=== PATIENT | female | born 1935 | race Caucasian/White ===

== ENCOUNTER → 2017-03-14 | Day surgery (SDC) | payer OTHER, MEDICARE ==
[2017-02-21 09:57] VITALS: Ht 158.8 cm; Wt 51.8 kg
[~2017-03-14] VITALS: Ht 158.8 cm; Wt 51.8 kg
[~2017-03-14] MED LIST: 500ML BSS 0.3ML EPI 1:1000PF IRRIG ONE; ACETAMINOPHEN 325 MG TAB PO PRN; AMVISC PLUS 0.8ML SYRINGE INT OCU ONE; ATROPINE SULFATE 0.1 MG/ML 5ML SYR IV PRN; BSS FLUSH ONE; EpHEDrine SULFATE INJ 50 MG/ML AMP IV PRN; EpINEphrine INJ 1MG/ML AMP 1 MG/ML AMP ONE; LACTATED RINGER'S 1000ML 500 ML IV SCH; LIDOCAINE 3.5% OPH GEL PER APPLICATION CHARGE ONE; LIDOCAINE HCL 1% MPF 2 ML VIAL ONE; MIDAZOLAM HCL 1 MG/ML 2ML VIAL ONE; MISCCAP80 PO; OCUCOAT 1 ML SOLN IO ONE; PHENYLEPHRINE HCL 10% OP SOLN PER DROP CHARGE OPR SCH; POVIDONE-IODINE OP SOLN 30 ML BTL ONE; PROPARACAINE 0.5% OP SOLN PER DROP CHARGE OPR SCH; TOBRAMYCIN/DEXAMETHASONE OPH OINT PER APPLN CHARGE ONE
[2017-03-14] MEDS: PHENYLEPHRINE HCL 2.5% OP SOLN PER DROP CHARGE OPR SCH ×2 (07:00→07:06)
[2017-03-14] MEDS: TROPICAMIDE 1% OP SOLN PER DROP CHARGE OPR SCH ×2 (07:01→07:06)
[2017-03-14] MEDS: CYCLOPENTOLATE HCL 1% OP SOLN PER DROP CHARGE OPR SCH ×2 (07:02→07:07)
[2017-03-14] MEDS: KETOROLAC 0.5% OP SOLN PER DROP CHARGE OPR SCH ×2 (07:03→07:08)
[2017-03-14] MEDS: GATIFLOXACIN OP SOLN PER DROP CHARGE OPR SCH ×2 (07:04→07:14)
--- NOTE | 2017-03-14 07:30 | History & Physical Bridge - SC ---
H&P Re-Evaluation Bridge Note: I have examined the patient, reviewed the History & Physical and in the interval since the performance of the History & Physical I have noted the following changes of clinical significance: Diagnosis: Right Cataract Procedure: Right Cataract Removal with Lens Implant No changes noted
--- NOTE | 2017-03-14 08:15 | Discharge Instructions-SurgCtr ---
Discharge Instructions Date of Service Mar 14, 2017. Visit Reason for Visit: Cataract Right Eye Discharge Discharge Diagnosis / Problem: cataract Discharge Goals Goal(s): Improve function Activity Recommendations Activity Limitations: per Instructions/Follow-up section Anesthesia . Post Anesthesia Instructions: If you have had General Anesthesia or IV Sedation: * Do not drive today. * Resume driving when surgeon permits. * Do not make important decisions or sign legal documents today. * Call surgeon for: 1. Temperature elevations greater than 101 degrees F. 2. Uncontrollable pain. 3. Excessive bleeding. 4. Persistent nausea and vomiting. 5. Medication intolerance (nausea, vomiting or rash). * For nausea and vomiting use only clear liquids such as: tea, soda, bouillon until nausea subsides, then gradually increase diet as tolerated. * If you have any concerns or questions, call your surgeon's office. If physician is unavailable and it is an emergency, call 911 or go to the nearest emergency room. . Diet Recommendations Home Diet: resume previous diet Procedures Procedures Performed: Right Cataract Phacoemulsification With Intraocular Lens Implant Pending Studies Studies pending at discharge: no Medical Emergencies . Who to Call and When: Medical Emergencies: If at any time you feel your situation is an emergency, please call 911 immediately. . Non-Emergent Contact Non-Emergency issues call your: [employer] . . "Provider Documentation" section prepared by Bud Wilhelm. .
--- NOTE | 2017-03-14 08:15 | [facility] Operative Report ---
Operative Report Date of Service Mar 14, 2017. Operative Report 1. PREOPERATIVE DIAGNOSIS: Cataract of the right eye. 2. POSTOPERATIVE DIAGNOSIS: Same. 3. PROCEDURE: Phacoemulsification with intraocular lens implantation of the right eye. SURGEON: Dr. Bud Wilhelm. ANESTHESIA: Topical Lidocaine gel, 1% Non- Preserved intracameral Lidocaine, and monitored intravenous sedation. INDICATIONS FOR THE PROCEDURE: The patient is a 81 - year-old female with a history of cataract of the right eye causing significant visual impairment. The details of the proposed procedure were explained to the patient who asked appropriate questions and following discussion of all risks, benefits and alternatives agreed to have the procedure done. 4. OPERATION AND FINDINGS: DESCRIPTION OF PROCEDURE: After informed consent was obtained, the patient was brought to the Operating Room at the [facility]. The patient was placed in a supine position and then the right eye was prepped and draped in the usual sterile fashion for intraocular surgery. A drop of topical Lidocaine gel was placed in the operative eye. A wire lid speculum was then placed in the fornices. A corneal paracentesis was then created temporally. The Non-Preserved Lidocaine was then instilled into the anterior chamber. The anterior chamber was then pressurized with viscoelastic. A 2.0 mm clear corneal incision was then created temporally. A cystotome was inserted into the anterior chamber and used to create a tear in the anterior lens capsule. This capsular tear was then used to create a small flap and the flap was dragged in a counterclockwise direction in order to create a continuous curvilinear capsulorrhexis. Hydrodissection was accomplished with balanced salt solution. Phacoemulsification of the lens nucleus was then performed in a standard [id number] technique. The phaco time was 38 seconds with an average power of 19 %. The remaining cortical material was removed using irrigation aspiration. The capsular bag was then filled with viscoelastic. A Bausch & Lomb MI60L +20.0 diopters lens was then loaded into the injector and injected into the capsular bag. The remaining viscoelastic was removed with the irrigation aspiration handpiece. The wound was hydrated and then checked and found to be watertight. The intraocular pressure was checked and found to be adequate. The wire lid speculum was removed and the patient's face was cleaned and dried. TobraDex ointment was placed in the inferior fornix. The patient was discharged to the Recovery Room having tolerated the procedure well. There were no complications. The patient will be seen tomorrow in the office for follow-up. I attest to the content of the Intraoperative Record and any orders documented therein. Any exceptions are noted below.
[2017-03-14 08:16] VITALS: TEMP 36.7
[2017-03-14 08:36] VITALS: BP 107/66; PULSE 69; O2SAT 98
--- NOTE | 2017-03-14 08:38 | Anesthesia Progress Nt - [facility] ---
Anesthesia Post Op Note Date & Time Mar 14, 2017 at 08:37 Vital Signs Pain Intensity: 0 Vital Signs Past 12 Hours Date Time Temp Pulse Resp B/P (MAP) Pulse Ox O2 Delivery O2 Flow Rate FiO2 03/14/17 08:16 36.7 72 16 105/65 (78) 99 Room Air 03/14/17 06:52 36.7 70 16 144/70 (94) 99 Room Air Notes Mental Status: alert / awake / arousable, participated in evaluation Pt Amnestic to Procedure: Yes Nausea / Vomiting: adequately controlled Pain: adequately controlled Airway Patency, RR, SpO2: stable & adequate BP & HR: stable & adequate Hydration State: stable & adequate Anesthetic Complications: no major complications apparent
--- NOTE | 2017-03-14 08:52 | Anesthesia Progress Nt - [facility] ---
Anesthesia Post Op Note Date & Time Mar 14, 2017 at 08:52 Vital Signs Pain Intensity: 0 Vital Signs Past 12 Hours Date Time Temp Pulse Resp B/P (MAP) Pulse Ox O2 Delivery O2 Flow Rate FiO2 03/14/17 08:36 69 16 107/66 (80) 98 Room Air 03/14/17 08:16 36.7 72 16 105/65 (78) 99 Room Air 03/14/17 06:52 36.7 70 16 144/70 (94) 99 Room Air Notes Mental Status: alert / awake / arousable, participated in evaluation Pt Amnestic to Procedure: Yes Nausea / Vomiting: adequately controlled Pain: adequately controlled Airway Patency, RR, SpO2: stable & adequate BP & HR: stable & adequate Hydration State: stable & adequate Anesthetic Complications: no major complications apparent
== END | disposition home or self-care (01) ==
LOC: X.SURG 06:39
PROVIDERS: ATTEND Ophthalmology
DX: H26.9 Unspecified cataract (principal); Z88.1 Allergy status to other antibiotic agents; Z88.2 Allergy status to sulfonamides; Z90.710 Acquired absence of both cervix and uterus; Z98.890 Other specified postprocedural states

== ENCOUNTER → 2017-04-18 | Day surgery (SDC) | payer OTHER, MEDICARE ==
[2017-03-28 10:47] VITALS: Ht 158.8 cm; Wt 51.8 kg
[~2017-04-18] VITALS: Ht 158.8 cm; Wt 51.8 kg
[~2017-04-18] MED LIST changes: -OCUCOAT 1 ML SOLN IO ONE; +PHENYLEPHRINE HCL 10% OP SOLN PER DROP CHARGE OPL SCH; -PHENYLEPHRINE HCL 10% OP SOLN PER DROP CHARGE OPR SCH; +PROPARACAINE 0.5% OP SOLN PER DROP CHARGE OPL SCH; -PROPARACAINE 0.5% OP SOLN PER DROP CHARGE OPR SCH
[2017-04-18] MEDS: PHENYLEPHRINE HCL 2.5% OP SOLN PER DROP CHARGE OPL SCH ×2 (11:06→11:13)
[2017-04-18] MEDS: TROPICAMIDE 1% OP SOLN PER DROP CHARGE OPL SCH ×2 (11:07→11:14)
[2017-04-18] MEDS: CYCLOPENTOLATE HCL 1% OP SOLN PER DROP CHARGE OPL SCH ×2 (11:08→11:15)
[2017-04-18] MEDS: KETOROLAC 0.5% OP SOLN PER DROP CHARGE OPL SCH ×2 (11:09→11:16)
[2017-04-18] MEDS: GATIFLOXACIN OP SOLN PER DROP CHARGE OPL SCH ×2 (11:10→11:20)
--- NOTE | 2017-04-18 11:33 | History & Physical Bridge - SC ---
H&P Re-Evaluation Bridge Note: I have examined the patient, reviewed the History & Physical and in the interval since the performance of the History & Physical I have noted the following changes of clinical significance: No changes noted
--- NOTE | 2017-04-18 12:18 | Discharge Instructions-SurgCtr ---
Discharge Instructions Date of Service Apr 18, 2017. Visit Reason for Visit: Cataract Left Eye Discharge Discharge Diagnosis / Problem: cataract Discharge Goals Goal(s): Improve function Activity Recommendations Activity Limitations: per Instructions/Follow-up section Anesthesia . Post Anesthesia Instructions: If you have had General Anesthesia or IV Sedation: * Do not drive today. * Resume driving when surgeon permits. * Do not make important decisions or sign legal documents today. * Call surgeon for: 1. Temperature elevations greater than 101 degrees F. 2. Uncontrollable pain. 3. Excessive bleeding. 4. Persistent nausea and vomiting. 5. Medication intolerance (nausea, vomiting or rash). * For nausea and vomiting use only clear liquids such as: tea, soda, bouillon until nausea subsides, then gradually increase diet as tolerated. * If you have any concerns or questions, call your surgeon's office. If physician is unavailable and it is an emergency, call 911 or go to the nearest emergency room. . Diet Recommendations Home Diet: resume previous diet Procedures Procedures Performed: Left Cataract Phacoemulsification With Intraocular Lens Implant Pending Studies Studies pending at discharge: no Medical Emergencies . Who to Call and When: Medical Emergencies: If at any time you feel your situation is an emergency, please call 911 immediately. . Non-Emergent Contact Non-Emergency issues call your: [employer] . . "Provider Documentation" section prepared by Bud Wilhelm. .
--- NOTE | 2017-04-18 12:19 | [facility] Operative Report ---
Operative Report Date of Service Apr 18, 2017. Operative Report 1. PREOPERATIVE DIAGNOSIS: Cataract of the left eye. 2. POSTOPERATIVE DIAGNOSIS: Same. 3. PROCEDURE: Phacoemulsification with intraocular lens implantation of the left eye. SURGEON: Dr. Bud Wilhelm. ANESTHESIA: Topical Lidocaine gel, 1% Non- Preserved intracameral Lidocaine, and monitored intravenous sedation. INDICATIONS FOR THE PROCEDURE: The patient is a 81 - year-old female with a history of cataract of the left eye causing significant visual impairment. The details of the proposed procedure were explained to the patient who asked appropriate questions and following discussion of all risks, benefits and alternatives agreed to have the procedure done. 4. OPERATION AND FINDINGS: DESCRIPTION OF PROCEDURE: After informed consent was obtained, the patient was brought to the Operating Room at the [facility]. The patient was placed in a supine position and then the left eye was prepped and draped in the usual sterile fashion for intraocular surgery. A drop of topical Lidocaine gel was placed in the operative eye. A wire lid speculum was then placed in the fornices. A corneal paracentesis was then created temporally. The Non-Preserved Lidocaine was then instilled into the anterior chamber. The anterior chamber was then pressurized with viscoelastic. A 2.0 mm clear corneal incision was then created temporally. A cystotome was inserted into the anterior chamber and used to create a tear in the anterior lens capsule. This capsular tear was then used to create a small flap and the flap was dragged in a counterclockwise direction in order to create a continuous curvilinear capsulorrhexis. Hydrodissection was accomplished with balanced salt solution. Phacoemulsification of the lens nucleus was then performed in a standard [id number] technique. The phaco time was 26 seconds with an average power of 12 %. The remaining cortical material was removed using irrigation aspiration. The capsular bag was then filled with viscoelastic. A Bausch & Lomb MI60L +20.0 diopters lens was then loaded into the injector and injected into the capsular bag. The remaining viscoelastic was removed with the irrigation aspiration handpiece. The wound was hydrated and then checked and found to be watertight. The intraocular pressure was checked and found to be adequate. The wire lid speculum was removed and the patient's face was cleaned and dried. TobraDex ointment was placed in the inferior fornix. The patient was discharged to the Recovery Room having tolerated the procedure well. There were no complications. The patient will be seen tomorrow in the office for follow-up. I attest to the content of the Intraoperative Record and any orders documented therein. Any exceptions are noted below.
--- NOTE | 2017-04-18 12:54 | Anesthesia Progress Nt - [facility] ---
Anesthesia Post Op Note Date & Time Apr 18, 2017 at 12:53 Vital Signs Pain Intensity: 0 Vital Signs Past 12 Hours Date Time Temp Pulse Resp B/P (MAP) Pulse Ox O2 Delivery O2 Flow Rate FiO2 04/18/17 12:18 36.4 69 14 102/69 (80) 95 Room Air 04/18/17 10:58 36.5 67 22 120/74 (89) 100 Room Air Notes Mental Status: alert / awake / arousable, participated in evaluation Pt Amnestic to Procedure: Yes Nausea / Vomiting: adequately controlled Pain: adequately controlled Airway Patency, RR, SpO2: stable & adequate BP & HR: stable & adequate Hydration State: stable & adequate Anesthetic Complications: no major complications apparent
[2017-04-18 13:01] VITALS: BP 110/73; PULSE 68; O2SAT 96
== END | disposition home or self-care (01) ==
LOC: X.SURG 10:35
PROVIDERS: ATTEND Ophthalmology
DX: H26.9 Unspecified cataract (principal); K21.9 Gastro-esophageal reflux disease without esophagitis; K58.9 Irritable bowel syndrome, unspecified; Z79.899 Other long term (current) drug therapy

== ENCOUNTER 2017-07-28 17:38 | Emergency (ER) | payer OTHER, MEDICARE ==
[~2017-07-28] VITALS: Ht 158.8 cm; Wt 53.3 kg
[~2017-07-28 17:38] MED LIST changes: -500ML BSS 0.3ML EPI 1:1000PF IRRIG ONE; -ACETAMINOPHEN 325 MG TAB PO PRN; -AMVISC PLUS 0.8ML SYRINGE INT OCU ONE; -ATROPINE SULFATE 0.1 MG/ML 5ML SYR IV PRN; -BSS FLUSH ONE; -EpHEDrine SULFATE INJ 50 MG/ML AMP IV PRN; -EpINEphrine INJ 1MG/ML AMP 1 MG/ML AMP ONE; -LACTATED RINGER'S 1000ML 500 ML IV SCH; -LIDOCAINE 3.5% OPH GEL PER APPLICATION CHARGE ONE; -LIDOCAINE HCL 1% MPF 2 ML VIAL ONE; -MIDAZOLAM HCL 1 MG/ML 2ML VIAL ONE; -PHENYLEPHRINE HCL 10% OP SOLN PER DROP CHARGE OPL SCH; -POVIDONE-IODINE OP SOLN 30 ML BTL ONE; -PROPARACAINE 0.5% OP SOLN PER DROP CHARGE OPL SCH; -TOBRAMYCIN/DEXAMETHASONE OPH OINT PER APPLN CHARGE ONE
[2017-07-28 17:45] VITALS: Ht 158.8 cm; Wt 53.3 kg
[2017-07-28 18:10] VITALS: O2SAT 99
[2017-07-28 18:23] LABS: BASO % 0.4 %; BASO ABS # 0.03 K/uL (0-0.2); EOS % 0.1 %; EOS ABS # 0.01 K/uL (0-0.5); HEMATOCRIT 38.3 % (37-47); HEMOGLOBIN 13.3 g/dL (12.0-16.0); IG# 0.02 K/uL (0.00-0.02); LYMPH % 24.3 %; LYMPH ABS # 1.65 K/uL (1.2-3.4); MEAN CELL VOLUME 100.8 fL (80-100); MEAN CORPUSCULAR HGB CONC 34.7 g/dl (32-36); MEAN PLATELET VOLUME 8.7 fL (7.4-10.4); MONO % 12.7 %; MONO ABS # 0.86 K/uL (0.11-0.59); NEUT % 62.2 %; NEUT ABS # 4.22 K/uL (1.4-6.5); PLATELET COUNT 239 K/uL (130-400); RED CELL DISTRIBUTION WIDTH CV 14.2 % (11.5-14.5); RED CELL DISTRIBUTION WIDTH SD 52.2 fL (36.4-46.3); WHITE BLOOD COUNT 6.79 K/uL (4.8-10.8)
[2017-07-28 18:32] LABS: PTT PATIENT 25.9 SECONDS (21.0-31.0)
[2017-07-28] MEDS ORDERED: GI COCKTAIL PO STA (18:32)
[2017-07-28] MEDS ORDERED: ACETAMINOPHEN 325 MG TAB PO STA (18:32)
[2017-07-28] MEDS ORDERED: FAMOTIDINE 20 MG TAB PO ONE (18:45)
--- NOTE | 2017-07-28 18:47 | EMERGENCY ROOM VISIT NOTE ---
History Report prepared by Laney: Bryan Sneed Under the Supervision of: Dr. Enrrique Singh M.D. First contact with patient: 18:00 Chief Complaint: CHEST PAIN Stated Complaint: CHEST PAINS Nursing Triage Summary: Patient reports intermittent chest pains two nights ago. Patient has a history of costracondritis and thought that the chest pains were related to that. Patient states "It's kind of a sharp pain maybe. On the way here, I developed a burning sensation in the left side of my chest." Patient is concerned that the pain could be digestion related. Patient reports fracturing the left upper arm in March. She has had therapy on the arm since that time and constantly has aching and tingling in the left arm. History of Present Illness The patient is an 81 year old white female with a past medical history of costochondritis who presents to the ED with a cc of constant, sharp, left-sided chest pain beginning yesterday. The patient states her pain was intermittent yesterday. She reports heat relieved her symptoms two times throughout the day. The patient notes she tried using heat a third, but it did not work, and her pain became constant. Positive recent broken humerus that she has been completing PT for. Pt started using resistant bands in her last therapy session , and she is right handed. Negative radiating pain, a history of blood clots in her legs or lungs, a history of heart or lung problems, recent travel, recent falling, worsening pain upon exertion, SOB, cough, fever, chills, taking pain medication at home, nausea, vomiting, sweating, abdominal pain, leg pain, leg swelling, recent antibiotic use, stress test and heart catheterization two years ago. Source of History: patient Onset: yesterday Position: chest (left) Quality: sharp Timing: constant Modifying Factors (Relieving): other (heat 2/3 times) Associated Symptoms: No fevers, No chills, No cough, No SOB, No nausea, No vomiting, No abdominal pain Note: Associated symptoms: starting resistance bands at PT, negative stress test and heart catheterization two years ago. Denies: radiating pain, a history of blood clots in her legs or lungs, a history of heart or lung problems, recent travel, recent falling, worsening pain upon exertion, taking pain medication at home, sweating, leg pain, leg swelling, recent antibiotic use, Review of Systems See HPI for pertinent positives and negatives. A total of ten systems were reviewed and were otherwise negative. Past Medical & Surgical Medical Problems: (1) C. difficile colitis (2) Costochondritis Family History Patient reports no known family medical history. Social History Smoking Status: Never Smoker Marital Status: Occupation Status: retired Current/Historical Medications Scheduled Probiotic Product (Probiotic), 1 CAP PO QAM Allergies Coded Allergies: Ciprofloxacin (Verified Allergy, Unknown, STOMACH PAINS, 04/26/17) Metronidazole (Verified Allergy, Unknown, STOMACH/DIGESTIVE PAIN, 04/26/17 ) NSAIDs (Verified Allergy, Unknown, STOMACH PAIN, 04/26/17) Sulfa Antibiotics (Verified Allergy, Unknown, SEVERE STOMACH PAINS, ) Physical Exam Vital Signs Date Time Temp Pulse Resp B/P (MAP) Pulse Ox O2 Delivery O2 Flow Rate FiO2 07/28/17 20:01 82 16 121/66 98 Room Air 07/28/17 19:07 90 16 136/69 98 Room Air 07/28/17 18:12 94 07/28/17 18:10 99 Room Air 07/28/17 18:00 Room Air 07/28/17 17:45 87 18 146/82 99 Room Air Physical Exam GENERAL: Awake, alert, well-appearing, NAD HENT: Normocephalic, atraumatic. EYES: Normal conjunctiva. Sclera non-icteric. NECK: Supple. No nuchal rigidity. FROM. RESPIRATORY: CTAB, no rhonchi, wheezing, crackles CARDIAC: RRR, no MRG ABDOMEN: Soft, NTND, BS+ MSK: Mild, reproducible chest wall TTP - no erythema, calor, or crepitus. no LE edema NEURO: GCS 15, CN 2-12 intact, moves all 4s on command SKIN: No rash or jaundice noted. Medical Decision & Procedures ER Provider Diagnostic Interpretation: X-ray: Per my interpretation, radiologist review. CHEST ONE VIEW PORTABLE HISTORY: 81 years-old Female CHEST PAIN acute atypical chest pain COMPARISON: None available TECHNIQUE: Portable AP view of the chest FINDINGS: Cardiomediastinal and hilar silhouettes are within normal limits. No pneumothorax, pleural effusion, focal airspace consolidation or overt pulmonary edema. The bones of the chest appear grossly intact. IMPRESSION: No acute process. The above report was generated using voice recognition software. It may contain grammatical, syntax or spelling errors. Electronically signed by: Isaac Coleman M.D. 07/28/2017 6:54 PM Dictated Date/Time: 07/28/2017 6:53 PM Laboratory Results 07/28/17 18:10 Red Blood Count 3.80, Mean Corpuscular Volume 100.8, Mean Corpuscular Hemoglobin 35.0, Mean Corpuscular Hemoglobin Concent 34.7, Mean Platelet Volume 8.7, Neutrophils (%) (Auto) 62.2, Lymphocytes (%) (Auto) 24.3, Monocytes (%) ( Auto) 12.7, Eosinophils (%) (Auto) 0.1, Basophils (%) (Auto) 0.4, Neutrophils # (Auto) 4.22, Lymphocytes # (Auto) 1.65, Monocytes # (Auto) 0.86, Eosinophils # ( Auto) 0.01, Basophils # (Auto) 0.03 07/28/17 18:10 Test 07/28/17 18:10 White Blood Count 6.79 K/uL (4.8-10.8) Red Blood Count 3.80 M/uL (4.2-5.4) Hemoglobin 13.3 g/dL (12.0-16.0) Hematocrit 38.3 % (37-47) Mean Corpuscular Volume 100.8 fL (80-100) Mean Corpuscular Hemoglobin 35.0 pg (25-34) Mean Corpuscular Hemoglobin Concent 34.7 g/dl (32-36) Platelet Count 239 K/uL (130-400) Mean Platelet Volume 8.7 fL (7.4-10.4) Neutrophils (%) (Auto) 62.2 % Lymphocytes (%) (Auto) 24.3 % Monocytes (%) (Auto) 12.7 % Eosinophils (%) (Auto) 0.1 % Basophils (%) (Auto) 0.4 % Neutrophils # (Auto) 4.22 K/uL (1.4-6.5) Lymphocytes # (Auto) 1.65 K/uL (1.2-3.4) Monocytes # (Auto) 0.86 K/uL (0.11-0.59) Eosinophils # (Auto) 0.01 K/uL (0-0.5) Basophils # (Auto) 0.03 K/uL (0-0.2) RDW Standard Deviation 52.2 fL (36.4-46.3) RDW Coefficient of Variation 14.2 % (11.5-14.5) Immature Granulocyte % (Auto) 0.3 % Immature Granulocyte # (Auto) 0.02 K/uL (0.00-0.02) Prothrombin Time 10.6 SECONDS (9.0-12.0) Prothromb Time International Ratio 1.0 (0.9-1.1) Activated Partial Thromboplast Time 25.9 SECONDS (21.0-31.0) Partial Thromboplastin Ratio 1.0 Anion Gap 9.0 mmol/L (3-11) Est Creatinine Clear Calc Drug Dose 54.1 ml/min Estimated GFR () 96.0 Estimated GFR (Non- 82.8 BUN/Creatinine Ratio 21.0 (10-20) Calcium Level 9.1 mg/dl (8.5-10.1) Magnesium Level mg/dl (1.8-2.4) Total Bilirubin 1.6 mg/dl (0.2-1) Direct Bilirubin mg/dl (0-0.2) Aspartate Amino Transf (AST/SGOT) U/L (15-37) Alanine Aminotransferase (ALT/SGPT) 28 U/L (12-78) Alkaline Phosphatase 102 U/L (45-117) Troponin I < 0.015 ng/ml (0-0.045) Pro-B-Type Natriuretic Peptide 140 pg/ml (0-1800) Total Protein 7.5 gm/dl (6.4-8.2) Albumin 3.8 gm/dl (3.4-5.0) Lipase 148 U/L (73-393) Laboratory results reviewed by me Medications Administered Medications (Trade) Dose Ordered Sig/Chacorta Route Start Time Stop Time Status Last Admin Dose Admin Acetaminophen (Tylenol Tab) 650 mg NOW STAT PO 07/28/17 18:32 07/28/17 18:33 DC 07/28/17 19:05 650 MG Famotidine (Pepcid Tab) 20 mg NOW ONCE PO 07/28/17 18:45 07/28/17 18:46 DC 07/28/17 19:04 20 MG Miscellaneous Medication (Gi Cocktail) 24 ml ONE STAT PO 07/28/17 18:32 07/28/17 18:33 DC 07/28/17 18:32 24 ML ECG Per My Interpretation Indication: chest pain Rate (beats per minute): 84 Rhythm: normal sinus Findings: no acute ischemic change, left axis deviation, no ectopy, other ( Normal intervals) ED Course 1817: The patient was evaluated in room B03B. A complete history and physical exam was performed. 1948: I reevaluated the patient. Discussed results and discharge instructions: she verbalized understanding and agreement. The patient is ready for discharge. Medical Decision The patient is an 81 year old white female with a past medical history of costochondritis who presents to the ED with a cc of constant, sharp, left-sided chest pain beginning yesterday. Differential diagnosis: Etiologies such as cardiac ischemia, aortic dissection, pulmonary embolism, pneumonia, pneumothorax, musculoskeletal, infections, pericarditis, myocarditis , esophageal rupture, gastrointestinal, as well as others were entertained. Patient was seen and evaluated the bedside. Patient complained of some left- sided chest pain. Patient states this is nonexertional and sharp. Patient denies any nausea, vomiting, or diaphoresis. Patient state is been intermittent since yesterday. Patient does have a prior history of costochondritis. Patient does have reproducible chest wall pain. Patient had a nonischemic EKG and negative troponin. Patient had no exertional symptoms here in the emergency department. Patient does have a heart score less than 4. Less likely to be ACS. Also of note the patient did have a heart catheterization 2 years prior that was normal along with a negative stress test. Patient does have a follow-up appointment on Monday. I believe this is a suitable follow-up in order to further discuss any of her chest discomfort. Wells of 0, less likely PE. Patient was told additional think she may be able to do for possible costochondritis. Patient was deemed suitable for outpatient follow-up and treatment at this time. Patient was given strict follow-up, discharge, and return precautions. All questions were answered. Patient was deemed suitable for outpatient follow-up at this time. Patient agreed with the plan of care and was safely discharged home. Medication Reconcilliation Current Medication List: was personally reviewed by me Blood Pressure Screening Patient's blood pressure: Normal blood pressure Blood pressure disposition: Did not require urgent referral Impression Primary Impression: Costochondritis Additional Impression: Chest wall pain Scribe Attestation The scribe's documentation has been prepared under my direction and personally reviewed by me in its entirety. I confirm that the note above accurately reflects all work, treatment, procedures, and medical decision making performed by me. Departure Information Dispostion Home / Self-Care Referrals Familia Yanez M.D. (PCP) Forms HOME CARE DOCUMENTATION FORM, IMPORTANT VISIT INFORMATION Patient Instructions ED Chest Pain Nahomy, Mary Jo [facility] Additional Instructions Please return to the emergency department if you have worsening or recurrent symptoms not amenable to at-home treatment. Please call for a follow-up appointment with her primary care physician. Please take your medications as prescribed. If you have other concerns and/or complaints please feel free to also call your primary care physician's office or return the ED for further evaluation, management, and treatment. You may take tylenol 1000 mg every 6 hours as needed for pain. You may try BenGay or icy hot. He may alternate moist heat and ice to the area. Take your medications as prescribed. You have been examined and treated today on an emergency basis only. This is not a substitute for, or an effort to provide, complete comprehensive medical care. It is impossible to recognize and treat all injuries or illnesses in a single emergency department visit. It is therefore important that you follow up closely with [facility], your PCP, and/or your specialist(s). Call as soon as possible for an appointment. Thank you for your time and consideration. I look forward to speaking with you again soon. Please don't hesitate to call us if you have any questions. Problem Qualifiers
[2017-07-28 18:51] LABS: ALBUMIN 3.8 gm/dl (3.4-5.0); ALT/SGPT 28 U/L (12-78); BLOOD UREA NITROGEN 14 mg/dl (7-18); CALCIUM 9.1 mg/dl (8.5-10.1); CARBON DIOXIDE 25 mmol/L (21-32); CREATININE 0.66 mg/dl (0.60-1.20); GLUCOSE 92 mg/dl (70-99); LIPASE 148 U/L (73-393); SODIUM 131 mmol/L (136-145)
[2017-07-28 18:55] LABS: ALKALINE PHOSPHATASE 102 U/L (45-117); TOTAL PROTEIN 7.5 gm/dl (6.4-8.2)
--- NOTE | 2017-07-28 18:55 | DIAGNOSTIC IMAGING REPORT ---
CHEST ONE VIEW PORTABLE HISTORY: 81 years-old Female CHEST PAIN acute atypical chest pain COMPARISON: None available TECHNIQUE: Portable AP view of the chest FINDINGS: Cardiomediastinal and hilar silhouettes are within normal limits. No pneumothorax, pleural effusion, focal airspace consolidation or overt pulmonary edema. The bones of the chest appear grossly intact. IMPRESSION: No acute process. The above report was generated using voice recognition software. It may contain grammatical, syntax or spelling errors. Electronically signed by: Isaac Coleman M.D. 07/28/2017 6:54 PM Dictated Date/Time: 07/28/2017 6:53 PM
[2017-07-28] MEDS ORDERED: ALUMINUM/MAGNESIUM SUSP 30 ML UDC ONE (19:03)
[2017-07-28] MEDS ORDERED: LIDOCAINE HCL 2% VISC SOLN 20 ML UDC ONE (19:03)
[2017-07-28 20:01] VITALS: BP 121/66; PULSE 82; O2SAT 98
== END 2017-07-28 20:05 | disposition home or self-care (01) ==
LOC: C.EDB 17:40
DX: M94.0 Chondrocostal junction syndrome [Tietze] (principal); Z88.1 Allergy status to other antibiotic agents; Z88.6 Allergy status to analgesic agent; Z88.2 Allergy status to sulfonamides

== ENCOUNTER 2018-06-17 12:33 | Inpatient (IN) ==
--- NOTE | 2018-06-17 13:11 | XRay Report ---
XR hip RT 2-3V w pelvis CLINICAL HISTORY: fall. Right hip pain. COMPARISON STUDY: None. FINDINGS: There is a mildly impacted subcapital right femoral neck fracture. No dislocation. The visu alized pelvic bones and left hip are intact. IMPRESSION: Mildly impacted subcapital right femoral neck fracture. Electronically signed by: Dilip Lebron M.D. 06/17/2018 1:10 PM
--- NOTE | 2018-06-17 13:18 | Emergency Department Note ---
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 She states she was wearing socks and vacuuming the hardwood floor when she slipped and fell onto her right hip. She notes she has pain radiation to her groin but denies any back pain, knee pain. The patient reports standing worsens her pain and she has never hurt her hip before. Home Medications Home Medications Medication Instructions Recorded Confirmed Type No Known Home Medications 06/17/18 06/17/18 History Allergies Allergy/AdvReac Type Severity Reaction Status Date / Time Cipro Allergy Unknown STOMACH Verified 04/26/17 21:15 PAINS ciprofloxacin Allergy Unknown STOMACH Verified 06/17/18 12:55 PAINS metronidazole Allergy Unknown STOMACH/DIGESTIVE Verified 06/17/18 12:55 PAIN NSAIDS (Non-Steroidal Allergy Unknown STOMACH Verified 06/17/18 12:55 Anti-Inflamma PAIN Sulfa (Sulfonamide Allergy Unknown SEVERE Verified 06/17/18 12:55 Antibiotics) STOMACH PAINS Past Med/Surg History Medical History Costochondritis (Chronic) Family History Other Family history non-contributory Social History marital status: Current Living Situation: Spouse Other Information That Helps Us Care for You: No Feels Safe at Home: Yes Safety Concerns: Feels Safe At This Time Smoking Status: Never smoker Do You Dip or Chew Tobacco: No Second Hand Exposure: No Tobacco Cessation Education Requested by Patient: No Hx Alcohol Use: No Hx Substance Use: No Beliefs That Will Affect Care: None Preferred Language: [place] Communication Ability: Effective Digital Marketing Lead Required: No Review of Systems See HPI for pertinent positives & negatives. and A total of 10 systems reviewed and were otherwise negative Physical Exam Vital Signs Vital Signs - 24 hr 06/17/18 12:25 06/17/18 13:40 06/17/18 14:48 Temperature 36.6 C Temperature Source Oral Sepsis Recent Fever Within 48 Hours No Sepsis New/Unexplained Change in Mental Status No Sepsis Action Taken by Nursing No Action Required Pulse Rate 75 Pulse Rate [Apical] 90 104 H Pulse Rhythm Regular Pulse Rhythm [Apical] Regular Regular Pulse Strength Normal Pulse Strength [Apical] Normal Normal Respiratory Rate 16 16 20 Respiratory Effort / Characteristics Non-Labored Spontaneous Non-Labored Spontaneous Non-Labored Respiratory Depth Normal Normal Normal Respiratory Pattern Regular Regular Regular Blood Pressure 125/62 Blood Pressure [Right Arm] 96/79 L 136/82 Blood Pressure Mean 83 Blood Pressure Mean [Right Arm] 84 100 Blood Pressure Position Lying Blood Pressure Position [Right Arm] Lying Sitting Pulse Oximetry 98 97 96 Oxygen Delivery Method Room Air Room Air Room Air 06/17/18 16:03 06/17/18 16:44 Temperature 36.5 C Temperature Source Oral Sepsis Recent Fever Within 48 Hours Sepsis New/Unexplained Change in Mental Status Sepsis Action Taken by Nursing Pulse Rate 92 H Pulse Rate [Apical] 93 H Pulse Rhythm Pulse Rhythm [Apical] Pulse Strength Pulse Strength [Apical] Respiratory Rate 20 17 Respiratory Effort / Characteristics Respiratory Depth Respiratory Pattern Blood Pressure Blood Pressure [Right Arm] 109/72 Blood Pressure Mean Blood Pressure Mean [Right Arm] 84 Blood Pressure Position Blood Pressure Position [Right Arm] Lying Pulse Oximetry 96 96 Oxygen Delivery Method Room Air Room Air GENERAL: Patient is awake alert in no acute distress patient is resting comfortably and showing no signs of anxiety EYES: The conjunctivae are clear. The pupils are round and reactive. EARS, NOSE, MOUTH AND THROAT: The nose is without any evidence of any deformity. Mucous membranes are moist tongue is midline NECK: The neck is nontender and supple. RESPIRATORY: Normal respiratory effort is noted there is no evidence of wheezing rhonchi or rales CARDIOVASCULAR: Regular rate and rhythm noted there no murmurs rubs or gallops normal S1 normal S2 GASTROINTESTINAL: The abdomen is soft. Bowel sounds are present in all quadrants. Abdomen is nontender BACK: No midline tenderness or or step-off noted range of motion in flexion extension as well as rotation no signs of muscle spasm noted MUSCULOSKELETAL/EXTREMITIES: There is no rotation or shortening of the right hip however there is pain with range of motion of the right hip. There is pain localized to the right groin. SKIN: There is no obvious evidence of any rash. There are no petechiae, pallor or cyanosis noted. NEUROLOGIC: Patient is awake alert and oriented x3 strength is symmetric patellar reflexes are 2+ bilaterally Course 1239: Past medical records reviewed. The patient was evaluated in room B5, and a complete history and physical examination were performed. 1430: I reviewed the patient's case with Marlene Boothe. He will evaluate the patient for further management. Consultations Consultation #1: I reviewed the patient's case with Marlene Boothe. He will evaluate the patient for further management. Time: 14:30 Administered Medications Acetaminophen (Ofirmev) 65 mls @ 200 mls/hr IV Q8H IRENE Stop: 07/17/18 15:59 Last Infusion: 06/17/18 16:00 Dose: 0 mls/hr Admin: 06/17/18 15:31 Dose: 200 mls/hr Potassium Chloride/Sodium Chloride (Normal Saline W/20 Meq Kcl) 20 meq in 1, 000 mls @ 60 mls/hr IV .[id number] IRENE Stop: 07/17/18 16:59 Last Admin: 06/17/18 18:16 Dose: 60 mls/hr Lidocaine (Lidoderm 5%) 1 patch TD QAM IRENE Stop: 07/17/18 15:29 Last Admin: 06/17/18 17:27 Dose: 1 patch Discontinued Medications Potassium Chloride (Klor-Con M10) 40 meq PO NOW STA Stop: 06/17/18 16:03 Last Admin: 06/17/18 17:29 Dose: 40 meq Medical Decision Making Differential Diagnosis Differential diagnoses include but are not limited to: fracture, dislocation, contusion, strain, ligamentous injury, tendon rupture, and septic joint. Medical Records Attestation: I reviewed the patient's medical records. Home Medications Current Medication List: was personally reviewed by me Laboratory Data Attestation: I reviewed the patient's lab results. Result diagrams: 06/17/18 13:35 06/17/18 13:35 Lab Results 06/17/18 06/17/18 06/17/18 Range/Units 13:35 13:35 13:35 WBC 11.63 H (4.8-10.8) K/uL RBC 3.65 L (4.2-5.4) M/uL Hgb 12.4 (12.0-16.0) g/dL Hct 37.3 (37-47) % MCV 102.2 H (80-100) fL MCH 34.0 (25-34) pg MCHC 33.2 (32-36) g/dL RDW Std Deviation 53.2 H (36.4-46.3) fL RDW Coeff of Alicia 14.3 (11.5-14.5) % Plt Count 214 (130-400) K/uL MPV 9.4 (7.4-10.4) fL Immature Gran % (Auto) 0.3 % Neut % (Auto) 83.0 % Lymph % (Auto) 7.1 % [place] % (Auto) 9.4 % Eos % (Auto) 0.0 % Baso % (Auto) 0.2 % Immature Gran # (Auto) 0.04 H (0.00-0.02) K/uL Neut # (Auto) 9.66 H (1.4-6.5) K/uL Lymph # (Auto) 0.82 L (1.2-3.4) K/uL [place] # (Auto) 1.09 H (0.11-0.59) K/uL Eos # (Auto) 0.00 (0-0.5) K/uL Baso # (Auto) 0.02 (0-0.2) K/uL PT 10.9 (9.0-12.0) Seconds INR 1.1 (0.9-1.1) APTT 25.9 (21.0-31.0) Seconds PTT Ratio 1.0 Sodium 135 L (136-145) mmol/L Potassium 3.4 L (3.5-5.1) mmol/L Chloride 100 (98-107) mmol/L Carbon Dioxide 27 (21-32) mmol/L Anion Gap 8.0 (3-11) BUN 16 (7-18) mg/dl Creatinine 0.63 (0.6-1.2) mg/dl Est Cr Clr Drug Dosing 54.5 ml/min Est GFR ( Amer) 96.8 Est GFR (Non-Af Amer) 83.5 BUN/Creatinine Ratio 25.8 H (10-20) Glucose 103 H (70-99) mg/dl Calcium 8.7 (8.5-10.1) mg/dl Magnesium 1.7 L (1.8-2.4) mg/dl Total Bilirubin 1.2 H (0.2-1) mg/dl Direct Bilirubin 0.2 (0-0.2) mg/dl AST 20 (15-37) U/L ALT 26 (12-78) U/L Alkaline Phosphatase 92 (45-117) U/L Troponin I < 0.015 (0-0.045) ng/ml Total Protein 7.1 (6.4-8.2) gm/dl Albumin 3.7 (3.4-5.0) gm/dl Blood Type Antibody Screen 06/17/18 Range/Units 13:50 WBC (4.8-10.8) K/uL RBC (4.2-5.4) M/uL Hgb (12.0-16.0) g/dL Hct (37-47) % MCV (80-100) fL MCH (25-34) pg MCHC (32-36) g/dL RDW Std Deviation (36.4-46.3) fL RDW Coeff of Alicia (11.5-14.5) % Plt Count (130-400) K/uL MPV (7.4-10.4) fL Immature Gran % (Auto) % Neut % (Auto) % Lymph % (Auto) % [place] % (Auto) % Eos % (Auto) % Baso % (Auto) % Immature Gran # (Auto) (0.00-0.02) K/uL Neut # (Auto) (1.4-6.5) K/uL Lymph # (Auto) (1.2-3.4) K/uL [place] # (Auto) (0.11-0.59) K/uL Eos # (Auto) (0-0.5) K/uL Baso # (Auto) (0-0.2) K/uL PT (9.0-12.0) Seconds INR (0.9-1.1) APTT (21.0-31.0) Seconds PTT Ratio Sodium (136-145) mmol/L Potassium (3.5-5.1) mmol/L Chloride (98-107) mmol/L Carbon Dioxide (21-32) mmol/L Anion Gap (3-11) BUN (7-18) mg/dl Creatinine (0.6-1.2) mg/dl Est Cr Clr Drug Dosing ml/min Est GFR ( Amer) Est GFR (Non-Af Amer) BUN/Creatinine Ratio (10-20) Glucose (70-99) mg/dl Calcium (8.5-10.1) mg/dl Magnesium (1.8-2.4) mg/dl Total Bilirubin (0.2-1) mg/dl Direct Bilirubin (0-0.2) mg/dl AST (15-37) U/L ALT (12-78) U/L Alkaline Phosphatase (45-117) U/L Troponin I (0-0.045) ng/ml Total Protein (6.4-8.2) gm/dl Albumin (3.4-5.0) gm/dl Blood Type A Negative Antibody Screen NEGATIVE Imaging Data Radiologist's Impression: Radiology results as stated below per my review and the radiologist's interpretation: XR hip RT 2-3V w pelvis CLINICAL HISTORY: fall. Right hip pain. COMPARISON STUDY: None. FINDINGS: There is a mildly impacted subcapital right femoral neck fracture. No dislocation. The visualized pelvic bones and left hip are intact. IMPRESSION: Mildly impacted subcapital right femoral neck fracture. Electronically signed by: Dilip Lebron M.D. 06/17/2018 1:10 PM XR chest 1V portable HISTORY: Right hip fracture. Preop. fall COMPARISON: Chest 07/28/2017. FINDINGS: The lungs are clear. Cardiac silhouette is normal in size. No pleural effusions. No pneumothorax. IMPRESSION: No acute process. Electronically signed by: Dilip Lebron M.D. 06/17/2018 1:46 PM ECG Data Attestation: I personally reviewed and interpreted this ECG as follows: Indication: other (hip pain) Rate (beats per minute): 93 Findings: + other (no acute ST segments) and + PVC Comparison ECG Date: from (07/28/17) Change: no significant change Blood Pressure Blood Pressure Findings: Normal blood pressure Blood Pressure Disposition: did not require urgent referral MDM Narrative The patient is an 82-year-old female who presented to the emergency department for an evaluation of right hip pain. The patient had a fall from a standing position on hardwood. She had pain with range of motion of her right hip but no significant shortening. X-rays did reveal a subcapital right hip fracture. I discussed the patient's laboratory and radiographic studies with her. I also discussed her case with the on-call [facility] hospitalist group as well as the on-call orthopedic physician for the patient's preferred group. They have agreed to evaluate the patient in the emergency department for further management and possible surgical management as well as disposition. Impression & Plan Hip fracture Discharge Plan Visit Data *Final* Discharge Date/Time: 06/17/18 16:03 Chief Complaint: Hip Pain Stated Complaint: fall, right hip pain ED Provider: Lenin Mai Discharge Problem: Hip fracture Patient Disposition: Admitted As Inpatient Discharge Instructions Interventions: ED Discharge Assessment Last Done: 06/17/18 16:03 The scribe's documentation has been prepared under my direction and personally reviewed by me in its entirety. I confirm that the note above accurately reflects all work, treatment, procedures, and medical decision making performed by me.
--- NOTE | 2018-06-17 13:48 | XRay Report ---
XR chest 1V portable HISTORY: Right hip fracture. Preop. fall COMPARISON: Chest 07/28/2017. FINDINGS: The lungs are clear. Cardiac silhouette is normal in size. No pleural effusions. No pneumot horax. IMPRESSION: No acute process. Electronically signed by: Dilip Lebron M.D. 06/17/2018 1:46 PM
[2018-06-17 13:53] LABS: Basophils # (auto) 0.02 K/uL (0-0.2); Basophils % (auto) 0.2 %; Hematocrit (blood only) 37.3 % (37-47); Hemoglobin 12.4 g/dL (12.0-16.0); Immature Granulocytes # (auto) 0.04 K/uL (0.00-0.02); Immature Granulocytes % (auto) 0.3 %; Lymphocytes # (auto) 0.82 K/uL (1.2-3.4); Lymphocytes % (auto) 7.1 %; Mean Corpuscular Hgb Conc 33.2 g/dL (32-36); Mean Corpuscular Volume 102.2 fL (80-100); Mean Platelet Volume 9.4 fL (7.4-10.4); Monocytes # (auto) 1.09 K/uL (0.11-0.59); Monocytes % (auto) 9.4 %; Neutrophils # (auto) 9.66 K/uL (1.4-6.5); Platelet Count 214 K/uL (130-400); RDW Coefficient of Variation 14.3 % (11.5-14.5); RDW Standard Deviation 53.2 fL (36.4-46.3); Red Blood Count 3.65 M/uL (4.2-5.4); White Blood Count 11.63 K/uL (4.8-10.8)
[2018-06-17 14:01] LABS: INR 1.1 (0.9-1.1); Partial Thromboplastin Time 25.9 Seconds (21.0-31.0); Prothrombin Time 10.9 Seconds (9.0-12.0)
[2018-06-17 14:13] LABS: Alanine Aminotransferase 26 U/L (12-78); Albumin Level 3.7 gm/dl (3.4-5.0); Aspartate Aminotransferase 20 U/L (15-37); BUN Creatinine Ratio 25.8 (10-20); Bilirubin Direct 0.2 mg/dl (0-0.2); Blood Urea Nitrogen 16 mg/dl (7-18); Calcium 8.7 mg/dl (8.5-10.1); Carbon Dioxide 27 mmol/L (21-32); Chloride 100 mmol/L (98-107); Creatinine Clr Calc Pharmacy 54.5 ml/min; Est GFR (African American) 96.8; Est GFR (Non-African American) 83.5; Glucose 103 mg/dl (70-99); Potassium 3.4 mmol/L (3.5-5.1); Sodium 135 mmol/L (136-145)
[2018-06-17 14:18] LABS: Alkaline Phosphatase 92 U/L (45-117); Bilirubin,Total 1.2 mg/dl (0.2-1); Total Protein 7.1 gm/dl (6.4-8.2); Troponin I < 0.015 ng/ml (0-0.045)
[2018-06-17] MEDS: ACETAMINOPHEN 65 ML IV SCH (15:31)
[2018-06-17 15:41] LABS: Magnesium 1.7 mg/dl (1.8-2.4)
[2018-06-17] MEDS ORDERED: POTASSIUM CHLORIDE 10 MEQ TABCR PO STA (16:02)
--- NOTE | 2018-06-17 16:05 | Consultation Report ---
DATE OF ADMISSION: 06/17/2018 CHIEF COMPLAINT: Right groin pain. HISTORY OF PRESENT ILLNESS: Patient is an 82-year-old remarkably healthy female who is independent ambulator, who was vacuuming underneath her couch earlier today. She then kind of transitioned to the hardwood floor and sustained a fall on her right buttock area, acute onset of pain and groin pain. They called 911 and was brought to Emergency Room. There are no other injuries. She had no preexisting hip or groin pain. She is very active and healthy. PAST MEDICAL HISTORY: Noncontributory. PAST SURGICAL HISTORY: Previous surgeries include 1. Hysterectomy. 2. Hernia repair x2. ALLERGIES: 1. CIPRO. 2. FLAGYL. 3. SULFA. 4. NSAIDs WHICH CAUSED GI UPSET. MEDICATIONS: None. SOCIAL HISTORY: This is an 82-year-old female. She has 2 daughters who are physicians. She does not smoke. FAMILY HISTORY: Noncontributory. REVIEW OF SYSTEMS: Negative for diabetes, neurologic problem, vascular problem, bleeding disorders. No chest pain, no shortness of breath. No head injury, no loss of consciousness, no neck pain. She does have a history of GI upset with NSAIDS. PHYSICAL EXAMINATION: GENERAL: Examination reveals a pleasant, elderly, thin female. She is lying in bed and looks comfortable. VITAL SIGNS: Temperature is 36.6. Stable. MUSCULOSKELETAL: A general musculoskeletal exam reveals full and painless range of motion of her cervical, thoracic, lumbar spine as well as both shoulders, both elbows, both hands, and the left lower extremity. Examination of the right lower extremity reveals some tenderness over her buttock and lateral hip area. Her skin is intact. Her leg lengths are equal. There is no visible deformity. She does have some pain with hip motion, but she can actually lift her leg off the bed with some assistance with her arm. She has no knee effusion. She is neurologically intact. IMAGING: X-ray of the right hip revealed valgus impacted femoral neck fracture, notes she has an underlying hip arthritis. LABORATORY DATA: White blood cell count is 11.63, hemoglobin 12.4, hematocrit 37.3. Electrolytes are stable. Potassium is slightly low at 3.4. ASSESSMENT: An 82-year-old quite healthy female with a right valgus impacted femoral neck fracture, status post a fall. No preexisting hip problems. PLAN: We talked about treatment options. Certainly the best treatment for this patient is a cannulated screw fixation. She is going to be admitted to the medicine service, and they are about to see her. She last ate at about 10:30 or 11:00, so we plan on doing this tomorrow. We will keep her n.p.o. after midnight. Will plan on cannulated screw fixation of her right femoral neck fracture. The risks and benefits of this procedure were explained to the patient and family including but not limited to DVT, PE, , infection, neurological injury, vascular injury, bleeding problem, pain, limited range of motion, stiffness, failure to relieve her symptoms, nonunion, malunion, avascular necrosis, need for further surgery in the future. Patient understands and desires to proceed. Informed consent is obtained. Will begin DVT prophylaxis including TEDs and SCDs. Will likely use aspirin postoperatively. Will hold on any preoperative anticoagulation as we are going to do this tomorrow.
[2018-06-17] MEDS ORDERED: ONDANSETRON INJ 2 MG/ML 2 ML VIAL IV PRN (16:41)
[2018-06-17] MEDS: LIDOCAINE 5% 1 PATCH TD SCH (17:27)
[2018-06-17] MEDS: NSS + 20MEQ KCL 20 MEQ/1,000 ML BAG IV SCH (18:16)
--- NOTE | 2018-06-17 18:56 | History & Physical Report ---
Date of Service June 17, 2018 Assessment & Plan (1) Hip fracture: Right Hip xray: IMPRESSION: Mildly impacted subcapital right femoral neck fracture. Discussed with Dr. Bradford Plan for screw fixation of the fracture tomorrow Patient has no known medical comorbidities, very good functional status No medical contraindication to proceed with surgery Patient is low to moderate risk for cardiopulmonary complications perioperatively in light of advanced age Hip fracture order set completed N.p.o. post midnight IV fluids ordered Discussed with patient and also patient's daughter over the phone, Dr. Teddy Escalante Plan of care with discussed in detail They are agreeable and comfortable with the plan of care (2) Hypokalemia: Replace with p.o. potassium (3) Hypomagnesemia: Replace with IV magnesium (4) DVT prophylaxis: SCDs for now Lovenox post surgery (5) Discharge planning issues: Anticipate discharge to rehab once cleared by Luke O post surgery History of Present Illness Primary Care Provider: 82-year-old female with no known past medical history presents with fall and subsequent right hip pain Patient was vacuuming the floor this afternoon morning, turned and accidentally slipped and her right side. She denies hitting her head any other part of her body in the foot. After that patient severe pain of the right hip, prompting consult to the ER. Patient was found to have a right femoral neck fracture. Hospitalist consulted for admission On exam patient seen resting in bed, but no distress, reports 8 out of 10 pain on her right hip. Denies any other pain reported. Denies chest pain, shortness of breath, palpitations, dizziness. She takes no medications. Able to climb up 13 steps multiple times a day with no unusual shortness of breath, chest pain or dizziness. She is a very active 82-year-old female. Allergies Allergy/AdvReac Type Severity Reaction Status Date / Time Cipro Allergy Unknown STOMACH Verified 04/26/17 21:15 PAINS ciprofloxacin Allergy Unknown STOMACH Verified 06/17/18 12:55 PAINS metronidazole Allergy Unknown STOMACH/DIGESTIVE Verified 06/17/18 12:55 PAIN NSAIDS (Non-Steroidal Allergy Unknown STOMACH Verified 06/17/18 12:55 Anti-Inflamma PAIN Sulfa (Sulfonamide Allergy Unknown SEVERE Verified 06/17/18 12:55 Antibiotics) STOMACH PAINS Home Medications Home Medications Medication Instructions Recorded Confirmed Type No Known Home Medications 06/17/18 06/17/18 History Past Med/Surg History Medical History Costochondritis (Chronic) Family History Other Family history non-contributory Social History marital status: Current Living Situation: Spouse Other Information That Helps Us Care for You: No Feels Safe at Home: Yes Safety Concerns: Feels Safe At This Time Smoking Status: Never smoker Do You Dip or Chew Tobacco: No Second Hand Exposure: No Tobacco Cessation Education Requested by Patient: No Hx Alcohol Use: No Hx Substance Use: No Beliefs That Will Affect Care: None Preferred Language: [place] Communication Ability: Effective Crime Data Specialist Required: No Review of Systems Laboratory Results - last 24 hr 06/17/18 06/17/18 06/17/18 13:35 13:35 13:35 WBC 11.63 H RBC 3.65 L Hgb 12.4 Hct 37.3 MCV 102.2 H MCH 34.0 MCHC 33.2 RDW Std Deviation 53.2 H RDW Coeff of Alicia 14.3 Plt Count 214 MPV 9.4 Immature Gran % (Auto) 0.3 Neut % (Auto) 83.0 Lymph % (Auto) 7.1 [place] % (Auto) 9.4 Eos % (Auto) 0.0 Baso % (Auto) 0.2 Immature Gran # (Auto) 0.04 H Neut # (Auto) 9.66 H Lymph # (Auto) 0.82 L [place] # (Auto) 1.09 H Eos # (Auto) 0.00 Baso # (Auto) 0.02 PT 10.9 INR 1.1 APTT 25.9 PTT Ratio 1.0 Sodium 135 L Potassium 3.4 L Chloride 100 Carbon Dioxide 27 Anion Gap 8.0 BUN 16 Creatinine 0.63 Est Cr Clr Drug Dosing 54.5 Est GFR ( Amer) 96.8 Est GFR (Non-Af Amer) 83.5 BUN/Creatinine Ratio 25.8 H Glucose 103 H Calcium 8.7 Magnesium 1.7 L Total Bilirubin 1.2 H Direct Bilirubin 0.2 AST 20 ALT 26 Alkaline Phosphatase 92 Troponin I < 0.015 Total Protein 7.1 Albumin 3.7 Blood Type Antibody Screen 06/17/18 13:50 WBC RBC Hgb Hct MCV MCH MCHC RDW Std Deviation RDW Coeff of Alicia Plt Count MPV Immature Gran % (Auto) Neut % (Auto) Lymph % (Auto) [place] % (Auto) Eos % (Auto) Baso % (Auto) Immature Gran # (Auto) Neut # (Auto) Lymph # (Auto) [place] # (Auto) Eos # (Auto) Baso # (Auto) PT INR APTT PTT Ratio Sodium Potassium Chloride Carbon Dioxide Anion Gap BUN Creatinine Est Cr Clr Drug Dosing Est GFR ( Amer) Est GFR (Non-Af Amer) BUN/Creatinine Ratio Glucose Calcium Magnesium Total Bilirubin Direct Bilirubin AST ALT Alkaline Phosphatase Troponin I Total Protein Albumin Blood Type A Negative Antibody Screen NEGATIVE Constitutional- no fever; no weight loss Eyes- no acute visual changes ENT- no sinus drainage; no pharyngitis Pulmonary- no cough, no wheezing, no shortness of breath Cardiac- no chest pain, no palpitations, no orthopnea, no dependent edema GI- no nausea, no vomiting, no diarrhea, no melena, no hematochezia - no dysuria, no hematuria Musculoskeletal- (+) as noted above Derm- no rashes, no new skin lesions, no changing skin lesions Hematologic- no unusual bruising, no unusual bleeding Lymphatics- no adenopathy Endocrine- no polyuria or polydipsia; no heat or cold intolerance Neuro- no headaches, no focal neurologic symptoms Psych- no anxiety, no depression Physical Exam 2 Vital Signs (Past 24 Hours): Last Vital Signs Temp 36.5 C 06/17/18 16:44 Pulse 93 H 06/17/18 16:44 Resp 17 06/17/18 16:44 BP 109/72 06/17/18 16:44 Pulse Ox 96 06/17/18 16:44 Physical Exam: General- oriented x 3, not in distress, speaks in sentences with no effort or accessory muscle use Head- atraumatic Eyes- PERRL, EOMI, anicteric ENT- oropharynx clear Neck- supple, no JVD, no adenopathy, no thyromegaly; carotids +2/2, no bruits appreciated Lungs- clear to auscultation bilaterally, no rales/wheezes Heart- normal rate, regular rhythm; no murmur, no gallop, no rub appreciated Abdomen- normal bowel sounds, nondistended, soft, nontender, no masses or hepatosplenomegaly Extremities- no hematoma/erythema/edema on the right leg, mild tenderness to palpitation of the lateral aspect of the left upper leg no pretibial edema, no calf tenderness; peripheral pulses intact Neuro- alert, oriented x 3; CN 2-12 grossly intact; motor 5/5 bilaterally; sensation 100% on all extremities; no other gross focal neurologic deficits Skin- warm & dry Results & Data Laboratory Results Laboratory Results - last 24 hr 06/17/18 06/17/18 06/17/18 13:35 13:35 13:35 WBC 11.63 H RBC 3.65 L Hgb 12.4 Hct 37.3 MCV 102.2 H MCH 34.0 MCHC 33.2 RDW Std Deviation 53.2 H RDW Coeff of Alicia 14.3 Plt Count 214 MPV 9.4 Immature Gran % (Auto) 0.3 Neut % (Auto) 83.0 Lymph % (Auto) 7.1 [place] % (Auto) 9.4 Eos % (Auto) 0.0 Baso % (Auto) 0.2 Immature Gran # (Auto) 0.04 H Neut # (Auto) 9.66 H Lymph # (Auto) 0.82 L [place] # (Auto) 1.09 H Eos # (Auto) 0.00 Baso # (Auto) 0.02 PT 10.9 INR 1.1 APTT 25.9 PTT Ratio 1.0 Sodium 135 L Potassium 3.4 L Chloride 100 Carbon Dioxide 27 Anion Gap 8.0 BUN 16 Creatinine 0.63 Est Cr Clr Drug Dosing 54.5 Est GFR ( Amer) 96.8 Est GFR (Non-Af Amer) 83.5 BUN/Creatinine Ratio 25.8 H Glucose 103 H Calcium 8.7 Magnesium 1.7 L Total Bilirubin 1.2 H Direct Bilirubin 0.2 AST 20 ALT 26 Alkaline Phosphatase 92 Troponin I < 0.015 Total Protein 7.1 Albumin 3.7 Blood Type Antibody Screen 06/17/18 13:50 WBC RBC Hgb Hct MCV MCH MCHC RDW Std Deviation RDW Coeff of Alicia Plt Count MPV Immature Gran % (Auto) Neut % (Auto) Lymph % (Auto) [place] % (Auto) Eos % (Auto) Baso % (Auto) Immature Gran # (Auto) Neut # (Auto) Lymph # (Auto) [place] # (Auto) Eos # (Auto) Baso # (Auto) PT INR APTT PTT Ratio Sodium Potassium Chloride Carbon Dioxide Anion Gap BUN Creatinine Est Cr Clr Drug Dosing Est GFR ( Amer) Est GFR (Non-Af Amer) BUN/Creatinine Ratio Glucose Calcium Magnesium Total Bilirubin Direct Bilirubin AST ALT Alkaline Phosphatase Troponin I Total Protein Albumin Blood Type A Negative Antibody Screen NEGATIVE Diagnostic Findings xrays noted and reviewed Code Status & VTE Plan Code Status Full Code _ (1) Hip fracture Encounter type: initial encounter Fracture healing: Fracture type: closed Laterality: right Open fracture type: Qualified Code(s): S72.001A - Fracture of unspecified part of neck of right femur, initial encounter for closed fracture
[2018-06-17] MEDS ORDERED: BISACODYL 10 MG SUPP PR PRN (19:00)
[2018-06-17] MEDS ORDERED: SOD PHOSPHATE/SOD BIPHOSPHATE ENEMA 132 ML BTL PR PRN (19:00)
[2018-06-17] MEDS ORDERED: NALOXONE HCL 0.4 MG/1 ML VIAL/CARP IV PRN (19:00)
[2018-06-17] MEDS ORDERED: MAGNESIUM HYDROXIDE SUSP 30 ML UDC PO PRN (19:00)
[2018-06-17 19:42] LABS: Appearance Urine Clear (Clear); Bacteria Urine Automated Negative (Negative); Bilirubin Urine Negative (Negative); Color Urine Yellow; Glucose Urine UA Negative (Negative); Ketones Urine 2+ (Negative); Leukocyte Esterase Urine Negative (Negative); Nitrite Urine Negative (Negative); Protein Urine Negative (Negative); Specific Gravity Urine 1.015 (1.000-1.030); Urobilinogen Urine Negative (Negative)
--- NOTE | 2018-06-17 19:54 | Anesthesiology Consultation ---
Date of Service June 17, 2018 Assessment & Plan (1) Encounter for pre-operative examination: Chart Review Chart Review: Acceptable Risk for Surgery and Patient NOT seen in Pre Admission Testing Consults Requested none medicine team stated no contraindication for surgery. History Height/Weight Height: 5 ft 2 in Weight: 53.7 kg Allergies Allergy/AdvReac Type Severity Reaction Status Date / Time Cipro Allergy Unknown STOMACH Verified 04/26/17 21:15 PAINS ciprofloxacin Allergy Unknown STOMACH Verified 06/17/18 12:55 PAINS metronidazole Allergy Unknown STOMACH/DIGESTIVE Verified 06/17/18 12:55 PAIN NSAIDS (Non-Steroidal Allergy Unknown STOMACH Verified 06/17/18 12:55 Anti-Inflamma PAIN Sulfa (Sulfonamide Allergy Unknown SEVERE Verified 06/17/18 12:55 Antibiotics) STOMACH PAINS Medications Home Medications Medication Instructions Recorded Confirmed Last Taken No Known Home Medications 06/17/18 06/17/18 Unknown Active Medications Generic Name Dose Route Start Last Admin Trade Name Freq PRN Reason Stop Dose Admin Acetaminophen 65 mls @ 200 mls/hr 06/17/18 16:00 06/17/18 16:00 Ofirmev IV 07/17/18 15:59 Infused Q8H IRENE Infusion Potassium Chloride/Sodium Chloride 20 meq in 1,000 mls @ 60 mls/hr 06/17/18 17 :00 06/17/18 18:16 Normal Saline W/20 Meq Kcl IV 07/17/18 16:59 60 mls/hr .[id number] IRENE Administration Lidocaine 1 patch 06/17/18 15:30 06/17/18 17:27 Lidoderm 5% TD 07/17/18 15:29 1 patch QAM IRENE Administration Past Medical History Medical History Costochondritis (Chronic) potassium and magnesium being replaced Past Family History Family History Other Family history non-contributory Past Surgical History Surgical History H/O hernia repair History of hysterectomy Social History Smoking Status: Never smoker Do You Dip or Chew Tobacco: No Hx Alcohol Use: No Hx Substance Use: No Exercise / Class Metabolic Activity II 4-5 Yardwork/Stairs/Walk up hill Physical Exam Vital Signs Last Vital Signs Temp 36.5 C 06/17/18 16:44 Pulse 93 H 06/17/18 16:44 Resp 17 06/17/18 16:44 BP 109/72 06/17/18 16:44 Pulse Ox 96 06/17/18 16:44 Testing Electrocardiogram Date: 06/17/18 Findings: + NSR @ (93) pvc Chest X-Ray Date: 06/17/18 Findings: + NAD Laboratory Results 06/17/18 13:35 06/17/18 13:35 Blood Type A Negative 06/17/18 13:50 Antibody Screen NEGATIVE 06/17/18 13:50 PT 10.9 Seconds (9.0-12.0) 06/17/18 13:35 INR 1.1 (0.9-1.1) 06/17/18 13:35 APTT 25.9 Seconds (21.0-31.0) 06/17/18 13:35 Urine Color Yellow 06/17/18 11:20 Urine Appearance Clear (Clear) 06/17/18 11:20 Urine pH 8.0 (4.5-7.5) H 06/17/18 11:20 Ur Specific Melbeta 1.015 (1.000-1.030) 06/17/18 11:20 Urine Protein Negative (Negative) 06/17/18 11:20 Urine Glucose (UA) Negative (Negative) 06/17/18 11:20 Urine Ketones 2+ (Negative) H 06/17/18 11:20 Urine Nitrite Negative (Negative) 06/17/18 11:20 Ur Leukocyte Esterase Negative (Negative) 06/17/18 11:20 Urine WBC (Auto) 1-5 /hpf (0-5) 06/17/18 11:20 Urine RBC (Auto) 5-10 /hpf (0-4) H 06/17/18 11:20 U Hyaline Cast (Auto) 1-5 /lpf (0-5) 06/17/18 11:20 U Epithel Cells (Auto) 10-20 /lpf (0-5) H 06/17/18 11:20 Urine Bacteria (Auto) Negative (Negative) 06/17/18 11:20
[2018-06-17] MEDS ORDERED: ACETAMINOPHEN 325 MG TAB PO PRN (20:29)
[2018-06-17] MEDS ORDERED: MAGNESIUM SULFATE / D5W 1 GM/100 ML BAG IV ONE (21:00)
[2018-06-17] MEDS: MoRPHine SULFATE 4 MG/ML 1 ML CARP\\VIAL IV PRN (21:54)
[2018-06-18] MEDS: ACETAMINOPHEN 65 ML IV SCH ×3 (00:29→17:31)
[2018-06-18] MEDS: MoRPHine SULFATE 4 MG/ML 1 ML CARP\\VIAL IV PRN ×3 (03:43→22:04)
[2018-06-18] MEDS ORDERED: BUPIVACAINE 0.5 % 5 MG/1 ML PF 10ML VIAL ONE (06:35)
[2018-06-18 06:54] LABS: BUN Creatinine Ratio 19.3 (10-20); Calcium 8.1 mg/dl (8.5-10.1); Creatinine Clr Calc Pharmacy 63.5 ml/min; Est GFR (African American) 101.9; Est GFR (Non-African American) 87.9
--- NOTE | 2018-06-18 08:59 | Progress Note ---
DATE: 06/18/2018 SUBJECTIVE: An 82-year-old female admitted yesterday afternoon with a valgus impacted femoral neck fracture. No new complaints today. Hip is a bit more sore. No chest pain or shortness of breath. Not feeling dizzy or lightheaded. OBJECTIVE: VITAL SIGNS: Temperature 36.7. Vital signs stable. GENERAL: Reveals a pleasant elderly female. She is lying in bed, looks pretty comfortable. EXTREMITIES: Examination of the right hip and leg reveals no significant deformity. She has pain with any type of motion. Cannot do a straight leg raise anymore. She is neurologically intact. ASSESSMENT: An 82-year-old healthy female with a valgus impacted femoral neck fracture. PLAN: We will plan on taking her to the Operating Room this afternoon for cannulated screw fixation. We will continue DVT prophylaxis including TEDs and SCDs. DISPOSITION: Will be pending her recovery in rehab.
[2018-06-18] MEDS: LIDOCAINE 5% 1 PATCH TD SCH (09:03)
[2018-06-18] MEDS: NSS + 20MEQ KCL 20 MEQ/1,000 ML BAG IV SCH ×2 (09:16→11:20)
[2018-06-18] MEDS ORDERED: fentaNYL citrate 100 MCG/2 ML VIAL ONE (10:34)
[2018-06-18] MEDS ORDERED: BUPIVACAINE/EPINEPHRINE 0.5% MPF 1:200,000 30 ML VIAL ONE (10:58)
--- NOTE | 2018-06-18 11:36 | Hospitalist Progress Note ---
Date of Service June 18, 2018 Assessment & Plan (1) Hip fracture: Right Hip xray: IMPRESSION: Mildly impacted subcapital right femoral neck fracture. Discussed with Dr. Bradford Plan for screw fixation of the fracture today Patient has no known medical comorbidities, very good functional status No medical contraindication to proceed with surgery Patient is low to moderate risk for cardiopulmonary complications perioperatively in light of advanced age Hip fracture order set completed IV fluids ordered Ofirmev q8h Morphine 2mg q3h (2) Hypokalemia: Replaced resolved (3) Hypomagnesemia: Replace with IV magnesium resolved (4) DVT prophylaxis: SCDs for now Lovenox post surgery (5) Discharge planning issues: Anticipate discharge to rehab once cleared by Orth O post surgery Subjective ff up for right hip fracture seen resting in bed, patient's visiting comfortable, not in distress states she feels fine overall hip pain well controlled denies dyspnea, chest pain, palpitations no other symptoms Physical Exam 2 Vital Signs (Past 24 Hours): Last Vital Signs Temp 36.7 C 06/18/18 07:08 Pulse 77 06/18/18 07:08 Resp 18 06/18/18 07:08 BP 115/58 L 06/18/18 07:08 Pulse Ox 97 06/18/18 07:08 Physical Exam: General- oriented x 3, not in distress, speaks in sentences with no effort or accessory muscle use Eyes- anicteric Neck- no JVD Lungs- clear breath sounds bilaterally Heart- normal rate, regular rhythm; no murmurs Abdomen- normal bowel sounds, nondistended, soft, nontender Extremities- no pretibial edema, no calf tenderness Neuro- alert, oriented x 3; no gross focal neurologic deficits Skin- warm & dry Results & Data Laboratory Results Laboratory Results - last 24 hr 06/18/18 06/18/18 05:31 05:31 Sodium 132 L Potassium 4.0 D Chloride 101 Carbon Dioxide 25 Anion Gap 6.0 BUN 10 D Creatinine 0.54 L Est Cr Clr Drug Dosing 63.5 Est GFR ( Amer) 101.9 Est GFR (Non-Af Amer) 87.9 BUN/Creatinine Ratio 19.3 Glucose 85 Calcium 8.1 L Magnesium 2.2 _ (1) Hip fracture Encounter type: initial encounter Fracture healing: Fracture type: closed Laterality: right Open fracture type: Qualified Code(s): S72.001A - Fracture of unspecified part of neck of right femur, initial encounter for closed fracture
[2018-06-18] MEDS ORDERED: ePHEDrine sulfate 50 MG/ML AMP IV PRN (13:10)
[2018-06-18] MEDS ORDERED: ATROPINE SULFATE 0.1 MG/ML 10ML SYR IV PRN (13:10)
[2018-06-18] MEDS ORDERED: ONDANSETRON INJ 2 MG/ML 2 ML VIAL IV PRN (13:10)
[2018-06-18] MEDS ORDERED: fentaNYL citrate 100 MCG/2 ML VIAL IV PRN (13:10)
[2018-06-18] MEDS ORDERED: HYDROmorphone INJ 1 MG/ML SYRINGE IV PRN (13:10)
--- NOTE | 2018-06-18 13:24 | History & Physical Bridge Note ---
Date of Service June 18, 2018 History & Physical Bridge Note I have examined the patient, reviewed the History & Physical and in the interval since the performance of the History & Physical I have noted the following changes of clinical significance: no changes noted
[2018-06-18] MEDS ORDERED: PHENYLEPHRINE 100MCG/ML 5ML SYR ONE (14:10)
[2018-06-18] MEDS ORDERED: PROPOFOL IV EMULSION 10 MG/ML 20 ML VIAL IV ONE ×2 (14:10→14:22)
[2018-06-18] MEDS ORDERED: CEFAZOLIN 250 MG/ML 1 GM VIAL ONE (14:10)
[2018-06-18] MEDS ORDERED: ONDANSETRON INJ 2 MG/ML 2 ML VIAL ONE (14:10)
[2018-06-18] MEDS ORDERED: LIDOCAINE HCL 2% 2 ML VIAL/AMP(20MG/ML) INFIL ONE (14:10)
[2018-06-18] MEDS ORDERED: CEFAZOLIN 1000MG 1,000 MG/7.5 ML SYR IV SCH (14:18)
--- NOTE | 2018-06-18 14:43 | Post Operative Brief Note ---
Immediate Post Op Note v1 Date of Surgery June 18, 2018 Pre & Post Diagnosis Operation Date: 06/18/18 07:50 Pre-Op Diagnosis: RIGHT HIP FRACTURE Post-Op Diagnosis: RIGHT HIP FRACTURE Procedure Operation Date: 06/18/18 07:50 Actual Procedures p Right Hip Cannulated Screws(Right) - Dany Bradford MD Surgeon Dany Bradford MD Sourcing Internship None Estimated Blood Loss 30 Findings Consistent with Post-Op Diagnosis Fluids 1000 cc Anesthesia Type Spinal MAC Complications none Disposition Accompanied Patient To Recovery: Yes
--- NOTE | 2018-06-18 14:44 | Fluoroscopy Report ---
FL hip RT 2-3V CLINICAL HISTORY: CANNULATED SCREWS-R HIP COMPARISON STUDY: Right hip and pelvis radiograph June 17, 2018. FLUOROSCOPY TIME: 63 seconds. FLUOROSCOPIC IMAGES: 2 FINDINGS: These images demonstrate placement of 3 cannulated screws which fixate the subcapital right femoral neck fracture. Alignment appears anatomic. Hardware is intact. There are no unexpected radio paque foreign bodies. IMPRESSION: Expected findings following internal fixation of the right femoral neck fracture. Electronically signed by: Regis Brush M.D. 06/18/2018 2:43 PM
--- NOTE | 2018-06-18 15:12 | Anesthesiology Progress Note ---
Date of Service June 18, 2018 Anesthesia Post Procedure Vital Signs Vital Signs: Temp Pulse Pulse Pulse Resp BP BP 06/18/18 15:05 86 13 115/60 06/18/18 14:55 96 H 19 114/58 L 06/18/18 14:45 36.3 C L 97 H 18 101/69 06/18/18 11:55 36.8 C 90 18 117/77 06/18/18 07:08 36.7 C 77 18 115/58 L 06/18/18 00:15 06/17/18 23:06 37 C 84 18 146/84 H 06/17/18 16:44 36.5 C 93 H 17 109/72 06/17/18 16:03 92 H 20 Pulse Ox Pulse Ox 06/18/18 15:05 99 06/18/18 14:55 98 06/18/18 14:45 100 06/18/18 11:55 99 06/18/18 07:08 97 06/18/18 00:15 93 06/17/18 23:06 93 06/17/18 16:44 96 06/17/18 16:03 96 Pain Intensity Right Hip: Pain Intensity: 0 Notes Mental Status: alert / awake / arousable and participated in evaluation Nausea / Vomiting: adequately controlled Pain: adequately controlled Airway Patency, RR, SpO2: stable & adequate BP & HR: stable & adequate Hydration State: stable & adequate Neuraxial Anesthesia: was administered and sensory block is resolving Anesthetic Complications: no major complications apparent and Pt Satisfied with anesthetic care
[2018-06-18] MEDS ORDERED: ALUMINUM/MAGNESIUM SUSP 30 ML UDC PO PRN (15:49)
[2018-06-18] MEDS ORDERED: BISACODYL 10 MG SUPP PR PRN (15:49)
[2018-06-18] MEDS ORDERED: METOCLOPRAMIDE HCL INJ 5 MG/ML 2 ML VIAL IV PRN (15:49)
[2018-06-18] MEDS ORDERED: NALOXONE HCL 0.4 MG/1 ML VIAL/CARP IV PRN (15:49)
[2018-06-18] MEDS ORDERED: MAGNESIUM HYDROXIDE SUSP 30 ML UDC PO PRN (15:49)
[2018-06-18] MEDS ORDERED: TRAMADOL HCL 50 MG TABLET PO PRN (15:49)
[2018-06-18] MEDS: D5NSS + 20MEQ KCL 20 MEQ/1,000 ML BAG IV SCH (16:43)
[2018-06-18] MEDS: ONDANSETRON INJ 2 MG/ML 2 ML VIAL IV PRN (16:45)
[2018-06-18] MEDS: SODIUM CHLORIDE 0.9% 1000ML 1,000 ML IV SCH (16:47)
[2018-06-18] MEDS: KETOROLAC TROMETHAMINE 15 MG/ML VIAL IV SCH (19:02)
--- NOTE | 2018-06-18 19:37 | Operative Report ---
DATE OF OPERATION: 06/18/2018 SURGEON: Dany Bradford MD IRONWORKER MACHINE OPERATOR: None. PREOPERATIVE DIAGNOSIS: Right valgus impacted femoral neck fracture. POSTOPERATIVE DIAGNOSIS: Right valgus impacted femoral neck fracture. PROCEDURE PERFORMED: Cannulated screw fixation of a valgus impacted femoral neck fracture. COMPLICATIONS: None. ESTIMATED BLOOD LOSS: 30 mL. FLUID REPLACEMENT: 1000 mL crystalloid fluid replacement. ANESTHESIA: Spinal. DRAINS: None. SPECIMENS: None. OPERATIVE INDICATIONS: Patient is an 82-year-old very active female who sustained a fall yesterday. She was vacuuming under her couch and then transitioned to a hardwood floor, slipped and fell. She had acute onset of pain. She was brought to the Emergency Room where x-rays showed valgus impacted femoral neck fracture. Patient was admitted by the medicine service, medically optimized, and indicated for surgical fixation. OPERATIVE IMPLANTS: Consisted of 6.5 partially threaded long threaded cannulated screws x3, 1 of 90 mm length, 2 of 80 mm length, and 1 with a washer. These were [employer]ynthe[employer] cannulated stainless steel screws. OPERATIVE PROCEDURE: Patient was taken to the operating room, identified and placed on the operative room table in supine position. All contact areas were appropriately padded. IV antibiotics provided by anesthesia team. A spinal anesthetic was implemented. Patient was then transferred to the fracture table. The right leg was placed in boot traction, and the left leg was placed in a well leg lobato. I applied some longitudinal traction to the right leg and internally rotated the foot so that kneecap pointed to the ceiling. X-ray was brought in. The fracture was anatomically reduced with some slight impaction. The right hip and leg were then prepped and draped in the usual sterile fashion. A direct lateral approach to the proximal femur was then performed through a longitudinal incision of about 4-5 cm in length. Sharp dissection was carried down through the subcutaneous tissues down to the level of the IT band. The IT band was incised longitudinally. The vastus lateralis was elevated anteriorly, and an incision was made in the vastus lateralis. The lateral femur was exposed. A guidewire was placed in the inferior aspect of the femoral neck and then the mid aspect of the femoral neck on the AP plane. Once this position was verified, I placed 2 additional wires, 1 posterior and superior, 1 anterior and superior. The position of these wires was verified. Once this was complete, I placed a single long threaded cannulated screw over the inferior guidewire. I placed a partially threaded cannulated screw with a washer over the posterior superior guidewire and a single cannulated screw over the anterior superior guidewire. I tightened these down. There was excellent fixation. The screws were just a little short, but I felt 5 mm long would put them in jeopardy of the articular surface. We elected to accept the screw lengths. Some final pictures were obtained. I irrigated the wound extensively. I injected locally with 30 mL of 0.5% Marcaine with epinephrine. The IT band was then closed with #1 Vicryl suture in running fashion. The subcutaneous tissue was then closed with 2 layers, the deep layer with #1 Vicryl suture, and subcutaneous tissues with 2-0 Dexon suture in a buried interrupted fashion. Skin was then closed with skin pj. Leg was then cleaned and dried and a sterile dressing of Xeroform, 4x4s, sterile ABD pad, and foam tape was applied. The patient was then transferred to the recovery room in stable condition. The patient tolerated the procedure well with no complication. All needle and sponge counts were correct at the end of the operation. I attest to the content of the Intraoperative Record and any orders documented therein. Any exceptions are noted below. LUIZ
[2018-06-18] MEDS: SENNA 8.6 MG TAB PO SCH (20:13)
[2018-06-18] MEDS: DOCUSATE SODIUM 100 MG CAP PO SCH (20:13)
[2018-06-18] MEDS: ASPIRIN 81 MG ECTAB PO SCH (20:14)
[2018-06-18] MEDS: CEFAZOLIN 1000MG 1,000 MG/7.5 ML SYR IV SCH (22:05)
[2018-06-19] MEDS: ACETAMINOPHEN 65 ML IV SCH ×3 (00:05→16:47)
[2018-06-19] MEDS: KETOROLAC TROMETHAMINE 15 MG/ML VIAL IV SCH ×4 (00:06→17:57)
[2018-06-19] MEDS: SODIUM CHLORIDE 0.9% 1000ML 1,000 ML IV SCH (05:47)
[2018-06-19] MEDS: CEFAZOLIN 1000MG 1,000 MG/7.5 ML SYR IV SCH (05:49)
[2018-06-19 07:17] LABS: Basophils # (auto) 0.03 K/uL (0-0.2); Basophils % (auto) 0.4 %; Eosinophils # (auto) 0.12 K/uL (0-0.5); Eosinophils % (auto) 1.6 %; Hematocrit (blood only) 34.1 % (37-47); Hemoglobin 11.6 g/dL (12.0-16.0); Immature Granulocytes # (auto) 0.01 K/uL (0.00-0.02); Immature Granulocytes % (auto) 0.1 %; Lymphocytes # (auto) 0.93 K/uL (1.2-3.4); Lymphocytes % (auto) 12.1 %; Mean Corpuscular Volume 102.4 fL (80-100); Mean Platelet Volume 9.2 fL (7.4-10.4); Monocytes # (auto) 1.22 K/uL (0.11-0.59); Monocytes % (auto) 15.9 %; Neutrophils # (auto) 5.36 K/uL (1.4-6.5); Neutrophils % (auto) 69.9 %; Platelet Count 171 K/uL (130-400); RDW Coefficient of Variation 14.3 % (11.5-14.5); RDW Standard Deviation 53.4 fL (36.4-46.3); Red Blood Count 3.33 M/uL (4.2-5.4); White Blood Count 7.67 K/uL (4.8-10.8)
[2018-06-19 07:55] LABS: BUN Creatinine Ratio 12.7 (10-20); Calcium 8.2 mg/dl (8.5-10.1); Creatinine Clr Calc Pharmacy 48.3 ml/min; Est GFR (African American) 91.9; Est GFR (Non-African American) 79.3; Potassium 3.9 mmol/L (3.5-5.1)
--- NOTE | 2018-06-19 08:18 | Anesthesiology Progress Note ---
Date of Service June 19, 2018 Anesthesia Post Procedure Vital Signs Vital Signs: Temp Pulse Pulse Pulse Resp BP BP 06/19/18 07:25 36.6 C 80 14 111/68 06/19/18 06:47 06/19/18 03:16 36.7 C 87 16 113/68 06/18/18 23:30 06/18/18 22:58 36.3 C L 88 16 126/68 06/18/18 18:49 36.6 C 80 18 105/60 06/18/18 17:48 37.5 C 90 18 121/70 06/18/18 16:41 36.4 C L 83 20 100/63 06/18/18 16:15 89 20 123/54 L 06/18/18 15:45 36.4 C L 18 117/72 06/18/18 15:35 87 14 120/55 L 06/18/18 15:25 91 H 12 123/52 L 06/18/18 15:15 36.3 C L 97 H 15 122/64 06/18/18 15:05 86 13 115/60 06/18/18 14:55 96 H 19 114/58 L 06/18/18 14:45 36.3 C L 97 H 18 101/69 06/18/18 11:55 36.8 C 90 18 117/77 Pulse Ox Pulse Ox 06/19/18 07:25 96 06/19/18 06:47 95 06/19/18 03:16 95 06/18/18 23:30 93 06/18/18 22:58 93 06/18/18 18:49 94 06/18/18 17:48 96 06/18/18 16:41 98 06/18/18 16:15 96 06/18/18 15:45 97 06/18/18 15:35 99 06/18/18 15:25 99 06/18/18 15:15 99 06/18/18 15:05 99 06/18/18 14:55 98 06/18/18 14:45 100 06/18/18 11:55 99 Pain Intensity Right Hip: Pain Intensity: 2 Notes Mental Status: alert / awake / arousable and participated in evaluation Patient Amnestic to Procedure: Yes Nausea / Vomiting: adequately controlled Pain: adequately controlled Airway Patency, RR, SpO2: stable & adequate BP & HR: stable & adequate Hydration State: stable & adequate Neuraxial Anesthesia: was administered and sensory block resolved Anesthetic Complications: no major complications apparent
[2018-06-19] MEDS: D5NSS + 20MEQ KCL 20 MEQ/1,000 ML BAG IV SCH (08:19)
[2018-06-19] MEDS: MULTIVITAMIN TAB PO SCH (08:29)
[2018-06-19] MEDS: ASPIRIN 81 MG ECTAB PO SCH ×2 (08:30→21:31)
[2018-06-19] MEDS: DOCUSATE SODIUM 100 MG CAP PO SCH ×2 (08:30→21:30)
[2018-06-19] MEDS: LIDOCAINE 5% 1 PATCH TD SCH (08:33)
--- NOTE | 2018-06-19 13:45 | Progress Note ---
DATE: 06/19/2018 SUBJECTIVE: An 82-year-old white female postop day 1 from cannulated screw fixation of valgus impacted femoral neck fracture. She is doing quite well. She got up and walked some. She has been partial weightbearing. No chest pain or shortness of breath. Not feeling dizzy or lightheaded. Pain is controlled. OBJECTIVE: VITAL SIGNS: Temperature 36.6. Vital signs stable. GENERAL: Physical examination reveals a healthy, pleasant middle-aged female. She is sitting up at her bedside chair, eating lunch. EXTREMITIES: Examination of the right hip reveals the dressing to be clean, dry and intact. Thigh is soft and supple. Leg lengths were equal. Minimal pain with hip motion. She is neurologically intact. LABORATORY DATA: Hemoglobin 11.6. Hematocrit 34.1. Electrolytes are stable. ASSESSMENT: An 82-year-old white female postop day 1 from a cannulated screw fixation of valgus impacted femoral neck fracture. She is doing well. Her pain is controlled. She is neurologically intact. PLAN: 1. DVT prophylaxis including thigh-high TEDs, SCDs, and we would recommend 81 mg aspirin twice a day. 2. PT/OT. She can be 50%/partial weightbear on the right leg for the next 6 weeks. 3. Medical management as per the medicine service. 4. Disposition: She is hoping to go to rehab. She is orthopedically stable and acceptable to go any time medically stable. I need to see her back 2 weeks from her surgery date. Any orthopedic questions can be directed to me at [phone]. Once again, she is 50%/partial weightbearing in the right leg for 6 weeks.
--- NOTE | 2018-06-19 14:21 | Hospitalist Progress Note ---
Date of Service June 19, 2018 Assessment & Plan (1) Hip fracture: Right Hip xray: IMPRESSION: Mildly impacted subcapital right femoral neck fracture. Discussed with Dr. Bradford Plan for screw fixation of the fracture today Patient has no known medical comorbidities, very good functional status No medical contraindication to proceed with surgery Patient is low to moderate risk for cardiopulmonary complications perioperatively in light of advanced age Hip fracture order set completed IV fluids ordered Ofirmev q8h Morphine 2mg q3h (2) Hypokalemia: Replaced resolved (3) Hypomagnesemia: Replace with IV magnesium resolved (4) DVT prophylaxis: SCDs for now Lovenox post surgery (5) Discharge planning issues: Anticipate discharge to rehab once cleared by Orth O post surgery Subjective ff up for right hip fracture seen resting in bed, patient's visiting comfortable, not in distress states she feels fine overall hip pain well controlled denies dyspnea, chest pain, palpitations no other symptoms Physical Exam 2 Vital Signs (Past 24 Hours): Last Vital Signs Temp 36.6 C 06/19/18 11:11 Pulse 87 06/19/18 11:11 Resp 15 06/19/18 11:11 BP 106/54 L 06/19/18 11:11 Pulse Ox 95 06/19/18 11:11 _ (1) Hip fracture Encounter type: initial encounter Fracture healing: Fracture type: closed Laterality: right Open fracture type: Qualified Code(s): S72.001A - Fracture of unspecified part of neck of right femur, initial encounter for closed fracture
[2018-06-19] MEDS: SENNA 8.6 MG TAB PO SCH (21:31)
[2018-06-20] MEDS: KETOROLAC TROMETHAMINE 15 MG/ML VIAL IV SCH ×3 (00:01→12:03)
[2018-06-20] MEDS: ONDANSETRON INJ 2 MG/ML 2 ML VIAL IV PRN (00:01)
[2018-06-20] MEDS: ACETAMINOPHEN 65 ML IV SCH ×2 (00:07→07:58)
[2018-06-20 07:56] LABS: BUN Creatinine Ratio 20.4 (10-20); Calcium 8.3 mg/dl (8.5-10.1); Creatinine Clr Calc Pharmacy 64.7 ml/min; Est GFR (African American) 102.5; Est GFR (Non-African American) 88.4; Potassium 3.6 mmol/L (3.5-5.1)
[2018-06-20] MEDS: ASPIRIN 81 MG ECTAB PO SCH (07:58)
[2018-06-20] MEDS: DOCUSATE SODIUM 100 MG CAP PO SCH (07:58)
[2018-06-20] MEDS: LIDOCAINE 5% 1 PATCH TD SCH (07:59)
[2018-06-20] MEDS: MULTIVITAMIN TAB PO SCH (07:59)
--- NOTE | 2018-06-20 13:49 | Hospitalist Progress Note ---
Date of Service June 20, 2018 Assessment & Plan (1) Hip fracture: 82-year-old white female postop day from cannulated screw fixation of valgus impacted femoral neck fracture, with initial fracture caused by fall 06/17/18 Right Hip xray: IMPRESSION: Mildly impacted subcapital right femoral neck fracture. PREOPERATIVE DIAGNOSIS: Right valgus impacted femoral neck fracture. DATE OF OPERATION: 06/18/2018 SURGEON: Dany Bradford MD PROCEDURE PERFORMED: Cannulated screw fixation of a valgus impacted femoral neck fracture. DVT prophylaxis as outpatient is 81 mg aspirin twice a day. Patient will be discharged with acceptance to [facility] to continue physical therapy to continue PT/OT. She can be 50%/partial weightbear on the right leg for the next 6 weeks. Patient instructed to follow with orthopedic clinic of Dr. Dany Bradford 2 weeks from the 06/18/18 surgery. Any orthopedic questions can be directed to Dr. Dany Bradford at [phone]. Patient also should follow up with her primary care doctor in 1 to 2 weeks Patient will be discharged with prescriptions for pain control medications of acetaminophen and tramadol. Patient also to be discharge with bowel regimen medications of sennakot and docusate to prevent constipation. Patient should take aspirin 81 mg twice a day to prevent blood clots (2) Hypokalemia: resolved (3) Hypomagnesemia: resolved (4) DVT prophylaxis: DVT prophylaxis as outpatient is 81 mg aspirin twice a day. (5) Discharge planning issues: Patient will be discharged with acceptance to [facility] to continue physical therapy to continue PT/OT. She can be 50%/partial weightbear on the right leg for the next 6 weeks. Discharge Diagnosis Closed right hip fracture requiring operative repair, hypokalemia (resolved), hypomagnesemia (resolved) Subjective sitting up in chair comfortable, not in distress states she feels fine overall hip pain well controlled denies dyspnea, chest pain, palpitations reports constipation no other symptoms Physical Exam 2 Vital Signs (Past 24 Hours): Last Vital Signs Temp 36.6 C 06/20/18 12:23 Pulse 89 06/20/18 12:23 Resp 16 06/20/18 12:23 BP 112/66 06/20/18 12:23 Pulse Ox 96 06/20/18 12:23 Constitutional: WD/WN, vitals as above Eyes: PERRL, conjunctivae normal, anicteric sclerae ENMT: external ear and nose normal, oropharynx normal Neck: trachea midline, no thyromegaly Respiratory: normal respiratory effort, lungs clear to auscultation Cardiovascular: RRR, no murmur, no edema Chest (Breasts): normal inspection/palpation of breasts Gastrointestinal (Abdomen): normal bowel sounds, soft, nontender, no hepatosplenomegaly Musculoskeletal: Head/Neck/Chest: normocephalic and head atraumatic Hip: + hip abnormal to inpsection (dressing over right hip) Neurologic: PERRL, EOMI, accommodation nl, no face palsy, no dysarthria CN' s II-XI intact bilaterally Psychiatric: A+Ox3, euthymic affect _ (1) Hip fracture Encounter type: initial encounter Fracture healing: Fracture type: closed Laterality: right Open fracture type: Qualified Code(s): S72.001A - Fracture of unspecified part of neck of right femur, initial encounter for closed fracture
--- NOTE | 2018-06-20 14:16 | Discharge Summary ---
Date of Service June 20, 2018 Admission HPI Per Admitting Provider Primary Care Provider: 82-year-old female with no known past medical history presents with fall and subsequent right hip pain Patient was vacuuming the floor this afternoon morning, turned and accidentally slipped and her right side. She denies hitting her head any other part of her body in the foot. After that patient severe pain of the right hip, prompting consult to the ER. Patient was found to have a right femoral neck fracture. Hospitalist consulted for admission On exam patient seen resting in bed, but no distress, reports 8 out of 10 pain on her right hip. Denies any other pain reported. Denies chest pain, shortness of breath, palpitations, dizziness. She takes no medications. Able to climb up 13 steps multiple times a day with no unusual shortness of breath, chest pain or dizziness. She is a very active 82-year-old female. Admission Exam Per Admitting Provider General- oriented x 3, not in distress, speaks in sentences with no effort or accessory muscle use Head- atraumatic Eyes- PERRL, EOMI, anicteric ENT- oropharynx clear Neck- supple, no JVD, no adenopathy, no thyromegaly; carotids +2/2, no bruits appreciated Lungs- clear to auscultation bilaterally, no rales/wheezes Heart- normal rate, regular rhythm; no murmur, no gallop, no rub appreciated Abdomen- normal bowel sounds, nondistended, soft, nontender, no masses or hepatosplenomegaly Extremities- no hematoma/erythema/edema on the right leg, mild tenderness to palpitation of the lateral aspect of the left upper leg no pretibial edema, no calf tenderness; peripheral pulses intact Neuro- alert, oriented x 3; CN 2-12 grossly intact; motor 5/5 bilaterally; sensation 100% on all extremities; no other gross focal neurologic deficits Skin- warm & dry Principal Diagnosis Closed right hip fracture requiring operative repair, hypokalemia (resolved), hypomagnesemia (resolved) Discharge Exam Constitutional WD/WN, vitals as above Eyes PERRL, conjunctivae normal, anicteric sclerae ENMT external ear and nose normal, oropharynx normal Neck trachea midline, no thyromegaly Respiratory normal respiratory effort, lungs clear to auscultation Cardiovascular RRR, no murmur, no edema Chest (Breasts) normal inspection/palpation of breasts Gastrointestinal (Abdomen) normal bowel sounds, soft, nontender, no hepatosplenomegaly Musculoskeletal Head/Neck/Chest: normocephalic and head atraumatic Hip: + hip abnormal to inpsection (dressing over right hip) Neurologic PERRL, EOMI, accommodation nl, no face palsy, no dysarthria CN's II-XI intact bilaterally Psychiatric A+Ox3, euthymic affect Discharge Data Allergies Allergy/AdvReac Type Severity Reaction Status Date / Time Cipro Allergy Unknown STOMACH Verified 04/26/17 21:15 PAINS ciprofloxacin AdvReac Unknown STOMACH Verified 06/18/18 13:24 PAINS metronidazole AdvReac Unknown STOMACH/DIGESTIVE Verified 06/18/18 13:24 PAIN NSAIDS (Non-Steroidal AdvReac Unknown STOMACH Verified 06/18/18 13:24 Anti-Inflamma PAIN Sulfa (Sulfonamide AdvReac Unknown SEVERE Verified 06/18/18 13:24 Antibiotics) STOMACH PAINS Consultations 06/17/18 13:08 Consult Case Management - Discharge Planning Routine 06/17/18 13:31 ED Decision to Admit Stat 06/17/18 15:08 Consult Orthopedic Surgery Stat 06/17/18 16:41 Consult Case Management - Discharge Planning Routine 06/17/18 19:01 Consult Anesthesiology Routine Consult Case Management - Discharge Planning Routine 06/19/18 08:00 Consult Case Management - Discharge Planning Routine Procedures Performed Operation Date: 06/18/18 07:50 Actual Procedures p Right Hip Cannulated Screws(Right) - Dany Bradford MD Ordered Studies 06/18/18 07:00 FL fluoroscopy <1hr Routine FL hip RT 2-3V Routine Hospital Course (1) Hip fracture: 82-year-old white female postop day from cannulated screw fixation of valgus impacted femoral neck fracture, with initial fracture caused by fall 06/17/18 Right Hip xray: IMPRESSION: Mildly impacted subcapital right femoral neck fracture. PREOPERATIVE DIAGNOSIS: Right valgus impacted femoral neck fracture. DATE OF OPERATION: 06/18/2018 SURGEON: Dany Bradford MD PROCEDURE PERFORMED: Cannulated screw fixation of a valgus impacted femoral neck fracture. DVT prophylaxis as outpatient is 81 mg aspirin twice a day. Patient will be discharged with acceptance to [facility] to continue physical therapy to continue PT/OT. She can be 50%/partial weightbear on the right leg for the next 6 weeks. Patient instructed to follow with orthopedic clinic of Dr. Dany Bradford 2 weeks from the 06/18/18 surgery. Any orthopedic questions can be directed to Dr. Dany Bradford at [phone]. Patient also should follow up with her primary care doctor in 1 to 2 weeks Patient will be discharged with prescriptions for pain control medications of acetaminophen and tramadol. Patient also to be discharge with bowel regimen medications of sennakot and docusate to prevent constipation. Patient should take aspirin 81 mg twice a day to prevent blood clots (2) Hypokalemia: resolved (3) Hypomagnesemia: resolved (4) DVT prophylaxis: DVT prophylaxis as outpatient is 81 mg aspirin twice a day. (5) Discharge planning issues: Patient will be discharged with acceptance to [facility] to continue physical therapy to continue PT/OT. She can be 50%/partial weightbear on the right leg for the next 6 weeks. Discharge Diagnosis Closed right hip fracture requiring operative repair, hypokalemia (resolved), hypomagnesemia (resolved) Total Time Total Time Spent Total Time Spent (In Minutes): 40 minutes Total Time Includes: Examination of the Patient, Discharge Planning and Medication Reconciliation Discharge Plan Discharge Items Patient Disposition: Transfer Inpatient Rehab Fac Reason For Visit: RIGHT HIP FRACTURE Discharge Diagnosis: Closed right hip fracture requiring operative repair, hypokalemia (resolved), hypomagnesemia (resolved) Condition: Good Discharge Goals: Improve function Activity: Per 'Additional Instructions' section Activity Comment: Partial weight-bearing on right leg for 6 weeks Weightbearing: Right partial Weightbearing Comment: Partial Weightbearing on right leg for 6 weeks Non-emergency contact: Primary Care Provider and Surgeon Call non-emergency contact if: you have any medication questions Follow-up/Referrals: Dany Bradford MD [Surgeon] - (Need follow-up appointment 2 weeks from surgery.) Addtl Provider Instructions: Patient will be discharged with acceptance to [facility] to continue physical therapy to continue PT/OT. She can be 50%/partial weightbear on the right leg for the next 6 weeks. Patient instructed to follow with orthopedic clinic of Dr. Dany Bradford 2 weeks from the 06/18/18 surgery. Any orthopedic questions can be directed to Dr. Dany Bradford at [phone]. Patient also should follow up with her primary care doctor in 1 to 2 weeks Patient will be discharged with prescriptions for pain control medications of acetaminophen and tramadol. Patient also to be discharge with bowel regimen medications of sennakot and docusate to prevent constipation. Patient should take aspirin 81 mg twice a day to prevent blood clots Prescriptions: New sennosides [Senokot] 8.6 mg Tablet 17.2 mg PO HS 30 Days Qty: 60 RF: 0 acetaminophen [Mapap (acetaminophen)] 325 mg Tablet 325 mg PO Q6H PRN (Reason: Pain) 5 Days Qty: 30 RF: 0 aspirin [Ecotrin Low Strength] 81 mg Tablet,Delayed Release (Dr/Ec) 81 mg PO BID 30 Days Qty: 60 RF: 0 tramadol 50 mg Tablet 50 mg PO Q4H PRN (Reason: Pain, Severe) 4 Days Qty: 24 RF: 0 docusate sodium 100 mg Capsule 100 mg PO BID 30 Days Qty: 60 RF: 0 Continue No Known Home Medications RF: 0 Stand-Alone Forms: [facility] Discharge Orders: Discharge Order (Routine); Ordered 06/20/18 Ordered By: Antonio Nash Skilled Items Patient informed of condition?: Yes DNR: No Discharge Level of Care: Acute rehab Communicable Disease: No Discharge Prognosis: Stable Admission Data Admit Date/Time: 06/17/18 15:08 Attending Provider: Antonio Nash Admit Provider: Kareem Esquivel Primary Care Provider: Familia Paris Other Providers: Kareem Esquivel ; Dany Bradford ; Nikos Biswas Service: Medical Other Interventions: Discharge Summary Assessment (RN) Last Done: 06/20/18 12:23 Pending Studies at Discharge: No
--- NOTE | 2018-06-20 14:20 | Progress Note ---
DATE: 06/20/2018 SUBJECTIVE: An 82-year-old white female postop day 2 from cannulated screw fixation of valgus impacted femoral neck fracture. She is doing pretty well. Quite a bit of pain last night, but much better this morning. The pain medicine seems to be helping. Therapy has gone reasonably well. No new complaints. OBJECTIVE: VITAL SIGNS: Temperature 36.6. Vital signs stable. GENERAL: Physical examination shows an elderly female. She is sitting in her bedside chair talking to her . She looks comfortable. EXTREMITIES: Examination of the right leg reveals the dressing to be clean, dry and intact. Thigh is soft and supple. Leg lengths are equal. She is neurologically intact. ASSESSMENT: An 82-year-old white female postop day 2 from cannulated screw fixation of valgus impacted femoral neck fracture. She is doing well. Pain is controlled. PLAN: 1. DVT prophylaxis including thigh-high TEDs, SCDs, and baby aspirin twice a day. 2. PT and OT. She is 50% weightbearing, right leg for the next 6 weeks. 3. Medical management as per the medicine service. 4. Disposition: She is hoping to go to rehab. We are just waiting for placement. She is orthopedically stable any time. I need to see her back 2 weeks out from surgery date. She is 50% weightbearing, right lower extremity for 6 weeks. Any orthopedic questions can be directed to me at [phone].
== END 2018-06-20 15:00 | DRG 482 ==
LOC: ED 12:33 → SUATTDRO 15:08 → 3N 15:08
DX: E83.42 Hypomagnesemia; Y93.E3 Activity, vacuuming; E87.6 Hypokalemia; W01.0XXA Fall on same level from slipping, tripping and stumbling without subsequent striking against object, initial encounter; Y92.009 Unspecified place in unspecified non-institutional (private) residence as the place of occurrence of the external cause; S72.011A Unspecified intracapsular fracture of right femur, initial encounter for closed fracture

== ENCOUNTER 2021-06-14 06:40 | Observation (INO) ==
--- NOTE | 2021-06-07 09:49 | PAT Medication Instructions ---
Medication Instructions Date of Service June 07, 2021 Home Medications lactobacillus combination no.4 3 billion cell capsule (Probiotic) 3,000 mmu cells PO QAM DO NOT take the morning of surgery lactobacillus combination no.4 3 billion cell capsule (Probiotic) 3,000 mmu cells PO QAM OTHERWISE NOTHING TO EAT OR DRINK AFTER MIDNIGHT Other Notes If you have any questions please call us at [phone] or [phone] or [phone] or [phone]
--- NOTE | 2021-06-07 11:21 | Anesthesiology Consultation ---
Date of Service June 07, 2021 Assessment & Plan (1) Encounter for pre-operative examination: - Pt request for LMA: Patient reports persistent hoarseness since hernia repair at [facility], requests LMA for upcoming surgery. Per Dr. Biswas's anesthesiology consultation in 2019: "Patient states she had vocal changes not immediately after, but several days afterward she was intubated. After speaking a while she would notice her voice weakening. It is not back to normal. Patient states she has occasional neck pain." Patient will have further discussion with anesthesiologist amina OZUNA. - COVID screening: Per assessment on 06/07/2021: Travel screen negative, no known COVID-19 positive contacts or current COVID-19 related symptoms in past 2 weeks. Patient vaccinated. Surgeon arranging preop COVID testing, scheduled 06/11/2021 [facility]. Awaiting results. Chart Review Chart Review: Acceptable Risk for Surgery and Patient seen in Pre Admission Testing Teaching & Discussion Pre-Anesthesia Teaching/Discussion Notes: Instructed NPO after midnight before surgery, except medications with 15 cc of water. Medication instructions provided according to the PAT guidelines. History Surgery Operation Date: 06/14/21 08:55 Proposed Procedures p Right Breast Mastectomy with Right [place] Lymph Node Biopsy - Dhaval Ren MD Height/Weight Height: 5 ft 1.5 in Weight: 46.4 kg Allergies Allergy/AdvReac Type Severity Reaction Status Date / Time Cipro Allergy Unknown STOMACH Verified 04/26/17 21:15 PAINS ciprofloxacin AdvReac Unknown STOMACH Verified 06/04/21 11:24 PAINS metronidazole AdvReac Unknown STOMACH/DIGESTIVE Verified 06/04/21 11:24 PAIN NSAIDS (Non-Steroidal AdvReac Unknown STOMACH Verified 06/04/21 11:24 Anti-Inflamma PAIN Sulfa (Sulfonamide AdvReac Unknown SEVERE Verified 06/04/21 11:24 Antibiotics) STOMACH PAINS Medications Home Medications Medication Instructions Recorded Confirmed Last Taken lactobacillus combination no.4 3 3,000 mmu cells PO QAM 06/04/21 06/04/21 Unknown billion cell capsule (Probiotic) famotidine PRN 06/07/21 Unknown Past Medical History Medical History (Updated 06/08/21 @ 10:32 by Maritza Crowder PA-C) Costochondritis HX GERD (gastroesophageal reflux disease) controlled, stable per pt History of Clostridioides difficile infection 2019 Patient denies h/o stroke, seizures, heart attack, heart failure, DM, HTN, blood clots or blood transfusions. Exercise / Class Metabolic Activity II 4-5 Yardwork/Stairs/Walk up hill (denies CP or SOB with 1 FOS) Past Family History Family History Sister Family history of diabetes mellitus Other Family history non-contributory Past Surgical History Surgical History (Updated 06/07/21 @ 13:27 by Maritza Crowder PA-C) H/O hernia repair X 2 History of anesthesia reaction WITH HERNIA REPAIR [facility] FOR AWH[facility]-PT REQUESTING USE OF LMA FOR SURGERY History of colonoscopy History of esophagogastroduodenoscopy (EGD) History of hysterectomy History of lumpectomy of left breast BENIGN History of open reduction and internal fixation (ORIF) procedure RIGHT HIP-06/18/2018: SAB at L3-L4, 1 attempt. No issues per anesthesia postop progress note. Past Anesthesia History No Family Hx of Anesthesia Complications and Other (Pt requesting LMA d/t voice changes related to intubation in past per pt) History of PONV No Hx of PONV and No Hx of Motion Sickness Social History Smoking Status: Never smoker Do You Dip or Chew Tobacco: No Hx Alcohol Use: Yes Alcohol type: wine alcohol intake frequency: holidays/special occasions only Hx Substance Use: No Review of Systems Rare palpitations with activity or stress. Denies dizziness or lightheadedness. Chronic, denies change or worsening. H/o PVCs upon comparison ECG. Patient denies chest pain, shortness of breath, dyspnea on exertion, snoring, witnessed apneas, fever, chills, cough, or wheezing. Physical Exam Vital Signs Vitals BP 115/70 P 91 TEMP 98.2 SP02 99% on RA RESP 17 Physical Full cervical extension range of motion without pain Full TMJ range of motion TMD 3 finger breaths Mallampati Score 3, small oral opening Dentition: intact, missing lower right side with implant, multiple caps throughout including one in front; denies chipped or loose teeth or bridges Lungs: normal respiratory effort. Clear throughout to auscultation, no adventitious breath sounds Cardiac: regular rate and rhythm, no murmurs noted Carotid arteries: negative bruit bilat Extremities: no distal extremity edema Lab Results Anesthesia Preop Results Results Anesthesia Widget: WBC 4.38 K/uL (4.8-10.8) L 06/07/21 Hgb 11.6 g/dL (12.0-16.0) L 06/07/21 Hct 36.0 % (37-47) L 06/07/21 Plt 266 K/uL (130-400) 06/07/21 Na 137 mmol/L (136-145) 06/07/21 K 4.0 mmol/L (3.5-5.1) 06/07/21 Cl 104 mmol/L (98-107) 06/07/21 CO2 28 mmol/L (21-32) 06/07/21 BUN 20 mg/dl (7-18) H 06/07/21 Creat 0.59 mg/dl (0.6-1.2) L 06/07/21 Glucose Level 108 mg/dl (70-99) H 06/07/21 Testing Electrocardiogram Date: 06/07/21 Normal sinus rhythm, rate 83 bpm. Possible old septal infarct (cited on or before 06/17/2018), PVCs no longer present upon comparison.
[~2021-06-14 06:40] MED LIST changes: +LACTATED RINGER'S 1,000 ML IV SCH; -MISCCAP80 PO; +ceFAZolin 2000MG 2,000 MG/15 ML SYR IV SCH
--- NOTE | 2021-06-14 09:31 | Nuclear Medicine Report ---
LYMPHOSCINTIGRAPHY CLINICAL HISTORY: RIGHT BREAST CA PROCEDURE: Using standard sterile technique, 4 intradermal and one deep injection of a total of 0.535 mCi of Lymphoseek was placed in the right breast. The patient tolerated the procedure well. There we re no immediate complications. The patient was subsequently transported to the surgical suite. No kelechi ging was obtained at the referring physician's request. IMPRESSION: Injection of 0.535 mCi of Lymphoseek in the right breast. ACT 112: Negative or not required by law. Electronically signed by: Thomas Leal M.D. 06/14/2021 9:30 AM
[2021-06-14] MEDS ORDERED: CITRIC ACID/SODIUM CITRATE 15 ML UDC PO ONE (10:34)
[2021-06-14] MEDS ORDERED: PROPOFOL IV EMULSION 10 MG/ML 20 ML VIAL IV ONE (11:02)
[2021-06-14] MEDS ORDERED: fentaNYL citrate 100 MCG/2 ML VIAL ONE (11:02)
[2021-06-14] MEDS ORDERED: LIDOCAINE/EPINEPHRINE 1% 20 ML VIAL ONE (11:07)
[2021-06-14] MEDS ORDERED: ISOSULFAN BLUE 10 MG/ML VIAL 5 ML ONE ×2 (11:07→11:15)
[2021-06-14] MEDS ORDERED: BUPIVACAINE/EPINEPHRINE 0.25% 1:200,000 30 ML VIAL ONE (11:08)
[2021-06-14] MEDS ORDERED: LIDOCAINE 1% LOCAL 20 ML VIAL ONE (11:15)
--- NOTE | 2021-06-14 11:22 | History & Physical Bridge Note ---
Date of Service June 14, 2021 History & Physical Bridge Note I have examined the patient, reviewed the History & Physical and in the interval since the performance of the History & Physical I have noted the following changes of clinical significance: no changes noted
[2021-06-14] MEDS ORDERED: MIDAZOLAM HCL 1 MG/ML 2ML VIAL ONE (11:32)
[2021-06-14] MEDS ORDERED: ePHEDrine sulfate 50 MG/ML SYR ONE (12:07)
[2021-06-14] MEDS ORDERED: ONDANSETRON INJ 2 MG/ML 2 ML VIAL ONE (12:12)
[2021-06-14] MEDS ORDERED: DEXAMETHASONE SOD INJ 4 MG/ML VIAL ONE (12:12)
--- NOTE | 2021-06-14 13:34 | Post Operative Brief Note ---
Immediate Post Op Note v1 Date of Surgery June 14, 2021 Pre & Post Diagnosis Operation Date: 06/14/21 10:50 Pre-Op Diagnosis: Right Breast Cancer Clinical Stage IIa Post-Op Diagnosis: Right Breast Cancer Clinical Stage IIa I identified the patient and participated in the time-out.: Yes Procedure Operation Date: 06/14/21 10:50 Actual Procedures p Right Breast Mastectomy with Right [place] Lymph Node Biopsy(Right) - Dhaval Ren MD Surgeon Dhaval Ren MD Java Programmer LINDSEY Bustos assisted with tissue retraction, closure Estimated Blood Loss 20 Findings Consistent with Post-Op Diagnosis [place] lymph node x3 hot and blue; large mass inner quadrants right breast Drains Darryl-Fajardo Drain (10mm flat)
--- NOTE | 2021-06-14 13:41 | Operative Report ---
Post Operative Report Pre & Post Diagnosis Operation Date: 06/14/21 10:50 Pre-Op Diagnosis: Right Breast Cancer Clinical Stage IIa Post-Op Diagnosis: Right Breast Cancer Clinical Stage IIa I identified the patient and participated in the time-out.: Yes Procedure Operation Date: 06/14/21 10:50 Actual Procedures p Right Breast Mastectomy with Right [place] Lymph Node Biopsy(Right) - Dhaval Ren MD Surgeon Dhaval Ren MD Ice Hockey Coach LINDSEY Bustos assisted with tissue retraction, closure Estimated Blood Loss 20 Findings Consistent with Post-Op Diagnosis Right axillary sentinel lymph nodes x3, respective counts of 1300, 581, 360; background counts of 45 Right breast mass inner quadrant Specimens [place] lymph node x3 from right axilla Right breast mastectomy Drains 10 Camb[place]ian flat JON drain Anesthesia Type General Complications No immediate complications Indications Right breast infiltrating lobular cancer Description of Procedure The patient was taken to the operating room, placed supine on the operating table. A timeout was performed, perioperative antibiotics were administered, SCD boots were placed. After adequate anesthesia and analgesia was obtained, Lymphazurin blue was injected into and around the right nipple areolar complex and massaged into the breast, and the patient was prepped and draped in the n ormal sterile fashion. The mastectomy incision was drawn onto the right breast and checked for symmetry. 1% lidocaine with epinephrine was injected into and around the incision and the breast tissue on the right. Incision was made with 15 blade scalpel. Attention was turned first to the axilla. Attain the level of the axillary fat pad and dissection began within the axillary fat pad and yielded 3 sentinel lymph nodes that were dyed blue and at high count. These were dissected circumferentially and removed. There was sent off the field for specimen. The background radiation was less than 5% of the sentinel lymph node #1. We then continued with the mastectomy. Flaps were raised superiorly to the subclavicular space, medially to the sternum, inferiorly to the rectus abdominis sheath, and laterally into the axilla. The dissection plane was the plane between the breast tissue and the subcutaneous fat. Care was taken to make the flaps as thin as possible in the area near the mass in the inner quadrants. The breast was then excised from the underlying pectoralis major with its fascia using the Bovie electrocautery. It was oriented with sutures and ink and was sent off the field for specimen. Attention was turned to hemostasis, which was attended to and was excellent. The wound was copiously irrigated and suctioned free, and again hemostasis was excellent. A 10 Camb[place]ian flat JON drain was placed through separate stab incision and was secured with a 3-0 nylon suture. The subcutaneous tissue was closed with interrupted 3-0 Vicryl suture. The skin was closed with running 4-0 Monocryl subcuticular stitch. Benzoin and Steri-Strips were applied. A dressing was applied. The drain was placed to suction. The patient tolerated the procedure without complication, was transferred in stable condition to the PACU. All instrument, needle, and sponge counts were correct at the end of the case. My lead dental assistant was necessary throughout the procedure for tissue retraction, possible camera operation, and closure of the wounds. I understand that section 1842(b)(7)(D) of the Social Security act generally prohibits Medicare physician fee schedule payment for the services of assistants at surgery in teaching hospitals when qualified residents are available to furnish such services. I certify that the services for which payment is claimed were medically necessary and that no qualified resident was available to perform the services. I further understand that these services are subject to postpayment review by the Medicare carrier. I attest to the content of the Intraoperative Record and any orders documented therein. Any exceptions are noted below.
[2021-06-14] MEDS ORDERED: PROMETHAZINE HCL 12.5 MG in SODIUM CHLORIDE 0.9% 50 ML IV PRN ×2 (13:43→14:51)
[2021-06-14] MEDS ORDERED: NALOXONE HCL 0.4 MG/1 ML VIAL/CARP IV PRN (13:43)
[2021-06-14] MEDS ORDERED: fentaNYL citrate 100 MCG/2 ML VIAL IV PRN (13:43)
[2021-06-14] MEDS ORDERED: ATROPINE SULFATE 0.1 MG/ML 10ML SYR IV PRN (13:43)
[2021-06-14] MEDS ORDERED: LABETALOL HCL IV 5 MG/ML 20ML IV PRN (13:43)
[2021-06-14] MEDS ORDERED: ONDANSETRON INJ 2 MG/ML 2 ML VIAL IV PRN ×2 (13:43→14:51)
[2021-06-14] MEDS ORDERED: FLUMAZENIL 0.1 MG/1 ML 10 ML VIAL IV PRN (13:43)
[2021-06-14] MEDS ORDERED: ePHEDrine sulfate 50 MG/ML AMP IV PRN (13:43)
--- NOTE | 2021-06-14 14:24 | Anesthesiology Progress Note ---
Date of Service June 14, 2021 Anesthesia Post Procedure Vital Signs Vital Signs: Temp Pulse Pulse Resp BP Pulse Ox 06/14/21 14:20 73 12 107/61 100 06/14/21 14:10 72 14 118/64 100 06/14/21 14:00 76 20 110/57 L 100 06/14/21 13:53 36.1 C L 90 18 107/62 100 06/14/21 07:15 36.7 C 80 20 128/64 99 Pain Intensity Right Breast: Pain Intensity: 4 Transfer of Care Handoff Completed per policy Notes Mental Status: alert / awake / arousable Patient Amnestic to Procedure: Yes Nausea / Vomiting: adequately controlled Pain: adequately controlled Airway Patency, RR, SpO2: stable & adequate BP & HR: stable & adequate Hydration State: stable & adequate Anesthetic Complications: no major complications apparent
[2021-06-14] MEDS ORDERED: MoRPHine SULFATE 2 MG/ML CARP IV PRN (14:51)
[2021-06-14] MEDS ORDERED: FAMOTIDINE 20 MG TAB PO PRN (14:51)
[2021-06-14] MEDS ORDERED: KETOROLAC TROMETHAMINE 15 MG/ML VIAL IV PRN (14:51)
[2021-06-14] MEDS ORDERED: oxyCODONE/ACETAMINOPHEN 5mg/325mg TAB PO PRN (14:51)
[2021-06-14] MEDS ORDERED: LACTATED RINGER'S 1,000 ML IV SCH (14:51)
[2021-06-14] MEDS: ACETAMINOPHEN 325 MG TAB PO PRN ×2 (15:51→22:20)
[2021-06-15] MEDS: ACETAMINOPHEN 325 MG TAB PO PRN (07:44)
[2021-06-15] MEDS ORDERED: ENOXAPARIN INJ 30 MG/0.3 ML SYR SQ SCH (09:00)
--- NOTE | 2021-06-15 13:06 | Surgery Progress Note ---
Date of Service June 15, 2021 Assessment & Plan (1) Infiltrating lobular carcinoma of right breast in female: Plan: doing well postoperative day 1 status post right breast mastectomy with sentinel lymph node biopsy. She is tolerating a diet. She denies pain. I have discussed with her exercises for lymphedema. We are waiting the pathology report. She will be discharged home today. We will see her back in the office in 1 week. She will call with any Questions or concerning symptoms. Admission and Anticipated Discharge Date Admission Date: June 14, 2021 Subjective Doing well postoperative day 1 status post Right breast mastectomy and sentinel lymph node biopsy. she is doing very well. She denies pain. She has only been taking Tylenol. She is tolerating a diet. She denies nausea vomiting. She denies fevers or chills. Physical Exam Constitutional: WD/WN, vitals as above Chest (Breasts): Additional Comments: The incision right chest wall dressing clean dry and intact; drain with minimal serosanguineous output Musculoskeletal: Extremities: no cyanosis and no clubbing Skin: no rashes, warm and dry Psychiatric: A+Ox3, euthymic affect Results & Data ([facility]) Vital Signs (Past 12 Hours) Vital Signs Temp Pulse Resp BP Pulse Ox 06/15/21 09:42 36.6 C 76 16 95/59 L 98 06/15/21 07:11 36.6 C 76 16 95/59 L 98 06/15/21 03:29 36.4 C L 73 16 91/52 L 97
--- NOTE | 2021-06-16 14:48 | Discharge Summary ---
Date of Service June 16, 2021 Admission HPI Per Admitting Provider See H&P for details Principal Diagnosis infiltrating lobular carcinoma of right breast Discharge Exam Constitutional WD/WN, vitals as above Musculoskeletal Extremities: no cyanosis and no clubbing Skin no rashes, warm and dry Psychiatric A+Ox3, euthymic affect Discharge Data Allergies Allergy/AdvReac Type Severity Reaction Status Date / Time Cipro Allergy Unknown STOMACH Verified 04/26/17 21:15 PAINS ciprofloxacin AdvReac Unknown STOMACH Verified 06/14/21 07:05 PAINS metronidazole AdvReac Unknown STOMACH/DIGESTIVE Verified 06/14/21 07:05 PAIN NSAIDS (Non-Steroidal AdvReac Unknown STOMACH Verified 06/14/21 07:05 Anti-Inflamma PAIN Sulfa (Sulfonamide AdvReac Unknown SEVERE Verified 06/14/21 07:05 Antibiotics) STOMACH PAINS Procedures Performed Operation Date: 06/14/21 10:50 Actual Procedures p Right Breast Mastectomy with Right [place] Lymph Node Biopsy(Right) - Dhaval Ren MD Ordered Studies 06/14/21 05:00 US - OR guided needle placemen Routine Hospital Course (1) Infiltrating lobular carcinoma of right breast in female: she presents to the hospital for right breast mastectomy with sentinel lymph node biopsy, the details of which are dictated in a separate operative note. Postoperatively, she was transferred in stable condition to the PACU and subsequently to the floor. DVT prophylaxis with SCD boots, early ambulation, and subcutaneous Lovenox. Aggressive pulmonary toilet with early ambulation, incentive spirometry. She was advanced as tolerated on her diet. Pain control with p.o. Tylenol and Percocet. By postoperative day 1, she was tolerating regular diet, and not having any pain. she was shown how to empty and record the drain output. She was discharged home in stable condition. She will follow up in 1 week in clinic. Total Time Total Time Spent Total Time Spent (In Minutes): 30 minutes Discharge Plan Discharge Items Patient Disposition: Home - Self-Care Reason For Visit: Infiltrating lobular carcinoma of right breast in Discharge Diagnosis: right breast cancer Activity: Per Instructions section Lifting: No more than 10 pounds Bathing: May shower/bathe in 3 days Sexual Activity: Wait until after follow-up appointment Exercise/Sports: Wait until after follow-up appointment Non-emergency contact: Surgeon Call non-emergency contact if: you have any medication questions, your symptoms worsen, your pain is not controlled, your pain is worsening, your temperature is above 101.5, your wound has increased redness, your wound has increased drainage and your wound pain has increased Follow-up/Referrals: Kenyatta Godoy PA-C [Primary Care Provider] - Diet: Regular Addtl Attending Provider Instructions: ACTIVITY RECOMMENDATIONS: * No lifting, pushing, pulling or exercising the affected side for three days. RETURN TO SCHOOL/WORK: * You may return to work/school after the procedure, but do not perform any strenuous activities for 24 to 48 hours. MEDICATIONS: * Tylenol (two 325 mg) every four to six hours if needed for mild pain (if not allergic to Tylenol). DIET: * Resume previous diet. SPECIAL CARE INSTRUCTIONS: * Keep incision sites dry for 24 hours. May shower after 24 hours, but do not soak (bathe) incision. * Leave the steri-strips on. Allow the steri-strips to fall off by themselves. You may place a Bandaid crosswise over the strips, if desired. * Keep drain site clean and dry. Empty and record drain output as directed. Bring record to post operative visit. * Apply ice 10 minutes on and 10 minutes off as needed. * Wear a bra at bedtime to sleep more comfortably for 2-3 days. * Your referring physician should have the results after approximately 5 to 7 business days. * Call for unusual bleeding, fever, drainage, etc or if you have any questions call during normal business hours. * For an emergency after hours go to the emergency room. FOLLOW UP VISIT: Follow-up with Dr. Ren in one week. Pending Studies at Discharge: No Stand-Alone Forms: My [facility] [employer], Smoking Cessation Medications and DC Order Prescriptions: New acetaminophen-codeine 300-30 mg tablet 1 tab PO Q6H PRN (Reason: pain) Qty: 10 RF: 0 Continued Probiotic 3 billion cell Capsule 3,000 mmu cells PO QAM RF: 0 famotidine tablet 20 mg PO DAILY PRN (Reason: GERD) RF: 0 Discharge Orders: Discharge Order (Routine); Ordered 06/15/21 Ordered By: Dhaval Toribio/Other Patient Handouts: DVT Post Op Prevention Admission Data Admit Date/Time: 06/14/21 13:46 Attending Provider: Dhaval Ren Admit Provider: Dhaval Ren Primary Care Provider: Kenyatta Godoy Other Interventions: Discharge Summary Assessment (RN) Last Done: 06/15/21 09:42
== END 2021-06-15 13:05 | disposition home or self-care (01) ==
LOC: ASU 06:40 → 3N 06:40

== ENCOUNTER 2023-11-23 19:52 | Observation (INO) ==
--- NOTE | 2023-11-23 20:18 | Emergency Department Note ---
Impression & Plan CVA (cerebrovascular accident) ED Provider Note NAME: POORNIMA QUEZADA AGE: 87 SEX: F : 1935 ARRIVES VIA: Walk-In INFORMANT: Patient, the patient's family member ED PROVIDER(S): Lenin Mai DO CHIEF COMPLAINT: Strokelike symptoms HPI: The patient is an 87-year-old female who presented to the emergency department with her family for an evaluation of strokelike symptoms. The patient had symptoms on Monday that included slurred speech. The symptoms lasted less than 24 hours. She was doing well and called her family doctor on Monday. She had a workup that included carotid Dopplers that were done today as well as an MRI of the brain. She was found to have a subacute infarct on the left. The patient has no history of stroke. She has a history of breast cancer. The patient denies having any headaches. She denies having any nausea or vomiting. She denies any symptoms at this time. She was called today by her primary care physician's office and instructed to come to the emergency department ROS: See above HPI for pertinent positives & negatives. A total of 10 systems reviewed and were otherwise negative. PAST MEDICAL HISTORY: See Below PAST SURGICAL HISTORY: See Below FAMILY HISTORY: See Below SOCIAL HISTORY: See Below HOME MEDICATIONS: See Below ALLERGIES: See Below VITALS: See Below PHYSICAL EXAMINATION: GENERAL: Patient is awake alert in no acute distress patient is resting comfortably and showing no signs of anxiety EYES: The conjunctivae are clear. The pupils are round and reactive. EARS, NOSE, MOUTH AND THROAT: The nose is without any evidence of any deformity. NECK: The neck is nontender and supple. RESPIRATORY: Normal respiratory effort is noted there is no evidence of wheezing rhonchi or rales CARDIOVASCULAR: Regular rate and rhythm noted there no murmurs rubs or gallops normal S1 normal S2. GASTROINTESTINAL: The abdomen is soft. Abdomen is nontender. MUSCULOSKELETAL/EXTREMITIES: There is no evidence of gross deformity full range of motion is noted in the hips and shoulders. SKIN: There is no obvious evidence of any rash. There are no petechiae, pallor or cyanosis noted. NEUROLOGIC: Patient is awake alert and oriented x3. Strength was symmetric. Speech was clear MEDICAL DECISION MAKING: The patient is an 87-year-old female who presented to the emergency department with her daughter. The patient had an episode over the weekend where she had difficulty speaking. The patient states that the symptoms resolved by Monday. She went to see her family doctor early this week. She was set up with outpatient studies including carotid Dopplers as well as an MRI of the brain. The carotid Dopplers did not show any acute stenosis. She did have some disease but it was less than 50% bilaterally. Her MRI appeared to show a subacute ischemic infarct of the left chao radiata. The patient was called by her primary care physician's office tonight and they were told to come to the emergency department for further evaluation. I discussed the patient's laboratory and radiographic studies. She was not hypertensive in the emergency department. She did not exhibit signs of dysrhythmia specifically atrial fibrillation. CT angiography was obtained. There is no significant carotid artery disease or cerebral artery disease. I discussed the patient's condition with the [facility] neurologist. They do agree that the patient may require further workup specifically an echocardiogram. Given that at this time this appears to be a cryptogenic stroke it is possible she may be having paroxysmal atrial fibrillation. The patient was agreeable to evaluation by the hospitalist for inpatient management. [facility] Nursing notes reviewed. Prior medical records reviewed Vital Signs: reviewed and remarkable for no significant abnormalities Differential diagnosis: Infection, dehydration, metabolic abnormality, hypo/hyperglycemia, electrolyte disturbance, anemia, hypoxia, cardiac sources, intracerebral event, toxicologic, neurologic, as well as other pathologies. ER treatment provided: See below Diagnostics interpreted by me: ECG: EKG was obtained in the emergency department. My interpretation is normal sinus rhythm at 91 bpm. First-degree AV block was noted. There is no acute ST segment abnormalities noted. There is no ectopy. This was compared to a tracing from June 07, 2021. No changes were noted. Cardiac Monitoring: An order was placed for continuous cardiac monitoring. The monitor shows a rate of 82 bpm with sinus rhythm. Laboratory studies: As stated above and show below. Imaging studies: See below. Radiographic imaging was reviewed by myself Consultation(s): I discussed this case with Dr. Santana Who is on-call for the [facility] neurology group. I discussed this case with Dr. Shafer [facility]. Past Med/Surg History Problem List (Updated 11/23/23 @ 21:43 by Lenin Mai DO) CVA (cerebrovascular accident) (Acute) Infiltrating lobular carcinoma of right breast in female Hip fracture (Acute) Hypokalemia Hypomagnesemia DVT prophylaxis Disposition to allergy in upper respiratory tract Discharge planning issues Encounter for pre-operative examination Costochondritis (Chronic) HX Medical History History of Clostridioides difficile infection 2018 GERD (gastroesophageal reflux disease) controlled, stable per pt Surgical History History of open reduction and internal fixation (ORIF) procedure RIGHT HIP-06/18/2018: SAB at L3-L4, 1 attempt. No issues per anesthesia postop progress note. History of anesthesia reaction WITH HERNIA REPAIR [facility] ANESTHESIA-HOARSENESS FOR AWHILE-PT REQUESTING USE OF LMA FOR SURGERY History of lumpectomy of left breast BENIGN History of esophagogastroduodenoscopy (EGD) History of colonoscopy H/O hernia repair X 2 History of hysterectomy Family History Sister Family history of diabetes mellitus Other Family history non-contributory Social History Smoking Status: Never smoker Second Hand Exposure: Yes ( A CHILD/AT WORK IN THE PAST); Do You Dip or Chew Tobacco: No; Hx Alcohol Use: Yes Alcohol type: wine Hx Substance Use: No Preferred Language: Cook Islander Communication Ability: Effective 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: No Beliefs That Will Affect Care: None marital status: Current Living Situation: Spouse current occupational status: retired Feels Safe at Home: Yes Assistive Devices: None Allergies Allergies Allergy/AdvReac Type Severity Reaction Status Date / Time Cipro Allergy Unknown STOMACH Verified 04/26/17 21:15 PAINS ciprofloxacin AdvReac Unknown STOMACH Verified 11/23/23 20:30 PAINS metronidazole AdvReac Unknown STOMACH/DIGESTIVE Verified 11/23/23 20:30 PAIN NSAIDS (Non-Steroidal AdvReac Unknown STOMACH Verified 11/23/23 20:30 Anti-Inflamma PAIN Sulfa (Sulfonamide AdvReac Unknown SEVERE Verified 11/23/23 20:30 Antibiotics) STOMACH PAINS Home Meds Home Medications Medication Instructions Recorded Confirmed lactobacillus combination no.4 3 3,000 mmu cells PO QAM 06/04/21 11/23/23 billion cell capsule (Probiotic) famotidine 20 mg PO DAILY PRN GERD 06/07/21 11/23/23 anastrozole 1 mg tablet 1 mg PO DAILY 11/23/23 11/23/23 calcium carbonate (Tums) 200 mg PO BID 11/23/23 11/23/23 Results & Data (ED) Vital Signs Vital Signs - 24 hr 11/23/23 19:59 11/23/23 20:19 Temperature 36.7 C Temperature Source Temporal Artery Scan Pulse Rate 90 90 Respiratory Rate 18 Respiratory Effort / Characteristics Non-Labored Spontaneous Respiratory Depth Normal Respiratory Pattern Regular Blood Pressure 136/65 Blood Pressure Mean 88 Blood Pressure Position Sitting Pulse Oximetry 97 Oxygen Delivery Method Room Air Sepsis Recent Fever Within 48 Hours No Sepsis New/Unexplained Change in Mental Status N/A Sepsis Action Taken by Nursing No Action Required Home Medications Current Medication List: was personally reviewed by me Laboratory Data Attestation: I reviewed the patient's lab results. 11/23/23 20:14 11/23/23 20:14 Lab Results 11/23/23 11/23/23 Range/Units 20:14 20:36 WBC 7.03 (4.8-10.8) K/ul RBC 3.36 L (4.20-5.40) M/uL Hgb 11.8 L (12.0-16.0) g/dl POC Hgb 10.9 L (12.0-16.0) g/dl Hct 34.5 L (37.0-47.0) % POC Hct 32 L (37-47) % MCV 102.7 H (80.0-100.0) fL MCH 35.1 H (25.0-34.0) pg MCHC 34.2 (32.0-36.0) g/dL RDW Std Deviation 51.2 H (36.4-46.3) fL RDW Coeff of Alicia 13.5 (11.5-14.5) % Plt Count 267 (130-400) K/uL MPV 8.8 L (9.4-12.4) fL Immature Gran % (Auto) 0.4 % Neut % (Auto) 63.5 % Lymph % (Auto) 18.9 % White % (Auto) 15.9 % Eos % (Auto) 0.4 % Baso % (Auto) 0.9 % Neut # (Auto) 4.46 (1.40-6.50) K/uL Lymph # (Auto) 1.33 (1.20-3.40) K/uL White # (Auto) 1.12 H (0.11-0.59) K/uL Eos # (Auto) 0.03 (0.00-0.50) K/uL Baso # (Auto) 0.06 (0.00-0.20) K/uL Immature Gran # (Auto) 0.03 (0.01-0.20) K/uL PT 10.6 (9.0-12.0) Seconds INR 1.0 (0.9-1.1) APTT 25 (21-31) Seconds PTT Ratio 0.9 POC Sodium 130 L (135-144) mmol/L POC Potassium 4.1 (3.3-5.0) mmol/L POC Chloride 93 L (101-112) mmol/L POC Total CO2 25 (24-31) mmol/L POC Anion Gap 17.0 (16-25) mmol/L POC BUN 13 (7-18) mg/dl POC Creatinine 0.6 (0.6-1.3) mg/dl POC Glucose (other) 113 H (70-99) mg/dl POC Ioniz Calcium Susan 1.17 (1.12-1.32) mmol/l Troponin I High Sens 7.8 (0-14) pg/ml Administered Medications Discontinued Medications Ioversol (Optiray 320 125ml) 118 ml IV ONCE ONE Stop: 11/23/23 21:04 Last Admin: 11/23/23 21:05 Dose: 118 ml Documented By: VALOREM Imaging Data Attestation: I personally reviewed and interpreted this imaging study as follows: My Impression: 1 view chest x-ray was obtained in the emergency department. My interpretation is no free air or definite infiltrate, cardiomegaly was noted, this was compared to a chest x-ray from June 17, 2018. No significant changes were noted. Final report pending. CT of the brain was obtained in the emergency department. My interpretation is no intracranial hemorrhage or mass effect, final report below. Radiologist's Impression: Head CT 11/23/23 20:09 CT angio neck with con, CT head/brain wo con, CT angio head w con CLINICAL HISTORY: neuro deficit, acute stroke suspected TECHNIQUE: Contiguous axial CT images of the head were acquired from the base of the skull to the vertex without intravenous contrast administration. CT angiography of the head and neck was performed following intravenous administration of iodinated contrast. Coronal and sagittal MIPS were obtained from the axial data set and were submitted for review. Automated dose lowering techniques and/or adjustment according to patient size were utilized for this examination. All measurements were calculated based on NASCET criteria. CT DOSE: 877. mGy.cm Comparison: None available at the time of this dictation. FINDINGS: CT head: There is no acute intracranial hemorrhage or evidence of acute territorial infarction. No shift of the midline structures, mass effect, or extra-axial abnormalities are shown. Mild biapical scarring is seen. CTA Neck: A 3 vessel aortic arch is shown. There is no significant atherosclerotic plaque in the aortic arch or the origins of the innominate, left common carotid, and left subclavian arteries. There is mild calcified atherosclerotic plaque at the bifurcation of the right common carotid artery without hemodynamically significant flow stenosis. There is no dissection present. The left vertebral artery is dominant. CTA Head: The anterior and posterior cerebral circulations are patent. origin of the left posterior cerebral artery is seen. IMPRESSION: 1. No acute intracranial hemorrhage, evidence of acute territorial infarction, or other acute intracranial disease process. 2. No occlusion, hemodynamically significant stenosis, or dissection in the major cervical arteries. 3. No occlusion, hemodynamically significant stenosis, aneurysm, dissection, or arteriovenous malformation in the major intracranial arteries. Assessment of stenosis of the internal carotid arteries is based on NASCET criteria. ACT 112: Negative or not required by law. Electronically signed by: Thomas Leal M.D. 11/23/2023 9:19 PM Head CTA 11/23/23 20:09 CT angio neck with con, CT head/brain wo con, CT angio head w con CLINICAL HISTORY: neuro deficit, acute stroke suspected TECHNIQUE: Contiguous axial CT images of the head were acquired from the base of the skull to the vertex without intravenous contrast administration. CT angiography of the head and neck was performed following intravenous administration of iodinated contrast. Coronal and sagittal MIPS were obtained from the axial data set and were submitted for review. Automated dose lowering techniques and/or adjustment according to patient size were utilized for this examination. All measurements were calculated based on NASCET criteria. CT DOSE: 877. mGy.cm Comparison: None available at the time of this dictation. FINDINGS: CT head: There is no acute intracranial hemorrhage or evidence of acute territorial infarction. No shift of the midline structures, mass effect, or extra-axial abnormalities are shown. Mild biapical scarring is seen. CTA Neck: A 3 vessel aortic arch is shown. There is no significant atherosclerotic plaque in the aortic arch or the origins of the innominate, left common carotid, and left subclavian arteries. There is mild calcified atherosclerotic plaque at the bifurcation of the right common carotid artery without hemodynamically significant flow stenosis. There is no dissection present. The left vertebral artery is dominant. CTA Head: The anterior and posterior cerebral circulations are patent. origin of the left posterior cerebral artery is seen. IMPRESSION: 1. No acute intracranial hemorrhage, evidence of acute territorial infarction, or other acute intracranial disease process. 2. No occlusion, hemodynamically significant stenosis, or dissection in the major cervical arteries. 3. No occlusion, hemodynamically significant stenosis, aneurysm, dissection, or arteriovenous malformation in the major intracranial arteries. Assessment of stenosis of the internal carotid arteries is based on NASCET criteria. ACT 112: Negative or not required by law. Electronically signed by: Thomas Leal M.D. 11/23/2023 9:19 PM Neck CTA 11/23/23 20:09 CT angio neck with con, CT head/brain wo con, CT angio head w con CLINICAL HISTORY: neuro deficit, acute stroke suspected TECHNIQUE: Contiguous axial CT images of the head were acquired from the base of the skull to the vertex without intravenous contrast administration. CT angiography of the head and neck was performed following intravenous administration of iodinated contrast. Coronal and sagittal MIPS were obtained from the axial data set and were submitted for review. Automated dose lowering techniques and/or adjustment according to patient size were utilized for this examination. All measurements were calculated based on NASCET criteria. CT DOSE: 877. mGy.cm Comparison: None available at the time of this dictation. FINDINGS: CT head: There is no acute intracranial hemorrhage or evidence of acute territorial infarction. No shift of the midline structures, mass effect, or extra-axial abnormalities are shown. Mild biapical scarring is seen. CTA Neck: A 3 vessel aortic arch is shown. There is no significant atherosclerotic plaque in the aortic arch or the origins of the innominate, left common carotid, and left subclavian arteries. There is mild calcified atherosclerotic plaque at the bifurcation of the right common carotid artery without hemodynamically significant flow stenosis. There is no dissection present. The left vertebral artery is dominant. CTA Head: The anterior and posterior cerebral circulations are patent. origin of the left posterior cerebral artery is seen. IMPRESSION: 1. No acute intracranial hemorrhage, evidence of acute territorial infarction, or other acute intracranial disease process. 2. No occlusion, hemodynamically significant stenosis, or dissection in the major cervical arteries. 3. No occlusion, hemodynamically significant stenosis, aneurysm, dissection, or arteriovenous malformation in the major intracranial arteries. Assessment of stenosis of the internal carotid arteries is based on NASCET criteria. ACT 112: Negative or not required by law. Electronically signed by: Thomas Leal M.D. 11/23/2023 9:19 PM Discharge Plan Visit Data Chief Complaint: Abnormal Labs/Diagnostic Testing Stated Complaint: HAD A STROKE, MRI SHOWED STROKE ED Provider: Lenin Mai Discharge Problem: CVA (cerebrovascular accident) Patient Disposition: Being Evaluated by Hospitalist Forms Stand Alone Forms: My [employer] Prescriptions Prescriptions: No Action Probiotic 3 billion cell Capsule 3,000 mmu cells PO QAM famotidine tablet 20 mg PO DAILY PRN (Reason: GERD) anastrozole 1 mg tablet 1 mg PO DAILY calcium carbonate [Tums] 200 mg calcium (500 mg) Tablet,Chewable 200 mg PO BID Referrals Referrals: Kenyatta Godoy PA-C [Outside Practitioners] - Discharge Problem: CVA (cerebrovascular accident) Qualifiers: CVA mechanism: unspecified Qualified Code(s): I63.9 - Cerebral infarction, unspecified
[2023-11-23 20:48] LABS: iSTAT Creatinine 0.6 mg/dl (0.6-1.3); iSTAT Hemoglobin 10.9 g/dl (12.0-16.0); iSTAT Ionized Calcium 1.17 mmol/l (1.12-1.32); iSTAT Potassium 4.1 mmol/L (3.3-5.0)
[2023-11-23 20:57] LABS: Basophils # (auto) 0.06 K/uL (0.00-0.20); Basophils % (auto) 0.9 %; Eosinophils # (auto) 0.03 K/uL (0.00-0.50); Eosinophils % (auto) 0.4 %; Hematocrit (blood only) 34.5 % (37.0-47.0); Hemoglobin 11.8 g/dl (12.0-16.0); Immature Granulocytes # (auto) 0.03 K/uL (0.01-0.20); Immature Granulocytes % (auto) 0.4 %; Lymphocytes # (auto) 1.33 K/uL (1.20-3.40); Lymphocytes % (auto) 18.9 %; Mean Corpuscular Hemoglobin 35.1 pg (25.0-34.0); Mean Corpuscular Hgb Conc 34.2 g/dL (32.0-36.0); Mean Corpuscular Volume 102.7 fL (80.0-100.0); Mean Platelet Volume 8.8 fL (9.4-12.4); Monocytes # (auto) 1.12 K/uL (0.11-0.59); Monocytes % (auto) 15.9 %; Neutrophils # (auto) 4.46 K/uL (1.40-6.50); Neutrophils % (auto) 63.5 %; Platelet Count 267 K/uL (130-400); RDW Coefficient of Variation 13.5 % (11.5-14.5); RDW Standard Deviation 51.2 fL (36.4-46.3); Red Blood Count 3.36 M/uL (4.20-5.40); White Blood Count 7.03 K/ul (4.8-10.8)
[2023-11-23 21:00] LABS: Troponin I High Sensitivity 7.8 pg/ml (0-14)
[2023-11-23] MEDS: OPTIRAY 320 125ml IV ONE (21:05)
--- NOTE | 2023-11-23 21:21 | CT Scan Report ---
CT angio neck with con, CT head/brain wo con, CT angio head w con CLINICAL HISTORY: neuro deficit, acute stroke suspected TECHNIQUE: Contiguous axial CT images of the head were acquired from the base of the skull to the haim reed without intravenous contrast administration. CT angiography of the head and neck was performed f ollowing intravenous administration of iodinated contrast. Coronal and sagittal MIPS were obtained fr om the axial data set and were submitted for review. Automated dose lowering techniques and/or adjus tment according to patient size were utilized for this examination. All measurements were calculated based on NASCET criteria. CT DOSE: 877. mGy.cm Comparison: None available at the time of this dictation. FINDINGS: CT head: There is no acute intracranial hemorrhage or evidence of acute territorial infarction. No sh ift of the midline structures, mass effect, or extra-axial abnormalities are shown. Mild biapical scarring is seen. CTA Neck: A 3 vessel aortic arch is shown. There is no significant atherosclerotic plaque in the aor tic arch or the origins of the innominate, left common carotid, and left subclavian arteries. There is mild calcified atherosclerotic plaque at the bifurcation of the right common carotid artery withou t hemodynamically significant flow stenosis. There is no dissection present. The left vertebral arter y is dominant. CTA Head: The anterior and posterior cerebral circulations are patent. origin of the left post erior cerebral artery is seen. IMPRESSION: 1. No acute intracranial hemorrhage, evidence of acute territorial infarction, or other acute intrac ranial disease process. 2. No occlusion, hemodynamically significant stenosis, or dissection in the major cervical arteries. 3. No occlusion, hemodynamically significant stenosis, aneurysm, dissection, or arteriovenous malfor mation in the major intracranial arteries. Assessment of stenosis of the internal carotid arteries is based on NASCET criteria. ACT 112: Negative or not required by law. Electronically signed by: Thomas Leal M.D. 11/23/2023 9:19 PM
[2023-11-23 21:27] LABS: Partial Thromboplastin Ratio 0.9; Partial Thromboplastin Time 25 Seconds (21-31); Prothrombin Time 10.6 Seconds (9.0-12.0)
[2023-11-23 22:11] LABS: Appearance Urine Clear (Clear); Bilirubin Urine Negative (Negative); Blood Urine Negative (Negative); Color Urine Yellow; Glucose Urine UA Negative (Negative); Ketones Urine Negative (Negative); Leukocyte Esterase Urine Negative (Negative); Nitrite Urine Negative (Negative); Protein Urine Negative (Negative); Specific Gravity Urine 1.019 (1.000-1.030); Urobilinogen Urine Negative (Negative); pH Urine 7.5 (4.5-7.5)
[2023-11-23] MEDS: ASPIRIN CHEW 324 MG PO STA (22:19)
[2023-11-23 23:09] LABS: Albumin Level 4.5 gm/dl (3.4-5.0); Bilirubin,Total 1.2 mg/dl (0.2-1.0); Calcium 9.2 mg/dl (8.6-10.3); Magnesium 1.9 mg/dl (1.7-2.4)
[2023-11-23 23:15] LABS: Albumin Globulin Ratio 1.6 (0.9-2); BUN Creatinine Ratio 23.7 (10-20); Creatinine Clr Calc Pharmacy 48.7 ml/min; Est GFR (African American) 95.5 ml/min; Est GFR (Non-African American) 82.4 ml/min; Globulin 2.8 gm/dl (2.5-4.0); Total Protein 7.3 gm/dl (6.0-8.3)
--- NOTE | 2023-11-23 23:32 | History & Physical Report ---
Date of Service November 23, 2023 Assessment & Plan (1) CVA (cerebrovascular accident): Plan: 87-year-old female with past medical history significant for irritable bowel syndrome with diarrhea, age-related osteoporosis, history of C. 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 Last Monday patient had some difficulty speaking and felt her tongue was numb. But she was able to eat and drink okay. Slight dizziness but she was able to ambulate okay.No headaches .By the next morning the symptoms resolved. She called her PCP on Monday.Outpatient workup was done with carotid Dopplers and MRI scan. MRI brain showed small acute to early subacute infarct of the left chao radiata and she was advised to come to the hospital. Both her da armen are physicians. One of her daughter is in the room. Patient currently resting comfortably and hemodynamically stable. Currently speech is okay. No facial droop seen. Denies any headache. No blurred visions. No runny nose no sore throat. No cough. No chest pain or shortness of breath. No nausea or vomiting. No abdominal pain. She has alternating diarrhea and constipation. No blood in the stools. Micturating okay. No swelling in the legs. Acute/subacute CVA had some tongue numbness and trouble speaking last Monday which resolved by Monday. Currently doing fine. Outpatient MRI showed small acute to early subacute infarct of the left chao radiata ER started on aspirin will be continued. Will also start on statin. Neurochecks. speech and PT OT evaluation CTA head and neck okay in the ER. Telemonitoring will follow echo consult neurology in a.m. for further recommendations history of right breast cancer s/p mastectomy on anastrozole which will be held follows with heme-onc DVT prophylaxis SCDs disposition telemetry full code History of Present Illness Chief Complaint: stroke Primary Care Provider: Monique Nuñez DO 87-year-old female with past medical history significant for irritable bowel syndrome with diarrhea, age-related osteoporosis, history of C. 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 Last Monday patient had some difficulty speaking and felt her tongue was numb. But she was able to eat and drink okay. Slight dizziness but she was able to ambulate okay.No headaches .By the next morning the symptoms resolved. She called her PCP on Monday.Outpatient workup was done with carotid Dopplers and MRI scan. MRI brain showed small acute to early subacute infarct of the left chao radiata and she was advised to come to the hospital. Both her daughters are physicians. One of her daughter is in the room. Patient c urrently resting comfortably and hemodynamically stable. Currently speech is okay. No facial droop seen. Denies any headache. No blurred visions. No runny nose no sore throat. No cough. No chest pain or shortness of breath. No nausea or vomiting. No abdominal pain. She has alternating diarrhea and constipation. No blood in the stools. Micturating okay. No swelling in the legs. Past medical history. As mentioned above past surgical history. Right breast biopsy. Right radical mastectomy. Radical hysterectomy. Bilateral cataracts. Left inguinal hernia repair. Social history. . No smoking. No alcohol. No drug use. Family history. Daughter has breast cancer. Allergies Allergy/AdvReac Type Severity Reaction Status Date / Time Cipro Allergy Unknown STOMACH Verified 04/26/17 21:15 PAINS ciprofloxacin AdvReac Unknown STOMACH Verified 11/23/23 20:30 PAINS metronidazole AdvReac Unknown STOMACH/DIGESTIVE Verified 11/23/23 20:30 PAIN NSAIDS (Non-Steroidal AdvReac Unknown STOMACH Verified 11/23/23 20:30 Anti-Inflamma PAIN Sulfa (Sulfonamide AdvReac Unknown SEVERE Verified 11/23/23 20:30 Antibiotics) STOMACH PAINS Home Medications Medication Instructions Recorded Confirmed Type lactobacillus combination no.4 3 3,000 mmu cells PO QAM 06/04/21 11/23/23 History billion cell capsule (Probiotic) famotidine 20 mg PO DAILY PRN GERD 06/07/21 11/23/23 History anastrozole 1 mg tablet 1 mg PO DAILY 11/23/23 11/23/23 History calcium carbonate (Tums) 200 mg PO BID 11/23/23 11/23/23 History Past Med/Surg History Problem List (Updated 11/23/23 @ 21:43 by Lenin Mai DO) CVA (cerebrovascular accident) (Acute) Infiltrating lobular carcinoma of right breast in female Hip fracture (Acute) Hypokalemia Hypomagnesemia DVT prophylaxis Disposition to allergy in upper respiratory tract Discharge planning issues Encounter for pre-operative examination Costochondritis (Chronic) HX Medical History History of Clostridioides difficile infection 2018 GERD (gastroesophageal reflux disease) controlled, stable per pt Surgical History History of open reduction and internal fixation (ORIF) procedure RIGHT HIP-06/18/2018: SAB at L3-L4, 1 attempt. No issues per anesthesia postop progress note. History of anesthesia reaction WITH HERNIA REPAIR [facility] ANESTHESIA-HOARSENESS FOR AWHILE-PT REQUESTING USE OF LMA FOR SURGERY History of lumpectomy of left breast BENIGN History of esophagogastroduodenoscopy (EGD) History of colonoscopy H/O hernia repair X 2 History of hysterectomy Family History Sister Family history of diabetes mellitus Other Family history non-contributory Social History Smoking Status: Never smoker Second Hand Exposure: Yes ( A CHILD/AT WORK IN THE PAST); Do You Dip or Chew Tobacco: No; Hx Alcohol Use: No Hx Substance Use: No Preferred Language: Korean Communication Ability: Effective Superintendent Transportation Required: No Beliefs That Will Affect Care: None marital status: Current Living Situation: Alone current occupational status: retired Feels Safe at Home: Yes Safety Concerns: Feels Safe At This Time Assistive Devices: None Assistive Devices Comment: Reading glasses Review of Systems Review of Systems: All systems reviewed & are unremarkable except as noted in HPI & below Physical Exam Physical Exam: General- Not in distress Head- atraumatic Eyes- PERRL. ENT- oropharynx clear Neck- supple, no JVD. Lungs- clear to auscultation no wheezing or crackles. Heart- regular rate and rhythm; no murmur, no gallop. Abdomen- normal bowel sounds, soft, nontender, no distension. Extremities- no pretibial edema, no erythema seen. Neuro- alert, oriented PERRL, EOMI; no facial palsy; no dysarthria; motor 5/5 bilaterally; coordination of movements normal, no pronator drift sensations intact. Skin- warm & dry Results & Data Results & Data Vital Signs (Past 12 Hours) Vital Signs Temp Pulse Pulse Resp BP BP Pulse Ox 11/23/23 22:44 82 18 140/71 98 11/23/23 20:19 90 11/23/23 19:59 36.7 C 90 18 136/65 97 O2 Del Method 11/23/23 22:44 Room Air 11/23/23 20:19 11/23/23 19:59 Room Air Diagnostic Findings Laboratory Results WBC 7.03 K/ul (4.8-10.8) 11/23/23 20:14 RBC 3.36 M/uL (4.20-5.40) L 11/23/23 20:14 Hgb 11.8 g/dl (12.0-16.0) L 11/23/23 20:14 POC Hgb 10.9 g/dl (12.0-16.0) L 11/23/23 20:36 Hct 34.5 % (37.0-47.0) L 11/23/23 20:14 POC Hct 32 % (37-47) L 11/23/23 20:36 MCV 102.7 fL (80.0-100.0) H 11/23/23 20:14 MCH 35.1 pg (25.0-34.0) H 11/23/23 20:14 MCHC 34.2 g/dL (32.0-36.0) 11/23/23 20:14 RDW Std Deviation 51.2 fL (36.4-46.3) H 11/23/23 20:14 RDW Coeff of Alicia 13.5 % (11.5-14.5) 11/23/23 20:14 Plt Count 267 K/uL (130-400) 11/23/23 20:14 MPV 8.8 fL (9.4-12.4) L 11/23/23 20:14 Immature Gran % (Auto) 0.4 % 11/23/23 20:14 Neut % (Auto) 63.5 % 11/23/23 20:14 Lymph % (Auto) 18.9 % 11/23/23 20:14 Searcy % (Auto) 15.9 % 11/23/23 20:14 Eos % (Auto) 0.4 % 11/23/23 20:14 Baso % (Auto) 0.9 % 11/23/23 20:14 Neut # (Auto) 4.46 K/uL (1.40-6.50) 11/23/23 20:14 Lymph # (Auto) 1.33 K/uL (1.20-3.40) 11/23/23 20:14 Searcy # (Auto) 1.12 K/uL (0.11-0.59) H 11/23/23 20:14 Eos # (Auto) 0.03 K/uL (0.00-0.50) 11/23/23 20:14 Baso # (Auto) 0.06 K/uL (0.00-0.20) 11/23/23 20:14 Immature Gran # (Auto) 0.03 K/uL (0.01-0.20) 11/23/23 20:14 PT 10.6 Seconds (9.0-12.0) 11/23/23 20:14 INR 1.0 (0.9-1.1) 11/23/23 20:14 APTT 25 Seconds (21-31) 11/23/23 20:14 PTT Ratio 0.9 11/23/23 20:14 POC Sodium 130 mmol/L (135-144) L 11/23/23 20:36 Sodium 130 mmol/L (136-145) L 11/23/23 20:14 POC Potassium 4.1 mmol/L (3.3-5.0) 11/23/23 20:36 Potassium 4.0 mmol/L (3.5-5.1) 11/23/23 20:14 POC Chloride 93 mmol/L (101-112) L 11/23/23 20:36 Chloride 94 mmol/L (98-107) L 11/23/23 20:14 Carbon Dioxide 26 mmol/L (21-32) 11/23/23 20:14 POC Total CO2 25 mmol/L (24-31) 11/23/23 20:36 Anion Gap 10 (3-11) 11/23/23 20:14 POC Anion Gap 17.0 mmol/L (16-25) 11/23/23 20:36 POC BUN 13 mg/dl (7-18) 11/23/23 20:36 BUN 14 mg/dl (6-23) 11/23/23 20:14 Creatinine 0.59 mg/dl (0.6-1.2) L 11/23/23 20:14 POC Creatinine 0.6 mg/dl (0.6-1.3) 11/23/23 20:36 Est Cr Clr Drug Dosing 48.7 ml/min 11/23/23 20:14 Est GFR ( Amer) 95.5 ml/min 11/23/23 20:14 Est GFR (Non-Af Amer) 82.4 ml/min 11/23/23 20:14 BUN/Creatinine Ratio 23.7 (10-20) H 11/23/23 20:14 Glucose 127 mg/dl (70-99(Fasting)) H 11/23/23 20:14 POC Glucose (other) 113 mg/dl (70-99) H 11/23/23 20:36 Calcium 9.2 mg/dl (8.6-10.3) 11/23/23 20:14 POC Ioniz Calcium Susan 1.17 mmol/l (1.12-1.32) 11/23/23 20:36 Magnesium 1.9 mg/dl (1.7-2.4) 11/23/23 20:14 Total Bilirubin 1.2 mg/dl (0.2-1.0) H 11/23/23 20:14 AST 28 U/L (13-39) 11/23/23 20:14 ALT 20 U/L (7-52) 11/23/23 20:14 Alkaline Phosphatase 58 U/L (34-104) 11/23/23 20:14 Troponin I High Sens 7.8 pg/ml (0-14) 11/23/23 20:14 Total Protein 7.3 gm/dl (6.0-8.3) 11/23/23 20:14 Albumin 4.5 gm/dl (3.4-5.0) 11/23/23 20:14 Globulin 2.8 gm/dl (2.5-4.0) 11/23/23 20:14 Albumin/Globulin Ratio 1.6 (0.9-2) 11/23/23 20:14 Urine Color Yellow 11/23/23 21:57 Urine Appearance Clear (Clear) 11/23/23 21:57 Urine pH 7.5 (4.5-7.5) 11/23/23 21:57 Ur Specific Gillespie 1.019 (1.000-1.030) 11/23/23 21:57 Urine Protein Negative (Negative) 11/23/23 21:57 Urine Glucose (UA) Negative (Negative) 11/23/23 21:57 Urine Ketones Negative (Negative) 11/23/23 21:57 Urine Blood Negative (Negative) 11/23/23 21:57 Urine Nitrite Negative (Negative) 11/23/23 21:57 Urine Bilirubin Negative (Negative) 11/23/23 21:57 Urine Urobilinogen Negative (Negative) 11/23/23 21:57 Ur Leukocyte Esterase Negative (Negative) 11/23/23 21:[address] 11/23/23 20:09 CT angio neck with con, CT head/brain wo con, CT angio head w con CLINICAL HISTORY: neuro deficit, acute stroke suspected TECHNIQUE: Contiguous axial CT images of the head were acquired from the base of the skull to the vertex without intravenous contrast administration. CT angiography of the head and neck was performed following intravenous administration of iodinated contrast. Coronal and sagittal MIPS were obtained from the axial data set and were submitted for review. Automated dose lowering techniques and/or adjustment according to patient size were utilized for this examination. All measurements were calculated based on NASCET criteria. CT DOSE: 877. mGy.cm Comparison: None available at the time of this dictation. FINDINGS: CT head: There is no acute intracranial hemorrhage or evidence of acute territorial infarction. No shift of the midline structures, mass effect, or extra-axial abnormalities are shown. Mild biapical scarring is seen. CTA Neck: A 3 vessel aortic arch is shown. There is no significant atherosclerotic plaque in the aortic arch or the origins of the innominate, left common carotid, and left subclavian arteries. There is mild calcified atherosclerotic plaque at the bifurcation of the right common carotid artery without hemodynamically significant flow stenosis. There is no dissection present. The left vertebral artery is dominant. CTA Head: The anterior and posterior cerebral circulations are patent. origin of the left posterior cerebral artery is seen. IMPRESSION: 1. No acute intracranial hemorrhage, evidence of acute territorial infarction, or other acute intracranial disease process. 2. No occlusion, hemodynamically significant stenosis, or dissection in the major cervical arteries. 3. No occlusion, hemodynamically significant stenosis, aneurysm, dissection, or arteriovenous malformation in the major intracranial arteries. Assessment of stenosis of the internal carotid arteries is based on NASCET criteria. ACT 112: Negative or not required by law. Electronically signed by: Thomas Leal M.D. 11/23/2023 9:19 PM Head CTA 11/23/23 20:09 CT angio neck with con, CT head/brain wo con, CT angio head w con CLINICAL HISTORY: neuro deficit, acute stroke suspected TECHNIQUE: Contiguous axial CT images of the head were acquired from the base of the skull to the vertex without intravenous contrast administration. CT angiography of the head and neck was performed following intravenous administration of iodinated contrast. Coronal and sagittal MIPS were obtained from the axial data set and were submitted for review. Automated dose lowering techniques and/or adjustment according to patient size were utilized for this examination. All measurements were calculated based on NASCET criteria. CT DOSE: 877. mGy.cm Comparison: None available at the time of this dictation. FINDINGS: CT head: There is no acute intracranial hemorrhage or evidence of acute territorial infarction. No shift of the midline structures, mass effect, or extra-axial abnormalities are shown. Mild biapical scarring is seen. CTA Neck: A 3 vessel aortic arch is shown. There is no significant atherosclerotic plaque in the aortic arch or the origins of the innominate, left common carotid, and left subclavian arteries. There is mild calcified atherosclerotic plaque at the bifurcation of the right common carotid artery without hemodynamically significant flow stenosis. There is no dissection present. The left vertebral artery is dominant. CTA Head: The anterior and posterior cerebral circulations are patent. origin of the left posterior cerebral artery is seen. IMPRESSION: 1. No acute intracranial hemorrhage, evidence of acute territorial infarction, or other acute intracranial disease process. 2. No occlusion, hemodynamically significant stenosis, or dissection in the major cervical arteries. 3. No occlusion, hemodynamically significant stenosis, aneurysm, dissection, or arteriovenous malformation in the major intracranial arteries. Assessment of stenosis of the internal carotid arteries is based on NASCET criteria. ACT 112: Negative or not required by law. Electronically signed by: Thomas Leal M.D. 11/23/2023 9:19 PM Neck CTA 11/23/23 20:09 CT angio neck with con, CT head/brain wo con, CT angio head w con CLINICAL HISTORY: neuro deficit, acute stroke suspected TECHNIQUE: Contiguous axial CT images of the head were acquired from the base of the skull to the vertex without intravenous contrast administration. CT angiography of the head and neck was performed following intravenous administration of iodinated contrast. Coronal and sagittal MIPS were obtained from the axial data set and were submitted for review. Automated dose lowering techniques and/or adjustment according to patient size were utilized for this examination. All measurements were calculated based on NASCET criteria. CT DOSE: 877. mGy.cm Comparison: None available at the time of this dictation. FINDINGS: CT head: There is no acute intracranial hemorrhage or evidence of acute territorial infarction. No shift of the midline structures, mass effect, or extra-axial abnormalities are shown. Mild biapical scarring is seen. CTA Neck: A 3 vessel aortic arch is shown. There is no significant atherosclerotic plaque in the aortic arch or the origins of the innominate, left common carotid, and left subclavian arteries. There is mild calcified atherosclerotic plaque at the bifurcation of the right common carotid artery without hemodynamically significant flow stenosis. There is no dissection present. The left vertebral artery is dominant. CTA Head: The anterior and posterior cerebral circulations are patent. origin of the left posterior cerebral artery is seen. IMPRESSION: 1. No acute intracranial hemorrhage, evidence of acute territorial infarction, or other acute intracranial disease process. 2. No occlusion, hemodynamically significant stenosis, or dissection in the major cervical arteries. 3. No occlusion, hemodynamically significant stenosis, aneurysm, dissection, or arteriovenous malformation in the major intracranial arteries. Assessment of stenosis of the internal carotid arteries is based on NASCET criteria. ACT 112: Negative or not required by law. Electronically signed by: Thomas Leal M.D. 11/23/2023 9:19 PM ECG Additional Comments: ECG. Sinus rhythm with first-degree AV block with a rate of 91. QTc 432. Code Status & VTE Plan VTE Prophylaxis Plan VTE Prophylaxis will be ordered: Yes (1) CVA (cerebrovascular accident) CVA mechanism: unspecified Qualified Code(s): I63.9 - Cerebral infarction, unspecified
[2023-11-24] MEDS ORDERED: PHARMACIST DISCHARGE MED REC CONSULT PRN (00:34)
[2023-11-24] MEDS ORDERED: ACETAMINOPHEN 325 MG TAB PO PRN (00:34)
[2023-11-24] MEDS ORDERED: NITROGLYCERIN SL 0.4 MG/TAB TAB SL PRN (00:34)
[2023-11-24] MEDS: SODIUM CHLORIDE 0.9% 1,000 ML IV SCH (01:03)
[2023-11-24 05:01] LABS: Basophils # (auto) 0.06 K/uL (0.00-0.20); Basophils % (auto) 1.2 %; Eosinophils # (auto) 0.03 K/uL (0.00-0.50); Eosinophils % (auto) 0.6 %; Hematocrit (blood only) 31.6 % (37.0-47.0); Immature Granulocytes # (auto) 0.01 K/uL (0.01-0.20); Immature Granulocytes % (auto) 0.2 %; Lymphocytes # (auto) 1.48 K/uL (1.20-3.40); Lymphocytes % (auto) 28.4 %; Mean Corpuscular Hgb Conc 34.8 g/dL (32.0-36.0); Mean Corpuscular Volume 100.6 fL (80.0-100.0); Mean Platelet Volume 8.4 fL (9.4-12.4); Monocytes # (auto) 0.87 K/uL (0.11-0.59); Monocytes % (auto) 16.7 %; Neutrophils # (auto) 2.76 K/uL (1.40-6.50); Neutrophils % (auto) 52.9 %; Platelet Count 236 K/uL (130-400); RDW Coefficient of Variation 13.4 % (11.5-14.5); RDW Standard Deviation 50.2 fL (36.4-46.3); Red Blood Count 3.14 M/uL (4.20-5.40); White Blood Count 5.21 K/ul (4.8-10.8)
[2023-11-24 05:17] LABS: BUN Creatinine Ratio 20.4 (10-20); Calcium 8.6 mg/dl (8.6-10.3); Chol HDL Ratio 2.3 (0-5); Creatinine Clr Calc Pharmacy 57.3 ml/min; Est GFR (African American) 101.5 ml/min; Est GFR (Non-African American) 87.6 ml/min; Potassium 3.7 mmol/L (3.5-5.1)
--- OUTSIDE RECORDS SUMMARY | 2023-11-24 06:40 | External Medical Summary | Continuity of Care Document ---
Author Name Unknown Organization [facility] [address] 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 Name Role Phone Monique Nuñez Primary Care Physician [phone] Encounter [facility] [id number] Date(s): 08/30/23 - 08/30/23 [facility] [address] [address] [phone] Encounter Diagnosis Actinic keratoses(Discharge Diagnosis) - 08/30/23 Discharge Disposition: Home or Self Care Attending Physician: MD Deshpande Sara B Allergies, Adverse Reactions, Alerts Substance Reaction Severity Status sulfa drugs Tachycardia Active Cipro Diarrhea Active NSAIDs Nausea Active Flagyl Diarrhea Active Adhesive bandage skin irritation, erythema Active Assessment and Plan Extracted from: Title:Clinical Document Author:MD Jeramy, Lyubov Cast Date:08/30/23 OUTPATIENT NOTE Name: POORNIMA QUEZADA Patient Number: [id number] : 1935 Date of Service: 08/30/2023 Pt here for 2 ak left cheek left forehead. Ak x2. Lesions treated with liquid nitrogen. Patient aware of possibility of infection, hypo or hyperpigmentation or scarring and did elect to proceed. They should inform me of any problems or recurrences post treatment. Care sheet given. Immunizations Given and Recorded Vaccine Date Status Refusal Reason SARS-CoV-2 (COVID-19) mRNA-1273 vaccine 1 07/16/20 Recorded SARS-CoV-2 (COVID-19) mRNA-1273 vaccine 2 06/18/20 Recorded 1Result Comment: 2nd Dose - Lot# [id number] 2Result Comment: 1st Dose - Lot# [id number] Medications Arimidex 1 mg oral tablet Start: 10/27/21 10:59:00 EDT, 1 tab, PO, Daily Start Date: 10/27/21 Status: Ordered calcium (as carbonate) 500 mg oral tablet Start: 10/27/21 11:00:00 EDT Start Date: 10/27/21 Status: Ordered clindamycin 1% topical gel Start: 10/25/22 11:11:00 EDT, 1 appl, topical, bid, Disp# 30 g, Refills: 1, To pimply areas BID PRN, Pharmacy: [id number] Start Date: 10/25/22 Status: Ordered Probiotic Formula Start: 06/01/15 9:58:00, 1 cap/dose unknown, PO, Daily Start Date: 06/01/15 Status: Ordered Tums 500 mg oral tablet, chewable Start: 10/27/21 11:00:00 EDT, 1 tab, bid Start Date: 10/27/21 Status: Ordered Vitamin D3 400 intl units (10 mcg) oral tablet Start: 10/27/21 11:00:00 EDT, 1 tab, PO, Daily Start Date: 10/27/21 Status: Ordered Mental Status 08/30/23 Barriers to Learning one year None evide nt Mandatory Health Literacy Documentation Yes Health Literacy Communication Barriers N ever Primary Language Indian Problem List Condition Confirmation Course Effective Dates Status Health St atus Informant Actinic keratosis Confirmed Active Costal chondritis Confirmed Active History of Clostridium difficile Confirmed 2013 Active History of malignant basal cell neoplasm of skin Confirmed Active History of malignant neoplasm of skin Confirmed Active Rosacea Confirmed Active Seborrheic keratoses Confirmed Active Sun-damaged skin Confirmed Active Diagnosis Diagnosis Type Effective Dates Health Status inical Service Informant Actinic keratoses Discharge Diagnosis 08/30/23 Procedures Procedure Date Related Diagnosis Body Site Status Hip injury 05/2018 Completed Shave biopsy and cauterization of skin 11/30/17 Completed Shave biopsy and cauterization of skin 07/13/16 Completed Shave biopsy of skin 12/03/15 Comp leted Mohs micrographic surgery 07/01/15 Completed Electrodesiccation with curettage 06/08/15 Completed Shave biopsy 06/01/15 Completed Cardiac catheterization 01/2015 C ompleted Colonoscopy 04/24/13 Completed Mohs micrographic surgery 09/2012 Completed hernia repair [address] - Computerized tomography 2 Completed Hysterectomy 3 Completed Surgery Completed , 2001 2March 2012 3mid 1980s Social History Social History Type Response Smoking Status Never smoked cigaret jelly Sex Female Outpt Note * MD Jeramy, Octavia Cast: PERFORM Event Display: Outpt Note Authored Date: [id number] OUTPATIENT NOTE Name: POORNIMA QUEZADA Patient Number: [id number] : 1935 Date of Service: 08/30/2023 Pt here for 2 ak left cheek left forehead. Ak x2. Lesions treated with liquid nitrogen. Patient aware of possibility of infection, hypo or hyperpigmentation or scarring and did elect to proceed. They should inform me of any problems or recurrences post treatment. Care sheet given. Electronic Signature on File Electronically Reviewed/Signed by: Octavia Deshpande MD Author Signature Dt/Tm:08/30/2023 01:02 PM Department of Dermatology [facility] Patient Care team information Care Team Personnel Name: DO Nuñez Amanda Mae Position: Referring DIRECT Member Role: Primary Care Provider Address: Address: [address] [place] [address] [place] Care Team Related Persons Name: CHESTER ALTAMIRANO Address: home [address] [place], [place] [phone] Name: CHESTER ALTAMIRANO Address: home [address] [place] [address] Name: ASHTYN QUEZADA Address: home [address] [place] [phone]
--- OUTSIDE RECORDS SUMMARY | 2023-11-24 06:40 | External Medical Summary | Continuity of Care Document ---
Author Name Unknown Organization [facility] [address] [facility] [address] [phone] Care Team Providers Care Field Training Manager Name Role Phone Monique Nuñez Primary Care Physician [phone] Encounter [facility] KALI [phone] Date(s): 10/30/23 - 10/30/23 [facility] [address] [phone] Encounter Diagnosis History of malignant neoplasm of skin(Discharge Diagnosis) - 10/30/23 Rosacea(Discharge Diagnosis) - 10/30/23 Seborrheic keratoses(Discharge Diagnosis) - 10/30/23 Actinic keratoses(Discharge Diagnosis) - 10/30/23 Changing skin lesion(Discharge Diagnosis) - 10/30/23 Discharge Disposition: Home or Self Care Attending Physician: MD Deshpande Sara B Allergies, Adverse Reactions, Alerts Substance Criticality Severity Reaction Reaction Severity Status sulfa drugs Tachycardia Active Cipro Diarrhea Active NSAIDs Nausea Active Flagyl Diarrhea Active Adhesive bandage skin irrita tion, erythema Active Assessment and Plan Extracted from: Title:Dermatology Office Visit Note Author:Carlos germain MD, Sara B Date:10/30/23 1.History of malignant rahul plasm of skin Warning signs of skin cancer were reviewed. Sun protection reviewed. Follow-up in 12 months, sooner for any changing or growing lesions or acute concerns. I also recommended monthly self skin exams 2.Rosacea Chornic, at goal, cont clinda prn 3.Seborrheic keratoses Chornic,within normal limits 4.Actinic keratoses Very light and early- she prefers to follow, ones I froze are clear. 5.Changing skin lesion The area was identified and time out was completed. Verbal informed consent was obtained with the patient aware of the possibility of bleeding, scarring and infection and they did elect to proceed. The site was cleansed with alcohol and anesthetized with 1% lidocaine with epinephrine. Time out was performed and scanned into the patient's chart. Tangential shave biopsy was performed, hemostasis was achieved with cautery and the area was dressed with Vaseline and a bandage. Patient was given verbal and written instructions regarding wound care. My office will be in touch with results. Call with any problems.Photograph(s) was/were taken to document location and verbal informed consent was obtained to use the [employer] Camera Capture betzaida. Immunizations Given and Recorded Vaccine Date Status Refusal Reason SARS-CoV-2 (COVID-19) mRNA-1273 vaccine 1 07/16/20 Recorded SARS-CoV-2 (COVID-19) mRNA-1273 vaccine 2 06/18/20 Recorded 1Result Comment: 2nd Dose - Lot# [id number] 2Result Comment: 1st Dose - Lot# [id number] Medications Arimidex 1 mg oral tablet Start: 10/27/21 10:59:00 AM EDT, 1 tab, PO, Daily Start Date: 10/27/21 Status: Ordered calcium (as carbonate) 500 mg oral tablet Start: 10/27/21 11:00:00 AM EDT Start Date: 10/27/21 Status: Ordered clindamycin 1% topical gel Start: 10/25/22 11:11:00 AM EDT, 1 appl, topical, bid, Disp# 30 g, Refills: 1, To pimply areas BID PRN, Pharmacy: [id number] Start Date: 10/25/22 Status: Ordered Probiotic Formula Start: 06/01/15 9:58:00 AM EST, 1 cap/dose unknown, PO, Daily Start Date: 06/01/15 Status: Ordered Tums 500 mg oral tablet, chewable Start: 10/27/21 11:00:00 AM EDT, 1 tab, bid Start Date: 10/27/21 Status: Ordered Vitamin D3 400 intl units (10 mcg) oral tablet Start: 10/27/21 11:00:00 AM EDT, 1 tab, PO, Daily Start Date: 10/27/21 Status: Ordered Mental Status 10/30/23 Barriers to Learning one year None evide nt Mandatory Health Literacy Documentation Yes Health Literacy Communication Barriers N ever Primary Language Malawian Problem List Condition Confirmation Course Effective Dates Status Health St atus Informant Actinic keratosis Confirmed Active Changing skin lesion Confirmed Active Costal chondritis Confirmed Active History of Clostridium difficile Confirmed 2013 Active History of malignant basal cell neoplasm of skin Confirmed Active History of malignant neoplasm of skin Confirmed Active Rosacea Confirmed Active Seborrheic keratoses Confirmed Active Sun-damaged skin Confirmed Active Diagnosis Diagnosis Type Effective Dates Health Status Clinical Service Informant Seborrheic keratoses Discharge Diagnosis 10/30/23 Actinic keratoses Discharge Diagnosis 10/30/23 History of malignant neoplasm of skin Discharge Diagnosis 10/30/23 Changing skin lesion Discharge Diagnosis 10/30/23 Rosacea Discharge Diagnosis 10/30/23 Procedures Procedure Date Related Diagnosis Body Site Status Shave biopsy and cauterization of skin 10/30/23 Completed Hip injury 05/2018 Completed Shave biopsy and [...] 2 Completed Hysterectomy 3 Completed Surgery Completed 2001 2March 2012 3mid Social History Social History Type Response Smoking Status Never smoked cigaret jelly Sex Female Dermatology Outpatient Note * MD Jeramy, Octavia B: PERFORM Event Display: Dermatology Outpt Note Authored Date: Chief Complaint Yearly skin check - area on scalp History of Present Illness The patient is a pleasant 86-year-old femalehere for skin check. Had some actinic keratoses froze last month [place]:a history of 4 basal cells, right med cheek MOHS 2015, left calf ED&C 2015, on the nasal root and the leg in the past. Also BCC right skin tx ED&C summer 2017. Physical Exam Gen: Well appearing patient, no acute distress. Alert and oriented x3. Good mood. Skin examination completed of face, eyelids, scalp, hair, lips, ears, neck, chest, back, abdomen,upper and lower extremities bilaterally including hands, feet, fingers and toes, fingernails and toenails, pt declined bra area buttocks and groin. 4mm horn left scalp 13 cm from SALE at 1 oclock.Scattered flesh colored to brown greasy keratotic plaques consistent with seborrheic keratoses.No evidence recurrent skin cancer. Few very light Akon cheeks( pt prefers to monitor). Assessment/Plan 1.History of malignant neoplasm of skin Warning signs of skin cancer were reviewed. Sun protection reviewed. Follow-up in 12 months,sooner for any changing or growing lesions or acute concerns. I also recommended monthly self skin exams 2.Rosacea Chornic, at goal, cont clinda prn 3.Seborrheic keratoses Chornic,within normal limits 4.Actinic keratoses Very light and early- she prefers to follow, ones I froze are clear. 5.Changing skin lesion The area was identified and time out was completed. Verbal informed consent was obtained with the patient aware of the possibility of bleeding, scarring and infection and they did elect to proceed. The site was cleansed with alcohol and anesthetized with 1% lidocaine with epinephrine. Time out was performed and scanned into the patient's chart. Tangential shave biopsy was performed, hemostasis was achieved with cautery and the area was dressed with Vaseline and a bandage. Patient was given verbal and written instructions regarding wound care. My office will be in touch with results.Call with any problems.Photograph(s) was/were taken to document location and verbal informed consent was obtained to use the [employer] Camera Capture betzaida. Problem List/Past Medical History Ongoing Actinic keratosis Changing skin lesion Costal chondritis History of Clostridium difficile History of malignant basal cell neoplasm of skin History of malignant neoplasm of skin Rosacea Seborrheic keratoses Sun-damaged skin Resolved Basal cell carcinoma of left lower leg Basal cell carcinoma of right cheek BCC (basal cell carcinoma of skin) Neoplasm of uncertain behavior of skin Procedure/Surgical History Hip injury| Service Date: 05/2018Shave biopsy and cauterization of skin| Service Date: 11/30/2017Shave biopsy and cauterization of skin| Service Date: 07/13/2016Shave biopsy of skin| Service Date: 12/03/2015Mo micrographic surgery| Service Date: 07/01/2015Electrodesiccation withcurettage| Service Date: 06/08/2015Shave biopsy| Service Date: 06/01/2015Cardiac catheterization| Service Date: 01/2015Colonoscopy| Service Date: 04/24/2013[facility] micrographic surgery| Service Date: 09/2012hernia repair| Service Date: 2000CT - Computerized tomographyHysterectomySurgery Medications anastrozole(Arimidex 1 mg oral tablet), 1 mg= 1 tab, PO, Daily bifidobacterium-lactobacillus(Probiotic Formula), 1 cap/dose unknown, PO, Daily calcium carbonate(Tums 500 mg oral tablet, chewable), 500 mg= 1 tab, bid calcium carbonate(calcium (as carbonate) 500 mg oral tablet) cholecalciferol(Vitamin D3 400 intl units (10 mcg) oral tablet), 10 mcg= 1 tab, PO, Daily clindamycin topical(clindamycin 1% topical gel), 1 appl, topical, bid, 1 refills Allergies Adhesive bandageskin irritation, erythema CiproDiarrhea FlagylDiarrhea NSAIDsNausea sulfa drugsTachycardia Social History Smoking Status Never smoked cigarettes Electronic Signature on File Electronically Reviewed/Signed by: Octavia Deshpande MD Author Signature Dt/Tm:10/30/2023 11:41 AM Department of Dermatology [facility] Patient Care team information Care Team Personnel Name: DO Nuñez Amanda Mae Position: Referring DIRECT Member Role: Primary Care Provider Address: Address: [address] [place] [address] Care Team Related Persons Name: CHESTER ALTAMIRANO Address: home [address], [place] [phone] Name: CHESTER ALTAMIRANO Address: home [address] [place] [address] Name: ASHTYN QUEZADA Address: home [address] [place] [phone]"
--- NOTE | 2023-11-24 07:06 | XRay Report ---
XR chest 1V portable CLINICAL HISTORY: neuro deficit, acute stroke suspected COMPARISON STUDY: Chest radiograph June 17, 2018. FINDINGS: Lung volumes are normal. Lungs are clear. There is no pneumothorax or pleural effusion. Car diac size is normal. Mediastinal contours are normal. There is no evidence for pulmonary edema. Old, healed proximal left humeral fracture is noted. IMPRESSION: No acute cardiopulmonary findings. ACT 112: Negative or not required by law. Electronically signed by: Regis Brush M.D. 11/24/2023 7:05 AM
[2023-11-24 07:11] LABS: Estimated Average Glucose 120 mg/dl; Hemoglobin A1C 5.8 % (4.5-5.6)
--- NOTE | 2023-11-24 08:30 | Neurology Consultation ---
Date of Consultation November 24, 2023 Assessment & Plan (1) CVA (cerebrovascular accident): History of Present Illness Attending Physician: Eliza Ardon MD History of Present Illness S: pt this morning feeling well. no symptoms. mri brain reviewed, ischemic small left subcortical subacute appearing stroke. Admission HPI: 87-year-old female with past medical history significant for irritable bowel syndrome with diarrhea, age-related osteoporosis, history of C. 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 Last Monday patient had some difficulty speaking and felt her tongue was numb. But she was able to eat and drink okay. Slight dizziness but she was able to ambulate okay.No headaches .By the next morning the symptoms resolved. She called her PCP on Monday.Outpatient workup was done with carotid Dopplers and MRI scan. MRI brain showed small acute to early subacute infarct of the left chao radiata and she was advised to come to the hospital. Both her daughters are physicians. One of her daughter is in the room. Patient current ly resting comfortably and hemodynamically stable. Currently speech is okay. No facial droop seen. Denies any headache. No blurred visions. No runny nose no sore throat. No cough. No chest pain or shortness of breath. No nausea or vomiting. No abdominal pain. She has alternating diarrhea and constipation. No blood in the stools. Micturating okay. No swelling in the legs. Acute/subacute CVA had some tongue numbness and trouble speaking last Monday which resolved by Monday. Currently doing fine. Outpatient MRI showed small acute to early subacute infarct of the left chao radiata ER started on aspirin will be continued. Will also start on statin. Neurochecks. speech and PT OT evaluation CTA head and neck okay in the ER. Telemonitoring will follow echo consult neurology in a.m. for further recommendations history of right breast cancer s/p mastectomy on anastrozole which will be held follows with heme-onc Allergies Allergy/AdvReac Type Severity Reaction Status Date / Time Cipro Allergy Unknown STOMACH Verified 04/26/17 21:15 PAINS ciprofloxacin AdvReac Unknown STOMACH Verified 11/23/23 20:30 PAINS metronidazole AdvReac Unknown STOMACH/DIGESTIVE Verified 11/23/23 20:30 PAIN NSAIDS (Non-Steroidal AdvReac Unknown STOMACH Verified 11/23/23 20:30 Anti-Inflamma PAIN Sulfa (Sulfonamide AdvReac Unknown SEVERE Verified 11/23/23 20:30 Antibiotics) STOMACH PAINS Home Medications Medication Instructions Recorded Confirmed Type lactobacillus combination no.4 3 3,000 mmu cells PO QAM 06/04/21 11/23/23 History billion cell capsule (Probiotic) famotidine 20 mg PO DAILY PRN GERD 06/07/21 11/23/23 History anastrozole 1 mg tablet 1 mg PO DAILY 11/23/23 11/23/23 History calcium carbonate (Tums) 200 mg PO BID 11/23/23 11/23/23 History Patient History Medical History History of Clostridioides difficile infection 2018 GERD (gastroesophageal reflux disease) controlled, stable per pt Surgical History History of open reduction and internal fixation (ORIF) procedure RIGHT HIP-06/18/2018: SAB at L3-L4, 1 attempt. No issues per anesthesia postop progress note. History of anesthesia reaction WITH HERNIA REPAIR [facility] ANESTHESIA-HOARSENESS FOR AWHILE-PT REQUESTING USE OF LMA FOR SURGERY History of lumpectomy of left breast BENIGN History of esophagogastroduodenoscopy (EGD) History of colonoscopy H/O hernia repair X 2 History of hysterectomy Family History Sister Family history of diabetes mellitus Other Family history non-contributory Social History Smoking Status: Never smoker Second Hand Exposure: Yes ( A CHILD/AT WORK IN THE PAST); Do You Dip or Chew Tobacco: No; Hx Alcohol Use: No Hx Substance Use: No Preferred Language: Indonesian Communication Ability: Effective Steam Meter Reader Required: No Beliefs That Will Affect Care: None marital status: Current Living Situation: Alone current occupational status: retired Feels Safe at Home: Yes Safety Concerns: Feels Safe At This Time Assistive Devices: None Assistive Devices Comment: Reading glasses Review of Systems Review of Systems: All systems reviewed & are unremarkable except as noted in Subjective Constitutional: as per Subjective / HPI Eyes: as per Subjective / HPI Ear, Nose, Mouth, Throat: as per Subjective / HPI Respiratory: as per Subjective / HPI Cardiovascular: as per Subjective / HPI Gastrointestinal: as per Subjective / HPI Musculoskeletal: as per Subjective / HPI Integumentary: as per Subjective / HPI Neurologic: as per Subjective / HPI Psychiatric: as per Subjective / HPI Endocrine: as per Subjective / HPI Hematologic / Lymphatic: as per Subjective / HPI Allergy / Immunological: as per Subjective / HPI Exam (Neuro) Physical Exam: HEENT: normocephalic Neuro: Mental: AOx4, fluent speech, normal comprehension, no apraxia, no L/R confusion, no neglect CN: PERRL, Full EOM, symmetric face, midline T/U/P, 5/5 SCM/traps. Motor: No abnormal movements, normal tone and bulk, 5/5 t/o bilaterally Sens: intact to touch b/l grossly Coord: intact FNT b/l DTR: 2+ sym b/l Impression: 87 yo female with subacute left subcortical ischemic stroke with normal neuro exam. pt clinically doing well . Recommendations: 1. pending echo result. 2. antiplatelet therapy: ASA 81mg po daily is ok at this point given her low ABCD2 score and age. 4. no need for Permissive Hypertension 6. Long-term SBP goal less than 130. Avoid hypovolemia and hypotension. 9. Avoid hypoglycemia, serum glucose goa l during hospitalization: 140-180. 10. Long-term HgA1c goal less than 7. 11. Start statin if not on it and no abs olute contraindication, long-term LDL goal less than 70. 12. Head of bed up 30 degrees if possibl e. 14. reocmmend shelter cardiac monitori ng, i.e. MCOT (mobile cardiac outpatient telemetry) or ICM (insertable rn cardiac rehab, e.g. [facility]), if never had territory development manager cardiac monitoring done previously. And if found to have atrial flutter or fibrillation, should consider anticoagulation therapy if no contraindication. 15. Fall precaution and aspiration preca ution. once echo is negative, she can be discharged. discussed with her daughter (physician) this morning. she can f/u with her PCP for stroke risk modifications as above. call again if new question. Chart reviewed I have spent more than 50% educating patient about potential diagnosis and neurological evaluation and coordinating care with patient's treatment team. Total time spent (including chart review and coordination of care): 60 min (this includes chart review). Results & Data Vital Signs (Past 12 Hours) Vital Signs Temp Pulse Pulse Resp BP BP Pulse Ox 11/24/23 02:54 36.5 C 85 16 125/74 97 11/24/23 02:10 11/24/23 00:30 96 H 11/24/23 00:25 36.6 C 83 18 144/69 H 99 11/24/23 00:03 73 15 132/64 98 11/23/23 22:44 82 18 140/71 98 O2 Del Method 11/24/23 02:54 Room Air 11/24/23 02:10 Room Air 11/24/23 00:30 11/24/23 00:25 Room Air 11/24/23 00:03 Room Air 11/23/23 22:44 Room Air PG Care Time/CCT Total # of Minutes Spent Total Time Spent with Patient: Total time spent is greater than 50% in coordination of care (as documented) at patient's floor/unit and/or counseling patient: Coding Level of Care Code 33415 IN/OBS CONSULT LVL 4,60M Diagnoses CVA (cerebrovascular accident) I63.9 CVA mechanism: unspecified (1) CVA (cerebrovascular accident) CVA mechanism: unspecified Qualified Code(s): I63.9 - Cerebral infarction, unspecified
--- NOTE | 2023-11-24 08:31 | Electrocardiogram Report ---
Test Reason : Blood Pressure : / mmHG Vent. Rate : 091 BPM Atrial Rate : 091 BPM P-R Int : 232 ms QRS Dur : 084 ms QT Int : 352 ms P-R-T Axes : 068 037 057 degrees QTc Int : 432 ms Sinus rhythm with 1st degree A-V block Old Septal infarct (cited on or before 17-JUN-2018) Abnormal ECG When compared with ECG of 07-JUN-2021 11:17, NM interval has increased Confirmed by Rosalio Solano ([id number]) on 11/24/2023 8:31:10 AM Referred By: REFERRED SELF Confirmed By:Rosalio Solano
[2023-11-24] MEDS: ASPIRIN 81 MG ECTAB PO SCH (10:04)
[2023-11-24] MEDS: ROSUVASTATIN CALCIUM 20 MG TAB PO SCH (10:56)
--- NOTE | 2023-11-24 12:47 | Communication Note ---
Date of Service: November 24, 2023 By CMS guidelines, a determination that the admission or continued stay is not medically necessary has been made by a member of the UR committee and a physi veronica for this hospital stay, therefore a Code 44 will be completed and the Inpatient admission will be changed to outpatient.
--- NOTE | 2023-11-24 12:51 | Discharge Summary ---
Date of Service November 24, 2023 Admission HPI Per Admitting Provider 87-year-old female with past medical history significant for irritable bowel syndrome with diarrhea, age-related osteoporosis, history of C. 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 Last Monday patient had some difficulty speaking and felt her tongue was numb. But she was able to eat and drink okay. Slight dizziness but she was able to ambulate okay.No headaches .By the next morning the symptoms resolved. She called her PCP on Monday.Outpatient workup was done with carotid Dopplers a nd MRI scan. MRI brain showed small acute to early subacute infarct of the left chao radiata and she was advised to come to the hospital. Both her daughters are physicians. One of her daughter is in the room. Patient currently resting comfortably and hemodynamically stable. Currently speech is okay. No facial droop seen. Denies any headache. No blurred visions. No runny nose no sore throat. No cough. No chest pain or shortness of breath. No nausea or vomiting. No abdominal pain. She has alternating diarrhea and constipation. No blood in the stools. Micturating okay. No swelling in the legs. Past medical history. As mentioned above past surgical history. Right breast biopsy. Right radical mastectomy. Radical hysterectomy. Bilateral cataracts. Left inguinal hernia repair. Social history. . No smoking. No alcohol. No drug use. Family history. Daughter has breast cancer. Admission Exam Per Admitting Provider General- Not in distress Head- atraumatic Eyes- PERRL. ENT- oropharynx clear Neck- supple, no JVD. Lungs- clear to auscultation no wheezing or crackles. Heart- regular rate and rhythm; no murmur, no gallop. Abdomen- normal bowel sounds, soft, nontender, no distension. Extremities- no pretibial edema, no erythema seen. Neuro- alert, oriented PERRL, EOMI; no facial palsy; no dysarthria; motor 5/5 bilaterally; coordination of movements normal, no pronator drift sensations intact. Skin- warm & dry Principal Diagnosis Acute versus subacute CVA Discharge Exam General- Not in distress Head- atraumatic Eyes- PERRL. ENT- oropharynx clear Neck- supple, no JVD. Lungs- clear to auscultation no wheezing or crackles. Heart- regular rate and rhythm; no murmur, no gallop. Abdomen- normal bowel sounds, soft, nontender, no distension. Extremities- no pretibial edema, no erythema seen. Neuro- alert, oriented PERRL, EOMI; no facial palsy; no dysarthria; motor 5/5 bilaterally; coordination of movements normal, no pronator drift sensations intact. Skin- warm & dry Discharge Data Allergies Allergy/AdvReac Type Severity Reaction Status Date / Time Cipro Allergy Unknown STOMACH Verified 04/26/17 21:15 PAINS ciprofloxacin AdvReac Unknown STOMACH Verified 11/23/23 20:30 PAINS metronidazole AdvReac Unknown STOMACH/DIGESTIVE Verified 11/23/23 20:30 PAIN NSAIDS (Non-Steroidal AdvReac Unknown STOMACH Verified 11/23/23 20:30 Anti-Inflamma PAIN Sulfa (Sulfonamide AdvReac Unknown SEVERE Verified 11/23/23 20:30 Antibiotics) STOMACH PAINS Consultations 11/23/23 22:07 ED Decision to Admit Stat 11/24/23 08:00 Consult Neurology Routine Ordered Studies 11/23/23 20:09 CT angio head w con Stat CT angio neck with con Stat CT head/brain wo con Stat Hospital Course (1) CVA (cerebrovascular accident): per prior attending with addendum: 87-year-old female with past medical history significant for irritable bowel syndrome with diarrhea, age-related osteoporosis, history of C. 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 Last Monday patient had some difficulty speaking and felt her tongue was numb. But she was able to eat and drink okay. Slight dizziness but she was able to ambulate okay.No headaches .By the next morning the symptoms resolved. She called her PCP on Monday.Outpatient workup was done with carotid Dopplers and MRI scan. MRI brain showed small acute to early subacute infarct of the left chao radiata and she was advised to come to the hospital. Both her daughters are physicians. One of her daughter is in the room. Patient currently resting comfortably and hemodynamically stable. Currently speech is okay. No facial droop seen. Denies any headache. No blurred visions. No runny nose no sore throat. No cough. No chest pain or shortness of breath. No nausea or vomiting. No abdominal pain. She has alternating diarrhea and constipation. No blood in the stools. Micturating okay. No swelling in the legs. Acute/subacute CVA had some tongue numbness and trouble speaking last Monday which resolved by Monday. Currently doing fine. Outpatient MRI showed small acute to early subacute infarct of the left chao radiata ER started on aspirin will be continued. Will also start on statin. Neurochecks. speech and PT OT evaluation CTA head and neck okay in the ER. Telemonitoring will follow echo consult neurology in a.m. for further recommendations history of right breast cancer s/p mastectomy on anastrozole which will be held follows with heme-onc DVT prophylaxis SCDs disposition telemetry full code Addendum 11/24/2023: Patient was seen and examined at bedside as a follow-up of acute versus subacute CVA. A1c 5.8 and LDL 100. Patient's daughter who is also a physician was at bedside. They were updated on plan of care. Neurology's recommendations reviewed. Patient will be discharged on baby aspirin and rosuvastatin. Patient reports feeling better, denies any new weakness or numbness or tingling or any other neurological symptoms. Patient is hemodynamically stable and would like to go home as soon as possible. Echo was done, report reviewed. There is an incidental small loculated pericardial effusion adjacent to right ventricle, no need for additional workup per my discussion with cardiology. She is being discharged with following instruction at the point of discharge: Follow-up with your primary care physician within a week time and likely you will need labs CBC/CMP/magnesium/phosphorus. You will be started on baby aspirin and statin, you will need repeat lipid profile in about 3 months time and liver function test in about 1 month's time. Coordinate with your PCP office to set up the test. You will benefit from Zio patch monitoring upon discharge, coordinate with your PCP office to set up the test. Take your medications as prescribed. Please make sure that you are able to get your medications today by calling your pharmacy before you leave the hospital so that your treatment continuity is not broken. By CMS guidelines, a determination that the admission or continued stay is not medically necessary has been made by a member of the Utilization Review committee and a physician for this hospital stay. Therefore, a Code 44 will be completed and the inpatient admission will be changed to outpatient. Home Health Attestation I certify that this patient is under my care and that I, or a physicians recycling assistant working with me, had a face to-face encounter that meets the home health [id number] encounter requirements with this patient. The encounter with the patient was in whole, or in part, for the following medical condition, which is the primary reason for home health care (list medical condition): I certify that, based on my findings, the following services are medically necessary home health services: My clinical findings support the need for the above services because: Further, I certify that my clinical findings support that this patient is homebound (i.e. absences from home require considerable and taxing effort and are for medical reasons or scientology services or infrequently or of short duration when for other reasons) because: Certification for Home Health Services: Based on the above findings, I certify that this patient is confined to the home and needs intermittent snf care, physical therapy and/or speech therapy or continues to need occupational therapy. The patient is under my care, and I have initiated the establishment of the plan of care. This patient will be followed by a physician who will periodically review the plan of care. Total Time Total Time Spent Total Time Spent (In Minutes): 45 Discharge Plan Discharge Items Patient Disposition: Home - Self-Care Reason For Visit: CVA Discharge Diagnosis: Acute/subacute CVA Activity: Resume your previous activity Non-emergency contact: Primary Care Provider Call non-emergency contact if: you have any medication questions, your symptoms worsen and your temperature is above 101.5 Follow-up/Referrals: Monique Nuñez DO [Primary Care Provider] - Diet: Heart Healthy Addtl Attending Provider Instructions: Follow-up with your primary care physician within a week time and likely you will need labs CBC/CMP/magnesium/phosphorus. You will be started on baby aspirin and statin, you will need repeat lipid profile in about 3 months time and liver function test in about 1 month's time. Coordinate with your PCP office to set up the test. You will benefit from Zio patch monitoring upon discharge, coordinate with the PCP office to set up the test. Take your medications as prescribed. Please make sure that you are able to get your medications today by calling your pharmacy before you leave the hospital so that your treatment continuity is not broken. Pending Studies at Discharge: No Stand-Alone Forms: [facility], Smoking Cessation Medications and DC Order Prescriptions: New rosuvastatin 20 mg Tablet 20 mg PO QAM Qty: 30 0RF aspirin 81 mg Tablet,Delayed Release (Dr/Ec) 81 mg PO QAM Qty: 30 0RF Continued Probiotic 3 billion cell Capsule 3,000 mmu cells PO QAM famotidine tablet 20 mg PO DAILY PRN (Reason: GERD) anastrozole 1 mg tablet 1 mg PO DAILY calcium carbonate [Tums] 200 mg calcium (500 mg) Tablet,Chewable 200 mg PO BID Discharge Orders: Discharge Order (Routine); Ordered 11/24/23 Ordered By: Eliza Ardon Admission Data Admit Date/Time: 11/23/23 23:22 Attending Provider: Eliza Ardon Admit Provider: Hua Shafer Primary Care Provider: Monique Nuñez Other Providers: Hua Shafer; Yahir Santana
[2023-11-24] MEDS: STROKE PATIENT DISCHARGE STA (13:35)
--- NOTE | 2023-11-24 14:34 | Pharmacy Report ---
- Date of Service November 24, 2023 - Pharmacy CVA/TIA Medication Review Medications to Prevent Stroke handout has been added to the patients discharge packet. Antiplatelet(s) * Asa 81 mg Cholesterol * High intensity statin: rosuvastatin 20 mg daily DVT Prophylaxis * SCD thigh Therapeutic Anticoagulation * No history of Afib/Aflutter noted Type 2 Diabetes * Patient does not have T2DM
== END 2023-11-24 03:00 | disposition home or self-care (01) | DRG 66 ==
LOC: ED 19:52 → 4W 23:22 → INTOOBSV 23:22 → 4W 11-24 02:10

== ENCOUNTER 2024-09-04 06:19 | Observation (INO) ==
--- OUTSIDE RECORDS SUMMARY | 2024-09-04 06:25 | External Medical Summary | Continuity of Care Document ---
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 Name Role Phone Monique Nuñez Primary Care Physician [phone] Encounter [facility] [phone] Date(s): 06/25/24 - 06/25/24 [facility] [address] [facility] [address] [phone] Encounter Diagnosis History of basal cell carcinoma of skin(Discharge Diagnosis) - 06/25/24 Encounter for exam following cancer surgery(Discharge Diagnosis) - 06/25/24 Sun-damaged skin(Discharge Diagnosis) - 06/25/24 Seborrheic keratoses(Discharge Diagnosis) - 06/25/24 Actinic keratoses(Discharge Diagnosis) - 06/25/24 Solar purpura(Discharge Diagnosis) - 06/25/24 Discharge Disposition: Home or Self Care Attending Physician: MD Jeramy, Octavia Cast Allergies, Adverse Reactions, Alerts Substance Criticality Severity Reaction Reaction Severity Status sulfa drugs Tachycardia Active Cipro Diarrhea Active NSAIDs Nausea Active Flagyl Diarrhea Active Adhesive bandage skin irrita tion, erythema Active Assessment and Plan Extracted from: Title:Dermatology Office Visit Note Author:Carlos germain MD, Octavia B Date:06/25/24 1. History of basal cell ca rcinoma of skin Warning signs of skin cancer were reviewed. Sun protection reviewed. Follow-up in 6 months, sooner for any changing or growing lesions or acute concerns. I also recommended monthly self skin exams 2. Encounter for exam following cancer surgery Scars clear. Patient aware of increased risk. Call with any new or changing lesions 3. Sun-damaged skin Chronic, not at goal, continue sun protection level 30 or higher every 2 hours and since hats and glasses 4. Seborrheic keratoses Chronic, within normal limits today 5. Actinic keratoses X 4. Lesions treated with liquid nitrogen. Patient aware of possibility of infection, hypo or hyperpigmentation or scarring and did elect to proceed. They should inform me of any problems or recurrences post treatment. Care sheet given. 6. Solar purpura Worsening per patient. She points it out. I recommended moisturization twice a day. She can also try Arnica cream. Path though etiology was discussed Immunizations Given and Recorded Vaccine Date Status Refusal Reason SARS-CoV-2 (COVID-19) mRNA-1273 vaccine 1 07/16/20 Recorded SARS-CoV-2 (COVID-19) mRNA-1273 vaccine 2 06/18/20 Recorded 1Result Comment: 2nd Dose - Lot# [id number] 2Result Comment: 1st Dose - Lot# [id number] Medications Arimidex 1 mg oral tablet Start: 10/27/21 10:59:00 AM EDT, 1 tab, PO, Daily Start Date: 10/27/21 Status: Ordered Aspirin Low Dose 81 mg oral delayed release tablet TAKE ONE TABLET BY MOUTH TWICE DAILY Start Date: 12/20/23 Status: Ordered calcium (as carbonate) 500 mg oral tablet Start: 10/27/21 11:00:00 AM EDT Start Date: 10/27/21 Status: Ordered clindamycin 1% topical gel Start: 10/25/22 11:11:00 AM EDT, 1 appl, topical, bid, Disp# 30 g, Refills: 1, To pimply areas BID PRN, Pharmacy: [id number] Start Date: 10/25/22 Status: Ordered Probiotic Formula Start: 06/01/15 9:58:00 AM EST, 1 cap/dose unknown, PO, Daily Start Date: 06/01/15 Status: Ordered rosuvastatin 20 mg oral tablet Start: 12/20/23 8:43:00 AM EDT, 1 tab, PO, Daily Start Date: 12/20/23 Status: Ordered Tums 500 mg oral tablet, chewable Start: 10/27/21 11:00:00 AM EDT, 1 tab, bid Start Date: 10/27/21 Status: Ordered Vitamin D3 400 intl units (10 mcg) oral tablet Start: 10/27/21 11:00:00 AM EDT, 1 tab, PO, Daily Start Date: 10/27/21 Status: Ordered Mental Status 06/25/24 Barriers to Learning one year None evide nt Mandatory Health Literacy Documentation Yes Communication Barrier Present No Health Literacy Communication Barriers N ever Primary Language Pashto Problem List Condition Confirmation Course Effective Dates Status Health St atus Informant Actinic keratosis Confirmed Active Changing skin lesion Confirmed Active Costal chondritis Confirmed Active History of Clostridium difficile Confirmed 2013 Active Encounter for exam following cancer surgery Confirmed Active History of malignant basal cell neoplasm of skin Confirmed Active History of malignant neoplasm of skin Confirmed Active Rosacea Confirmed Active Seborrheic keratoses Confirmed Active Solar purpura Confirmed Active Sun-damaged skin Confirmed Active Diagnosis Diagnosis Type Effective Dates Health Status Clinical Service Informant Seborrheic keratoses Discharge Diagnosis 06/25/24 Actinic keratoses Discharge Diagnosis 06/25/24 Encounter for exam following cancer surgery Discharge Diagnosis 06/25/24 History of basal cell carcinoma of skin Discharge Diagnosis 06/25/24 Sun-damaged skin Discharge Diagnosis 06/25/24 Solar purpura Discharge Diagnosis 06/25/24 Procedures Procedure Date Related Diagnosis Body Site Status Mohs micrographic surgery 03/04/24 Completed Electrodesiccation with curettage 12/20/23 Completed Electrodesiccation with curettage 12/20/23 Completed Shave biopsy and cauterization of skin 10/30/23 [...] Completed Surgery Completed 2001 2March 2012 3mid 1980s Social History Social History Type Response Smoking Status Never smoked cigaret jelly Sex Female Sex Representation Female (finding) Dermatology Outpatient Note * MD Jeramy, Octavia Cast: PERFORM Event Display: Dermatology Outpt Note Authored Date: [id number] Chief Complaint Patient here for skin exam. Patient c/o area on scalp that was treated with mohs that she states has a scab. Patient c/o area on right religious and right garcia. Patient reports hx of skin ca. History of Present Illness The patient is a pleasant 88-year-old female here for skin check. Patient has a concern with the most spot on the scalp as well as on the right religious and right garcia today. Skin ca hx: a history of 4 basal cells, right med cheek MOHS 2016, left calf ED&C 2015, on the nasal root and the leg in the past. Also BCC right skin tx ED&C summer 2017. [1] He had a basal cell of her left medial hand and a squamous cell well- differentiated on the left wrist in November 2023. Both of these were treated with electrodesiccation and curettage at the time of the biopsy. Physical Exam Gen: Well appearing patient, no acute distress. Alert and oriented x3. Good mood. Skin examination completed of face, eyelids, scalp, hair, lips, ears, neck, chest, back, abdomen,upper and lower extremities bilaterally including hands, feet, fingers and toes, fingernails and toenails, pt declined buttocks and groin. Pt declined a county nurse. Patient has 2 actinic keratosis on her right lateral and right supra brow as well as 2 on her right garcia. She points out solar purpura on her lower legs. She does have sun damaged skin primarily on her face. Scattered seborrheic keratoses. No evidence of recurrent skin cancer including the ones most recently treated withelectrodesiccation and curettage. Scar from her Mohs looks good she just has a little crust. I recommended working at this gently in the shower. Assessment/Plan 1. History of basal cell carcinoma of skin Warning signs of skin cancer were reviewed. Sun protection reviewed. Follow-up in 6 months, sooner for any changing or growing lesions or acute concerns. I also recommended monthly self skin exams 2. Encounter for exam following cancer surgery Scars clear. Patient aware of increased risk. Call with any new or changing lesions 3. Sun-damaged skin Chronic, not at goal, continue sun protection level 30 or higher every 2 hours and since hats andglasses 4. Seborrheic keratoses Chronic, within normal limits today 5. Actinic keratoses X 4. Lesions treated with liquid nitrogen. Patient aware of possibility of infection, hypo or hyperpigmentation or scarring and did elect to proceed. They should inform me of any problemsor recurrences post treatment. Care sheet given. 6. Solar purpura Worsening per patient. She points it out. I recommended moisturization twice a day. She canalso try Arnica cream. Path though etiology was discussed Problem List/Past Medical History Ongoing Actinic keratosis Changing skin lesion Costal chondritis Encounter for exam following cancer surgery History of Clostridium difficile History of malignant basal cell neoplasm of skin History of malignant neoplasm of skin Rosacea Seborrheic keratoses Solar purpura Sun-damaged skin Resolved Basal cell carcinoma of left lower leg Basal cell carcinoma of right cheek BCC (basal cell carcinoma of skin) Neoplasm of uncertain behavior of skin Procedure/Surgical History •Mohs micrographic surgery| Service Date: 03/04/2024•Electrodesiccation with curettage| ServiceDate: 12/20/2023•Electrodesiccation with curettage| Service Date: 12/20/2023•Shave biopsy and cauterization of skin| Service Date: 10/30/2023•Hip injury| Service Date: 05/2018•Shave biopsy and cauterization of skin| Service Date: 11/30/2017•Shave biopsy and cauterization of skin| Service Date: 07/13/2016•Shave biopsy of skin| Service Date: 12/03/2015•Mohs micrographic surgery| Service Date: 07/01/2015•Electrodesiccation with curettage| Service Date: 06/08/2015•Shave biopsy| Service Date: 06/01/2015•Cardiac catheterization| Service Date: 01/2015•Colonoscopy| Service Date:04/24/2013•Mohs micrographic surgery| Service Date: 09/2012•hernia repair| Service Date: 1999•CT - Computerized tomography•Hysterectomy•Surgery Medications anastrozole(Arimidex 1 mg oral tablet), 1 mg= 1 tab, PO, Daily aspirin(Aspirin Low Dose 81 mg oral delayed release tablet) bifidobacterium-lactobacillus(Probiotic Formula), 1 cap/dose unknown, PO, Daily calcium carbonate(Tums 500 mg oral tablet, chewable), 500 mg= 1 tab, bid calcium carbonate(calcium (as carbonate) 500 mg oral tablet) cholecalciferol(Vitamin D3 400 intl units (10 mcg) oral tablet), 10 mcg= 1 tab, PO, Daily clindamycin topical(clindamycin 1% topical gel), 1 appl, topical, bid, 1 refills rosuvastatin(rosuvastatin 20 mg oral tablet), 20 mg= 1 tab, PO, Daily Allergies Adhesive bandage skin irritation, erythema Cipro Diarrhea Flagyl Diarrhea NSAIDs Nausea sulfa drugs Tachycardia Social History Smoking Status Never smoked cigarettes [1] Dermatology Office Visit Note; MD Jeramy, Octavia Cast 10/30/2023 11:41 EDT Electronic Signature on File Electronically Reviewed/Signed by: Octavia Deshpande MD Author Signature Dt/Tm:06/25/2024 11:26 AM Department of Dermatology [facility] Patient Care team information Care Team Personnel Name: DO Nuñez Amanda Mae Position: Referring DIRECT Member Role: Primary Care Provider Address: [address] [place] [address] [place] Care Team Related Persons Name: CHESTER ALTAMIRANO Name: CHESTER ALTAMIRANO Name: ASHTYN QUEZADA"
--- NOTE | 2024-09-04 07:24 | Emergency Department Note ---
Impression & Plan Palpitations, Chest pain ED Provider Note Provider: Johnathon Flores MD CHIEF COMPLAINT: Palpitations slight chest discomfort HISTORY OF PRESENT ILLNESS: Patient is a 88-year-old female past medical history significant for CVA as well as breast cancer presenting here today reporting over the past several weeks has been having increased episodes of palpitations. States noted last summer some episodes and had a monitor at that time. Follow- up with cardiology in April. Told her to monitor and utilize some cold to the face or neck and Valsalva type procedures of reoccurred. Again last of weeks has had increased episodes. Normally resolves with cold to the face or neck. Does try to bear down at times. No syncope. No recent illness. No medication changes. States normally happens at night. This occurred last night around midnight and resolved with her normal maneuvers. Lasted a few minutes. No syncope or trauma. Around 3 AM or so had return. Symptoms lasted least 30 minutes and did not seem to resolve with her normal cold or bearing down attempts. Did have some central to left breast discomfort with this. Symptoms then did finally resolved. Again no syncope. No trouble breathing. Pain-free currently. Denies palpitations currently. Given that she had the pain and had symptoms called 911 and came here for evaluation. Denies known cardiac history. No pain with breathing or movement. No GI upset or nausea or abdominal pain reported. Denies any new numbness or weakness PAST MEDICAL HISTORY: As noted above MEDICATIONS: Reviewed home medications include 81 mg aspirin SOCIAL HISTORY: Lives at home, non-smoker PHYSICAL EXAM: GENERAL: alert and oriented in no acute distress on stretcher Head: normocephalic and atraumatic EYES: No injection, discharge or icterus. NECK: Trachea midline. ENT: Mucous membranes pink and moist. LUNGS: Airway patent. No retractions. Breath sounds clear with good air entry bilaterally. HEART: Regular rate and rhythm. No chest wall tenderness ABDOMEN: Soft and non-tender, without guarding or rebound. SKIN: Acyanotic, warm, dry, without rashes EXTREMITIES: Without swelling, tenderness or deformity NEUROLOGICAL: No focal deficits. No aphasia. No facial droop or slurred speech Ambulatory. EK bpm sinus rhythm first-grade V-block. No PVC or PAC. No acute ST segment elevation or depression with a QTc of 426. CONTINUOUS CARDIAC MONITORING: was ordered and showed a heart rate of 70s to 90s bpm in normal sinus rhythm Patient's laboratory studies and imaging reviewed. Differential includes Premature contractions, electrolyte abnormality, cardiac dysrhythmia, thyroid dysfunction, pulmonary embolism, infection, gastrointestinal, as well as other pathologies. IMPRESSION/MEDICAL DECISION MAKING: Patient pain-free currently. EKG here with heart rate 100 bpm but no obvious ischemic changes/STEMI noted or significant arrhythmia. Denies shortness of breath. No swelling in no clinical evidence of heart failure. Basic blood work electrolytes and thyroid function are sent. Troponin sent as she had some chest discomfort earlier. Brief and likely related to elevated heart rate. 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 Seem to had a few very brief episodes at that time of NSVT as well as some brief episodes of SVT. Symptoms sound consistent with likely SVT. Unknown why at this time she is having more episodes. Chest x-ray obtained but denies infectious symptoms and do not see evidence of pneumonia or fluid overload. Blood work here today without significant anemia or leukocytosis. Very slight leukopenia. Borderline hyponatremia no severe electrolyte abnormality signs of renal dysfunction. Troponin normal. No transaminitis or TSH abnormality. Negative urine. Negative COVID. Patient feeling fine here. X-ray without acute findings per radiology report. Seems likely episode of probable SVT overnight. Patient is quite sensitive to medications. Discussed with her daughter Christine via phone. Will reach out to [facility] cardiology briefly but patient does live by herself and family and patient does some concerns regarding her sensitivities possibly starting any medications for better control and in shared decision making feel that observation would be beneficial. DIAGNOSIS: Palpitations, chest pain, paroxysmal SVT DISPOSITION: Hospitalist will evaluate Patient was agreeable with this plan. Past Med/Surg History Problem List (Updated 09/04/24 @ 11:01 by Yokasta Bradford PA-C) Chest pain (Acute) Palpitations (Acute) Infiltrating lobular carcinoma of right breast in female Hip fracture (Acute) Hypokalemia Hypomagnesemia DVT prophylaxis Disposition to allergy in upper respiratory tract Costochondritis (Chronic) HX Medical History (Updated 09/04/24 @ 11:01 by Yokasta Bardford PA-C) NSVT (nonsustained ventricular tachycardia) Paroxysmal SVT (supraventricular tachycardia) History of CVA (cerebrovascular accident) History of Clostridioides difficile infection 2019 GERD (gastroesophageal reflux disease) controlled, stable per pt Surgical History History of open reduction and internal fixation (ORIF) procedure RIGHT HIP-06/18/2018: SAB at L3-L4, 1 attempt. No issues per anesthesia postop progress note. History of anesthesia reaction WITH HERNIA REPAIR [facility] ANESTHESIA-HOARSENESS FOR AWHILE-PT REQUESTING USE OF LMA FOR SURGERY History of lumpectomy of left breast BENIGN History of esophagogastroduodenoscopy (EGD) History of colonoscopy H/O hernia repair X 2 History of hysterectomy Family History Sister Family history of diabetes mellitus Other Family history non-contributory Social History Smoking Status: Never smoker Second Hand Exposure: Yes ( A CHILD/AT WORK IN THE PAST); Do You Dip or Chew Tobacco: No; Hx Alcohol Use: No Hx Substance Use: No Preferred Language: [place] Communication Ability: Effective School Admissions Representative Required: No Beliefs That Will Affect Care: None marital status: Current Living Situation: Alone current occupational status: retired Other Information That Helps Us Care for You: No Feels Safe at Home: Yes Safety Concerns: Feels Safe At This Time Assistive Devices: None Allergies Allergies Allergy/AdvReac Type Severity Reaction Status Date / Time Cipro Allergy Unknown STOMACH Verified 04/26/17 21:15 PAINS ciprofloxacin AdvReac Unknown STOMACH Verified 11/23/23 20:30 PAINS metronidazole AdvReac Unknown STOMACH/DIGESTIVE Verified 11/23/23 20:30 PAIN NSAIDS (Non-Steroidal AdvReac Unknown STOMACH Verified 11/23/23 20:30 Anti-Inflamma PAIN Sulfa (Sulfonamide AdvReac Unknown SEVERE Verified 11/23/23 20:30 Antibiotics) STOMACH PAINS Home Meds Home Medications Medication Instructions Recorded Confirmed lactobacillus combination no.4 3 3,000 mmu cells PO QAM 06/04/21 09/04/24 billion cell capsule (Probiotic) famotidine 20 mg PO DAILY GERD 06/07/21 09/04/24 anastrozole 1 mg tablet 1 mg PO DAILY 11/23/23 09/04/24 calcium carbonate 1,200 mg PO DAILY 09/04/24 09/04/24 cholecalciferol (vitamin D3) 25 25 mcg PO DAILY 09/04/24 09/04/24 mcg (1,000 unit) tablet denosumab 60 mg/mL subcutaneous 60 mg subcut Q6M 09/04/24 09/04/24 syringe (Prolia) Previous Rx's Medication Instructions Recorded aspirin 81 mg tablet,delayed 81 mg PO QAM #30 tabs 11/24/23 release rosuvastatin 20 mg tablet 20 mg PO QAM #30 tabs 11/24/23 Results & Data (ED) Vital Signs Vital Signs - 24 hr 09/04/24 06:10 09/04/24 06:10 09/04/24 06:10 Temperature 36.7 C Temperature Source Oral Pulse Rate 107 H Pulse Rate [Right] Pulse Rate from SpO2 Sensor Pulse Rhythm [Right] Pulse Strength [Right] Respiratory Rate 18 Respiratory Effort / Characteristics Non-Labored Non-Labored Respiratory Depth Normal Normal Respiratory Pattern Blood Pressure 153/86 H Blood Pressure [Left Arm] Blood Pressure [Left Calf] Blood Pressure Mean 108 Blood Pressure Mean [Left Arm] Blood Pressure Mean [Left Calf] Blood Pressure Position [Left Arm] Blood Pressure Position [Left Calf] Pulse Oximetry 98 Oxygen Delivery Method Room Air Room Air Sepsis Recent Fever Within 48 Hours No Sepsis New/Unexplained Change in Mental Status No Sepsis Action Taken by Nursing No Action Required 09/04/24 06:32 09/04/24 06:32 09/04/24 06:32 Temperature Temperature Source Pulse Rate Pulse Rate [Right] Pulse Rate from SpO2 Sensor Pulse Rhythm [Right] Pulse Strength [Right] Respiratory Rate Respiratory Effort / Characteristics Respiratory Depth Respiratory Pattern Blood Pressure 138/71 138/71 138/71 Blood Pressure [Left Arm] Blood Pressure [Left Calf] Blood Pressure Mean 89 89 89 Blood Pressure Mean [Left Arm] Blood Pressure Mean [Left Calf] Blood Pressure Position [Left Arm] Blood Pressure Position [Left Calf] Pulse Oximetry Oxygen Delivery Method Sepsis Recent Fever Within 48 Hours Sepsis New/Unexplained Change in Mental Status Sepsis Action Taken by Nursing 09/04/24 06:36 09/04/24 06:36 09/04/24 08:10 Temperature Temperature Source Pulse Rate 95 H 94 H Pulse Rate [Right] 85 Pulse Rate from SpO2 Sensor 94 H Pulse Rhythm [Right] Regular Pulse Strength [Right] Normal Respiratory Rate 16 18 Respiratory Effort / Characteristics Non-Labored Respiratory Depth Normal Respiratory Pattern Regular Blood Pressure Blood Pressure [Left Arm] Blood Pressure [Left Calf] 114/65 Blood Pressure Mean Blood Pressure Mean [Left Arm] Blood Pressure Mean [Left Calf] 81 Blood Pressure Position [Left Arm] Blood Pressure Position [Left Calf] Lying Pulse Oximetry 99 97 Oxygen Delivery Method Room Air Sepsis Recent Fever Within 48 Hours Sepsis New/Unexplained Change in Mental Status Sepsis Action Taken by Nursing 09/04/24 10:00 09/04/24 10:34 09/04/24 11:19 Temperature Temperature Source Pulse Rate 69 Pulse Rate [Right] 66 75 Pulse Rate from SpO2 Sensor Pulse Rhythm [Right] Regular Pulse Strength [Right] Normal Respiratory Rate 20 18 Respiratory Effort / Characteristics Non-Labored Non-Labored Spontaneous Respiratory Depth Normal Normal Respiratory Pattern Regular Blood Pressure Blood Pressure [Left Arm] 116/66 113/84 Blood Pressure [Left Calf] Blood Pressure Mean Blood Pressure Mean [Left Arm] 82 93 Blood Pressure Mean [Left Calf] Blood Pressure Position [Left Arm] Lying Lying Blood Pressure Position [Left Calf] Pulse Oximetry 97 97 Oxygen Delivery Method Room Air Room Air Sepsis Recent Fever Within 48 Hours Sepsis New/Unexplained Change in Mental Status Sepsis Action Taken by Nursing Laboratory Data 09/04/24 07:08 09/04/24 07:08 Lab Results 09/04/24 09/04/24 09/04/24 Range/Units 07:05 07:08 08:36 WBC 4.56 L (4.8-10.8) K/ul RBC 3.49 L (4.20-5.40) M/uL Hgb 12.1 (12.0-16.0) g/dl Hct 36.2 L (37.0-47.0) % MCV 103.7 H (80.0-100.0) fL MCH 34.7 H (25.0-34.0) pg MCHC 33.4 (32.0-36.0) g/dL RDW Std Deviation 53.2 H (36.4-46.3) fL RDW Coeff of Alicia 13.8 (11.5-14.5) % Plt Count 234 (130-400) K/uL MPV 8.5 L (9.4-12.4) fL Immature Gran % (Auto) 0.2 % Neut % (Auto) 49.5 % Lymph % (Auto) 27.9 % [place] % (Auto) 19.7 % Eos % (Auto) 1.8 % Baso % (Auto) 0.9 % Neut # (Auto) 2.26 (1.40-6.50) K/uL Lymph # (Auto) 1.27 (1.20-3.40) K/uL [place] # (Auto) 0.90 H (0.11-0.59) K/uL Eos # (Auto) 0.08 (0.00-0.50) K/uL Baso # (Auto) 0.04 (0.00-0.20) K/uL Immature Gran # (Auto) 0.01 (0.01-0.20) K/uL PT 10.9 (9.0-12.0) Seconds INR 1.0 (0.9-1.1) Sodium 135 L (136-145) mmol/L Potassium 3.9 (3.5-5.1) mmol/L Chloride 98 (98-107) mmol/L Carbon Dioxide 33 H (21-32) mmol/L Anion Gap 4 (3-11) BUN 17 (6-23) mg/dl Creatinine 0.60 (0.6-1.2) mg/dl Est Cr Clr Drug Dosing 48.9 ml/min eGFR 86.28 BUN/Creatinine Ratio 28.3 H (10-20) Glucose 96 (70-99(Fasting)) mg/dl Calcium 9.4 (8.6-10.3) mg/dl Magnesium 1.8 (1.7-2.4) mg/dl Total Bilirubin 1.2 H (0.2-1.0) mg/dl AST 22 (13-39) U/L ALT 17 (7-52) U/L Alkaline Phosphatase 46 (34-104) U/L Troponin I High Sens 4.9 (0-14) pg/ml Total Protein 6.9 (6.0-8.3) gm/dl Albumin 4.3 (3.4-5.0) gm/dl Globulin 2.6 (2.5-4.0) gm/dl Albumin/Globulin Ratio 1.7 (0.9-2) TSH 1.921 (0.300-4.500) uIu/ml Urine Color Yellow Urine Appearance Clear (Clear) Urine pH 7.5 (4.5-7.5) Ur Specific [place] 1.011 (1.000-1.030) Urine Protein Negative (Negative) Urine Glucose (UA) Negative (Negative) Urine Ketones Negative (Negative) Urine Blood Trace H (Negative) Urine Nitrite Negative (Negative) Urine Bilirubin Negative (Negative) Urine Urobilinogen Negative (Negative) Ur Leukocyte Esterase Negative (Negative) Urine WBC (Auto) 0-5 (0-5) /hpf Urine RBC (Auto) 0-2 (0-2) /hpf U Hyaline Cast (Auto) 0-2 (0-2) /lpf U Epithel Cells (Auto) 0-2 (0-2) /hpf Urine Bacteria (Auto) None Seen (None Seen) SARS-CoV-2, RNA, NAAT NEGATIVE (NEGATIVE) Imaging Data Radiologist's Impression: Chest X-Ray 09/04/24 06:43 EXAM: XR chest 1V portable CLINICAL HISTORY: Dysrhythmia, chest pain. TECHNIQUE: An X-ray image of the chest is obtained in AP projection. COMPARISON: 11/23/2023 X-ray. FINDINGS: Pulmonary Parenchyma: Redemonstration of bilateral interstitial coarsening is obvious at the right lower lung zone, possibly senile changes. No evidence of consolidation, collapse, or focal opacities. No pulmonary nodules are identified. No evidence of pleural effusion or pleural thickening. Heart and Mediastinum: Heart size and shape are normal. No mediastinal widening or masses. No hilar or mediastinal lymphadenopathy. Bony Thorax: Bony thorax appears intact without fractures or deformities. Soft Tissues: Unremarkable. IMPRESSION: No acute cardiopulmonary abnormalities are identified. No interval changes. Electronically signed by Mikhail Zelaya 09-04-2024 07:34 AM Discharge Plan Visit Data Chief Complaint: Arrhythmia/Palpitations Stated Complaint: Arrhythmia/Palpitations ED Provider: Johnathon Flores Discharge Problem: Palpitations, Chest pain Patient Disposition: Admitted As Inpatient Discharge Instructions Interventions: ED Discharge Assessment Last Done: 09/04/24 11:32
[2024-09-04 07:25] LABS: Basophils # (auto) 0.04 K/uL (0.00-0.20); Basophils % (auto) 0.9 %; Eosinophils # (auto) 0.08 K/uL (0.00-0.50); Eosinophils % (auto) 1.8 %; Hematocrit (blood only) 36.2 % (37.0-47.0); Hemoglobin 12.1 g/dl (12.0-16.0); Immature Granulocytes # (auto) 0.01 K/uL (0.01-0.20); Immature Granulocytes % (auto) 0.2 %; Lymphocytes # (auto) 1.27 K/uL (1.20-3.40); Lymphocytes % (auto) 27.9 %; Mean Corpuscular Hemoglobin 34.7 pg (25.0-34.0); Mean Corpuscular Hgb Conc 33.4 g/dL (32.0-36.0); Mean Corpuscular Volume 103.7 fL (80.0-100.0); Mean Platelet Volume 8.5 fL (9.4-12.4); Monocytes % (auto) 19.7 %; Neutrophils # (auto) 2.26 K/uL (1.40-6.50); Neutrophils % (auto) 49.5 %; Platelet Count 234 K/uL (130-400); RDW Coefficient of Variation 13.8 % (11.5-14.5); RDW Standard Deviation 53.2 fL (36.4-46.3); Red Blood Count 3.49 M/uL (4.20-5.40); White Blood Count 4.56 K/ul (4.8-10.8)
[2024-09-04 07:34] LABS: Prothrombin Time 10.9 Seconds (9.0-12.0)
--- NOTE | 2024-09-04 07:34 | XRay Report ---
EXAM: XR chest 1V portable CLINICAL HISTORY: Dysrhythmia, chest pain. TECHNIQUE: An X-ray image of the chest is obtained in AP projection. COMPARISON: 11/23/2023 X-ray. FINDINGS: Pulmonary Parenchyma: Redemonstration of bilateral interstitial coarsening is obvious at the right lower lung zone, possibly senile changes. No evidence of consolidation, collapse, or focal opacities. No pulmonary nodules are identified. No evidence of pleural effusion or pleural thickening. Heart and Mediastinum: Heart size and shape are normal. No mediastinal widening or masses. No hilar or mediastinal lymphadenopathy. Bony Thorax: Bony thorax appears intact without fractures or deformities. Soft Tissues: Unremarkable. IMPRESSION: No acute cardiopulmonary abnormalities are identified. No interval changes. Electronically signed by Mikhail Zelaya 09-04-2024 07:34 AM
[2024-09-04 08:25] LABS: Albumin Globulin Ratio 1.7 (0.9-2); Albumin Level 4.3 gm/dl (3.4-5.0); BUN Creatinine Ratio 28.3 (10-20); Bilirubin,Total 1.2 mg/dl (0.2-1.0); Calcium 9.4 mg/dl (8.6-10.3); Creatinine Clr Calc Pharmacy 48.9 ml/min; Globulin 2.6 gm/dl (2.5-4.0); Magnesium 1.8 mg/dl (1.7-2.4); Potassium 3.9 mmol/L (3.5-5.1); Total Protein 6.9 gm/dl (6.0-8.3)
[2024-09-04 08:31] LABS: Troponin I High Sensitivity 4.9 pg/ml (0-14)
[2024-09-04 08:41] LABS: Thyroid Stimulating Hormone 1.921 uIu/ml (0.300-4.500)
[2024-09-04 08:53] LABS: Appearance Urine Clear (Clear); Bacteria Urine Automated None Seen (None Seen); Bilirubin Urine Negative (Negative); Blood Urine Trace (Negative); Cast Urine Automated 0-2 /lpf (0-2); Color Urine Yellow; Epithelial Cell Urine Auto 0-2 /hpf (0-2); Glucose Urine UA Negative (Negative); Ketones Urine Negative (Negative); Leukocyte Esterase Urine Negative (Negative); Nitrite Urine Negative (Negative); Protein Urine Negative (Negative); RBC Urine Automated 0-2 /hpf (0-2); Specific Gravity Urine 1.011 (1.000-1.030); Urobilinogen Urine Negative (Negative); WBC Urine Automated 0-5 /hpf (0-5); pH Urine 7.5 (4.5-7.5)
--- NOTE | 2024-09-04 10:39 | History & Physical Report ---
Date of Service September 04, 2024 Assessment & Plan (1) Palpitations: (2) Paroxysmal SVT (supraventricular tachycardia): (3) NSVT (nonsustained ventricular tachycardia): (4) History of CVA (cerebrovascular accident): (5) Infiltrating lobular carcinoma of right breast in female: Plan This is an 88yo F with PMH of NSVT, history of breast cancer on Arimidex, history of CVA, remote history of C. difficile, hyperlipidemia and other medical problems listed below who presents from home after 2 episodes of palpitations that woke her up overnight. History of paroxysmal SVT, NSVT Overnight symptoms with associated CP have resolved, HR now [address] Reynoso in Apr 2024 for similar symptoms: * 14-day Zio patch revealed predominant sinus rhythm with 3 episodes of NSVT (longest 11 beats, average rate 135 bpm), 5 episodes of supraventricular tachycardia (longest 8 beats, average rate 107 bpm), 7 patient-triggered events and 7 diary events correlated with sinus rhythm, sinus tachycardia, supraventricular ectopic beats, no atrial fibrillation (12/12/2023) * Not previously on medication due to infrequence of symptoms at that time and reported sensitivity to medications 2D echo from October 2023 with normal left ventricular wall motion, preserved EF of 60 to 65%, mild mitral valve aneurysm, mild TR, grade 1 diastolic dysfunction ECG today with 98 bpm sinus rhythm first-grade V-block. No PVC or PAC. No acute ST segment elevation or depression with a QTc of 426 Dr. Flores discussed with Dr. Gilbert, who recommended trial of 12.5mg Toprol daily, given in ED Monitor on telemetry overnight, consider reaching out to cardiology if any a rrhythmias. Otherwise okay to follow up with cardiology in clinic History of CVA H/o acute/subacute infarct in left chao radiata in October 2023 Continue aspirin 81 mg daily Hyperlipidemia Continue Crestor History of breast Cancer On Arimidex for past breast cancer, continue DVT Ppx: SQ lovenox Code status: DNR/DNI PCP: [place] Dispo: Observation PCU Patient seen in collaboration with Dr. Ardon. Please see addendum. I spent a total of 65 minutes coordinating, documenting, and providing care for this patient excluding time spent in the performance of separately billed services or time spent by another provider/QHP. History of Present Illness Chief Complaint: palpitations Primary Care Provider: Monique Nuñez DO This is an 88yo F with PMH of NSVT, history of breast cancer on Arimidex, history of CVA, remote history of C. difficile, hyperlipidemia and other medical problems listed below who presents from home after 2 episodes of palpitations that woke her up overnight. Patient was seen by Dr. Reynoso in April for further evaluation of SVT and NSVT. 14-day Zio patch was performed to evaluate for arrhythmia which revealed "Predominant sinus rhythm, average rate 74 bpm, 3 episodes of non-sustained ventricular tachycardia (longest 11 beats, average rate 135 bpm), 5 episodes of supraventricular tachycardia (longest 8 beats, average rate 107 bpm), 7 patient-triggered events and 7 diary events correlated with sinus rhythm, sinus tachycardia, supraventricular ectopic beats, no atrial fibrillation (12/12/2023). 2D echo from October 2023 with normal left ventricular wall motion, preserved EF of 60-65%, mild mitral valve aneurysm, mild TR, grade 1 diastolic dysfunction. Was educated on managing symptoms with cold water, cou ghing and lying down due to infrequent nature of symptoms and reported sensitivity to medications. Recently, patient with notably more episodes of palpitations over past few weeks that occur mainly at night and resolve within 5-10 minutes. Did have 2 episodes overnight that lasted at least 15 min with associated left chest pressure that has completely resolved. No associated lightheadedness or syncope. Out of state daughter (physician) concerned about patient's medication tolerance, lives alone. Patient denies any recent known illness, change to alcohol and caffeine consumption. No F/C, lightheadedness, CP, SOB, N/V, abd pain, dysuria. History of constipation but had a bowel movement yesterday. Allergies Allergy/AdvReac Type Severity Reaction Status Date / Time Cipro Allergy Unknown STOMACH Verified 04/26/17 21:15 PAINS ciprofloxacin AdvReac Unknown STOMACH Verified 11/23/23 20:30 PAINS metronidazole AdvReac Unknown STOMACH/DIGESTIVE Verified 11/23/23 20:30 PAIN NSAIDS (Non-Steroidal AdvReac Unknown STOMACH Verified 11/23/23 20:30 Anti-Inflamma PAIN Sulfa (Sulfonamide AdvReac Unknown SEVERE Verified 11/23/23 20:30 Antibiotics) STOMACH PAINS Home Medications Medication Instructions Recorded Confirmed Type lactobacillus combination no.4 3 3,000 mmu cells PO QAM 06/04/21 09/04/24 History billion cell capsule (Probiotic) famotidine 20 mg PO DAILY GERD 06/07/21 09/04/24 History anastrozole 1 mg tablet 1 mg PO DAILY 11/23/23 09/04/24 History aspirin 81 mg tablet,delayed 81 mg PO QAM #30 tabs 11/24/23 09/04/24 Rx release rosuvastatin 20 mg tablet 20 mg PO QAM #30 tabs 11/24/23 09/04/24 Rx calcium carbonate 1,200 mg PO DAILY 09/04/24 09/04/24 History cholecalciferol (vitamin D3) 25 25 mcg PO DAILY 09/04/24 09/04/24 History mcg (1,000 unit) tablet denosumab 60 mg/mL subcutaneous 60 mg subcut Q6M 09/04/24 09/04/24 History syringe (Prolia) Past Med/Surg History Problem List (Updated 09/04/24 @ 11:01 by Yokasta Bradford PA-C) Chest pain (Acute) Palpitations (Acute) Infiltrating lobular carcinoma of right breast in female Hip fracture (Acute) Hypokalemia Hypomagnesemia DVT prophylaxis Disposition to allergy in upper respiratory tract Costochondritis (Chronic) HX Medical History (Updated 09/04/24 @ 11:01 by Yokasta Bradford PA-C) NSVT (nonsustained ventricular tachycardia) Paroxysmal SVT (supraventricular tachycardia) History of CVA (cerebrovascular accident) History of Clostridioides difficile infection 2018 GERD (gastroesophageal reflux disease) controlled, stable per pt Surgical History History of open reduction and internal fixation (ORIF) procedure RIGHT HIP-06/18/2018: SAB at L3-L4, 1 attempt. No issues per anesthesia postop progress note. History of anesthesia reaction WITH HERNIA REPAIR [facility] ANESTHESIA-HOARSENESS FOR AWHILE-PT REQUESTING USE OF LMA FOR SURGERY History of lumpectomy of left breast BENIGN History of esophagogastroduodenoscopy (EGD) History of colonoscopy H/O hernia repair X 2 History of hysterectomy Family History Sister Family history of diabetes mellitus Other Family history non-contributory Social History Smoking Status: Never smoker Second Hand Exposure: Yes ( A CHILD/AT WORK IN THE PAST); Do You Dip or Chew Tobacco: No; Hx Alcohol Use: No Hx Substance Use: No Preferred Language: Somali Communication Ability: Effective 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 Physical Exam Physical Exam: General Appearance: WD/WN, vitals as above, NAD, sitting up in bed, pleasant, thin elderly female Head: normocephalic, atraumatic Eyes: normal inspection, PERRL, conjunctivae normal, anicteric sclerae ENT: external ear and nose normal, oropharynx normal Neck: normal visual inspection, trachea midline, no thyromegaly Respiratory: normal respiratory effort, lungs clear to auscultation, no wheeze, rales, rhonchi. No accessory muscle use Cardiovascular: regular rate, rhythm, normal peripheral pulses, no BLE edema. Vessels: no JVD Chest: normal inspection of chest Abdomen/GI: normal bowel sounds, soft, nontender, no hepatosplenomegaly Extremities/Musculoskeletal: no cyanosis or clubbing, extremities motor strength 5/5 Neurologic: PERRL, EOMI, accommodation nl, no face palsy, no dysarthria, CN's II-XI intact bilaterally and moves all extremities Psychiatric: A+Ox3, euthymic affect Skin: no rashes, normal color, warm/dry Results & Data Results & Data Vital Signs (Past 12 Hours) Vital Signs Temp Pulse Pulse Resp BP BP Pulse Ox 09/04/24 10:34 69 09/04/24 08:10 85 18 114/65 97 09/04/24 06:36 94 H 16 99 09/04/24 06:36 95 H 09/04/24 06:32 138/71 09/04/24 06:32 138/71 09/04/24 06:32 138/71 09/04/24 06:10 09/04/24 06:10 36.7 C 107 H 18 153/86 H 98 O2 Del Method 09/04/24 10:34 09/04/24 08:10 Room Air 09/04/24 06:36 09/04/24 06:36 09/04/24 06:32 09/04/24 06:32 09/04/24 06:32 09/04/24 06:10 Room Air 09/04/24 06:10 Room Air Laboratory Results Short CBC 09/04/24 Range/Units 07:08 WBC 4.56 L (4.8-10.8) K/ul Hgb 12.1 (12.0-16.0) g/dl Hct 36.2 L (37.0-47.0) % Plt Count 234 (130-400) K/uL BMP 09/04/24 07:08 Sodium 135 L Potassium 3.9 Chloride 98 Carbon Dioxide 33 H BUN 17 Creatinine 0.60 Glucose 96 Calcium 9.4 Liver Function 09/04/24 Range/Units 07:08 Total Bilirubin 1.2 H (0.2-1.0) mg/dl AST 22 (13-39) U/L ALT 17 (7-52) U/L Alkaline Phosphatase 46 (34-104) U/L Albumin 4.3 (3.4-5.0) gm/dl Urine 09/04/24 Range/Units 08:36 Urine Color Yellow Urine Appearance Clear (Clear) Urine pH 7.5 (4.5-7.5) Ur Specific [place] 1.011 (1.000-1.030) Urine Protein Negative (Negative) Urine Glucose (UA) Negative (Negative) Diagnostic Findings Chest X-Ray 09/04/24 06:43 EXAM: XR chest 1V portable CLINICAL HISTORY: Dysrhythmia, chest pain. TECHNIQUE: An X-ray image of the chest is obtained in AP projection. COMPARISON: 11/23/2023 X-ray. FINDINGS: Pulmonary Parenchyma: Redemonstration of bilateral interstitial coarsening is obvious at the right lower lung zone, possibly senile changes. No evidence of consolidation, collapse, or focal opacities. No pulmonary nodules are identified. No evidence of pleural effusion or pleural thickening. Heart and Mediastinum: Heart size and shape are normal. No mediastinal widening or masses. No hilar or mediastinal lymphadenopathy. Bony Thorax: Bony thorax appears intact without fractures or deformities. Soft Tissues: Unremarkable. IMPRESSION: No acute cardiopulmonary abnormalities are identified. No interval changes. Electronically signed by Mikhail Zelaya 09-04-2024 07:34 AM Supervising Physician Co-Signing Physician Notes Pt seen and examined, labs and imagings reviewed. Has complaints of increasing frequency of palpitations bothering her but no new medication or dietary habit changes. otherwise she states she is in her usual state of health. EKG was SR w/ 1st degree HB. CXR no new finding. tsh nl. trop nl. c/w tele, cardio consult, low dose metoprolol on Exam: GENERAL: Alert and oriented x3. NAD, on RA. Pleasant lady. HEENT: No pallor, no icterus. Pupils equal, round and reactive to light. Oral mucosa moist. NECK: No JVD, no neck masses. HEART: S1 and S2 heard. Regular rate and rhythm. No murmur, no gallop. RESPIRATORY SYSTEM: Normal AP diameter. No accessory muscle use. No wheezing, no crackles. ABDOMEN: Soft, bowel sounds present, nontender, no distention. CENTRAL NERVOUS SYSTEM: No facial droop. Speech is clear. Obeys simple commands. Moves extremities. EXTREMITIES: No edema, no erythema seen. I have seen and examined the patient and have discussed the case with the provider above. I agree with the assessment and plan as stated. Time spent 25 min
[2024-09-04] MEDS ORDERED: ONDANSETRON INJ 2 MG/ML 2 ML VIAL IV PRN (12:15)
[2024-09-04] MEDS ORDERED: ACETAMINOPHEN 325 MG TAB PO PRN (12:15)
[2024-09-04] MEDS ORDERED: POLYETHYLENE (MIRALAX) 17 GM PACK PO PRN (12:15)
[2024-09-04] MEDS: METOPROLOL SUCC 25MG EXT REL TAB PO SCH (14:35)
[2024-09-04] MEDS: FAMOTIDINE 20 MG TAB PO PRN (14:35)
[2024-09-04] MEDS: ENOXAPARIN INJ 30 MG/0.3 ML SYR SQ SCH (21:48)
[2024-09-04] MEDS: CALCIUM CARBONATE 500 MG CHEWABLE TAB PO SCH (21:48)
--- NOTE | 2024-09-05 05:49 | Electrocardiogram Report ---
Test Reason : Blood Pressure : */* mmHG Vent. Rate : 98 BPM Atrial Rate : 98 BPM P-R Int : 216 ms QRS Dur : 74 ms QT Int : 334 ms P-R-T Axes : 75 43 58 degrees QTcB Int : 426 ms Sinus rhythm with 1st degree A-V block Septal infarct (cited on or before 17-Jun-2018) Abnormal ECG When compared with ECG of 23-Nov-2023 20:25, No significant change was found Confirmed by Gonsalo Moon ([id number]) on 09/05/2024 5:49:14 AM Referred By: REFERRED SELF Confirmed By: Gonsalo Moon
[2024-09-05 06:42] LABS: Hematocrit (blood only) 32.1 % (37.0-47.0); Mean Corpuscular Hemoglobin 34.9 pg (25.0-34.0); Mean Corpuscular Hgb Conc 34.3 g/dL (32.0-36.0); Mean Corpuscular Volume 101.9 fL (80.0-100.0); Mean Platelet Volume 8.9 fL (9.4-12.4); Platelet Count 225 K/uL (130-400); RDW Coefficient of Variation 13.4 % (11.5-14.5); RDW Standard Deviation 50.4 fL (36.4-46.3); Red Blood Count 3.15 M/uL (4.20-5.40); White Blood Count 4.66 K/ul (4.8-10.8)
[2024-09-05 07:11] LABS: BUN Creatinine Ratio 28.6 (10-20); Calcium 8.6 mg/dl (8.6-10.3); Creatinine Clr Calc Pharmacy 51.6 ml/min; Magnesium 1.8 mg/dl (1.7-2.4); Potassium 3.8 mmol/L (3.5-5.1)
[2024-09-05 08:36] VITALS: RESP 18; TEMP 97.5
[2024-09-05] MEDS: MAGNESIUM SULFATE / D5W 1 GM/100 ML BAG IV ONE (09:25)
[2024-09-05] MEDS: POTASSIUM CHLORIDE CRTAB 20 MEQ TABCR PO STA (09:25)
[2024-09-05] MEDS: ANASTROZOLE 1 MG TAB PO SCH (09:26)
[2024-09-05] MEDS: ADVANCED PROBIOTIC 625 MG CAPSULE PO SCH (09:26)
[2024-09-05] MEDS: ROSUVASTATIN CALCIUM 20 MG TAB PO SCH (09:26)
[2024-09-05] MEDS: ASPIRIN 81 MG ECTAB PO SCH (09:26)
--- NOTE | 2024-09-05 11:33 | Discharge Summary ---
Discharge Summary Date of Service September 05, 2024 Principal Dx & Hospital Course #1 = Principal Diagnosis (1) Palpitations: (2) Paroxysmal SVT (supraventricular tachycardia): (3) NSVT (nonsustained ventricular tachycardia): (4) History of CVA (cerebrovascular accident): (5) Infiltrating lobular carcinoma of right breast in female: Plan This is an 88yo F with PMH of NSVT, history of breast cancer on Arimidex, history of CVA, remote history of C. difficile, hyperlipidemia and other medical problems listed below who presents from home after 2 episodes of palpitations that woke her up overnight. History of paroxysmal SVT, NSVT Overnight symptoms with associated CP have resolved Seen by Dr. Reynoso in Apr 2024 for similar symptoms: * 14-day Zio patch revealed predominant sinus rhythm with 3 episodes of NSVT (longest 11 beats, average rate 135 bpm), 5 episodes of supraventricular tachycardia (longest 8 beats, average rate 107 bpm), 7 patient-triggered events and 7 diary events correlated with sinus rhythm, sinus tachycardia, supraventricular ectopic beats, no atrial fibrillation (12/12/2023) * Not previously on medication due to infrequence of symptoms at that time and reported sensitivity to medications 2D echo from October 2023 with normal left ventricular wall motion, preserved EF of 60 to 65%, mild mitral valve aneurysm, mild TR, grade 1 diastolic dysfunction ECG in ED with 98 bpm sinus rhythm first-grade V-block. No PVC or PAC. No acute ST segment elevation or depression with a QTc of 426 Dr. Flores discussed with Dr. Gilbert, who recommended trial of 12.5mg Toprol daily, given in ED Update as of 09/07/24: Pt is tolerating metoprolol thus far. Tele reviewed w/o irregular Heart beat or arrhythmia. She had an episode of palpitations at 2330 that did not correlate with any irregularity. Sx lasted approx 1-2 min Pt reports her sx at home lasted 15 + minutes Chronic Hyponatremia pt with chronic sodium levels of 132-134 at OP Today 131, pt reports excessive water intake and minimal salt intake recommend PCP follow up for work up of possible SIADH vs polydipsia History of CVA H/o acute/subacute infarct in left chao radiata in October 2023 Continue ASA, Statin Hyperlipidemia Continue Crestor History of breast Cancer On Arimidex for past breast cancer, continue We discussed her recent L breast mammo done in May and encourage her to follow up with PCP For breast MRI Code status: DNR/DNI PCP: [place] Dispo: Discharge to home Patient seen in collaboration with Dr. Regan, Please see addendum. I spent a total of 50 minutes coordinating, documenting, and providing care for this patient excluding time spent in the performance of separately billed services or time spent by another provider/QHP. Notes For Next Care Provider Please have patient seen by cardiology within the next 2 weeks if possible. She currently doesn't have an appt until November. It is recommended she undergo another outpatient ZIO patch. Pt had an echocardiogram on day of discharge. This was pending at time of disc harge. Please repeat a BMP and Magnesium at her follow up appointment. If patient is continuing to have palpitations could consider uptitration of metoprolol to 25mg if her HR/BP allows. Pt brought up her mammogram done in May. She has concerns regarding her breast density and has been having some L sided breast pain. Would encourage L breast MRI as outpt given her history. Medication Changes From Visit Metoprolol Succinate 12.5mg daily added. Admission HPI Per Admitting Provider This is an 88yo F with PMH of NSVT, history of breast cancer on Arimidex, history of CVA, remote history of C. difficile, hyperlipidemia and other medical problems listed below who presents from home after 2 episodes of palpitations that woke her up overnight. Patient was seen by Dr. Reynoso in April for further evaluation of SVT and NSVT. 14-day Zio patch was performed to evaluate for arrhythmia which revealed "Predominant sinus rhythm, average rate 74 bpm, 3 episodes of non-sustained ventricular tachycardia (longest 11 beats, average rate 135 bpm), 5 episodes of supraventricular tachycardia (longest 8 beats, average rate 107 bpm), 7 patient-triggered events and 7 diary events correlated with sinus rhythm, sinus tachycardia, supraventricular ectopic beats, no atrial fibrillation (12/12/2023). 2D echo from October 2023 with normal left ventricular wall motion, preserved EF of 60-65%, mild mitral valve aneurysm, mild TR, grade 1 diastolic dysfunction. Was educated on managing symptoms with cold water, coughing and lying down due to infrequent nature of symptoms and reported sensitivity to medications. Recently, patient with notably more episodes of palpitations over past few weeks that occur mainly at night and resolve within 5-10 minutes. Did have 2 episodes overnight that lasted at least 15 min with associated left chest pressure that has completely resolved. No associated lightheadedness or syncope. Out of state daughter (physician) concerned about patient's medication tolerance, lives alone. Patient denies any recent known illness, change to alcohol and caffeine consumption. No F/C, lightheadedness, CP, SOB, N/V, abd pain, dysuria. History of constipation but had a bowel movement yesterday. Admission Exam Per Admitting Provider General Appearance: WD/WN, vitals as above, NAD, sitting up in bed, pleasant, thin elderly female Head: normocephalic, atraumatic Eyes: normal inspection, PERRL, conjunctivae normal, anicteric sclerae ENT: external ear and nose normal, oropharynx normal Neck: normal visual inspection, trachea midline, no thyromegaly Respiratory: normal respiratory effort, lungs clear to auscultation, no wheeze, rales, rhonchi. No accessory muscle use Cardiovascular: regular rate, rhythm, normal peripheral pulses, no BLE edema. Vessels: no JVD Chest: normal inspection of chest Abdomen/GI: normal bowel sounds, soft, nontender, no hepatosplenomegaly Extremities/Musculoskeletal: no cyanosis or clubbing, extremities motor strength 5/5 Neurologic: PERRL, EOMI, accommodation nl, no face palsy, no dysarthria, CN's II-XI intact bilaterally and moves all extremities Psychiatric: A+Ox3, euthymic affect Skin: no rashes, normal color, warm/dry Discharge Exam Gen: Thin, F, appears younger than stated age, NAD, A&O x3 HEENT: Normocephalic, atraumatic, conjunctivae moist, sclerae anicteric, mucous membranes moist. Lung: Clear to Auscultation bilaterally, no wheezes/rales/rhonchi Heart: Regular rate, regular rhythm, no murmurs, rubs, or gallops Abdomen: Soft, NT, ND +BS x 4 Extremities: No edema Skin: Warm, no rash, negative turgor. Updated Medication List Medication Instructions Recorded Confirmed Type lactobacillus combination no.4 3 3,000 mmu cells PO QAM 06/04/21 09/04/24 History billion cell capsule (Probiotic) famotidine 20 mg PO DAILY GERD 06/07/21 09/04/24 History anastrozole 1 mg tablet 1 mg PO DAILY 11/23/23 09/04/24 History aspirin 81 mg tablet,delayed 81 mg PO QAM #30 tabs 11/24/23 09/04/24 Rx release rosuvastatin 20 mg tablet 20 mg PO QAM #30 tabs 11/24/23 09/04/24 Rx calcium carbonate 1,200 mg PO DAILY 09/04/24 09/04/24 History cholecalciferol (vitamin D3) 25 25 mcg PO DAILY 09/04/24 09/04/24 History mcg (1,000 unit) tablet denosumab 60 mg/mL subcutaneous 60 mg subcut Q6M 09/04/24 09/04/24 History syringe (Prolia) metoprolol succinate 25 mg 12.5 mg (1/2 x 25 mg) PO QAM #30 09/05/24 Rx tablet,extended release 24 hr tabs Hospital Stay Data Consultations 09/04/24 10:22 ED Decision to Admit Stat Diagnostic Imagining Performed Chest X-Ray 09/04/24 06:43 EXAM: XR chest 1V portable CLINICAL HISTORY: Dysrhythmia, chest pain. TECHNIQUE: An X-ray image of the chest is obtained in AP projection. COMPARISON: 11/23/2023 X-ray. FINDINGS: Pulmonary Parenchyma: Redemonstration of bilateral interstitial coarsening is obvious at the right lower lung zone, possibly senile changes. No evidence of consolidation, collapse, or focal opacities. No pulmonary nodules are identified. No evidence of pleural effusion or pleural thickening. Heart and Mediastinum: Heart size and shape are normal. No mediastinal widening or masses. No hilar or mediastinal lymphadenopathy. Bony Thorax: Bony thorax appears intact without fractures or deformities. Soft Tissues: Unremarkable. IMPRESSION: No acute cardiopulmonary abnormalities are identified. No interval changes. Electronically signed by Mikhail Zelaya 09-04-2024 07:34 AM Pending Results Patient Have Any Pending Studies at Discharge: Yes (Echocardiogram results pending) Discharge Instructions Given to Patient (Per Discharging Provider) MEDICATION CHANGES: New Medications: 1. Metoprolol Succinate 12.5mg once daily for heart palpitations. Continue all other medications as prescribed. SUMMARY OF TEST RESULTS: You were admitted to the hospital due to having episodes of heart racing lasting several minutes. You were monitored on a heart monitor which did not reveal any irregular heart beats or arrhythmias. You were started on a medication to help control your palpitations at the recommendation of cardiology. You were given extra potassium and magnesium to help with heart palpitations. PENDING TEST RESULTS: You had an echocardiogram that is pending. Please have your primary care provider follow up with this RECOMMENDATIONS FOR FOLLOW-UP: Please follow up with your primary care provider as scheduled. It is recommended you undergo an outpatient ZIO patch heart monitor. Your Primary Care Provider can arrange this. We discussed monitoring your heart rate. There is multiple ways to do this including obtaining a home blood pressure machine, pulse ox or purchasing a smart watch that has the capability of capturing heart rhythms and ecgs. Although this are not always accurate it can be helpful in diagnosing difficult conditions that require a heart monitor. An [place] heart rate range for you is 55-90 Beats per minute. Please have your primary care provider check your Sodium, Potassium and Magnesium at your next visit. Please continue all other medications as prescribed. OTHER INSTRUCTIONS: Seek medical attention if you have: * temperature above 101 * chest pain or trouble breathing * abdominal pain, nausea, vomiting * diarrhea, dark stools or bloody stools * any unanswered questions or concerns Call 911 if symptoms are severe. Please take good care of yourself. It has been a pleasure taking care of you. Please take care of yourself. If you have any questions regarding your recent hospitalization please contact [facility] and request Darrel Cook @ [phone]. Marimar Neil PA-C Total Time Total Time Spent Total Time Spent (In Minutes): 50 minutes Supervising Physician Co-Signing Physician Notes Patient seen and examined at bedside. Patient doing well today, feels much b [place]. On exam, appears comfortable, no palpitations noted. Can follow up with cardiology outpatient. I have seen and discussed the case with the collaborating advanced practitioner. I agree with the above H&P. I have reviewed and confirmed the patients medical history, the findings on physical examination, and the patients diagnosis and treatment plan with Marimar Neil PA-C and agree with the information documented. I spent a total of 20 minutes coordinating, documenting, and providing care for this patient excluding time spent in the performance of separately billed services. All of the aforementioned completed outside of collaborating with the assigned advanced practitioner for a full treatment plan. I have reviewed the advanced practitioner's documentation, and I agree with, and take responsibility for the plan of care
[2024-09-05 11:43] VITALS: PULSE 75; O2SAT 99
[2024-09-05 12:01] VITALS: BP 114/65
--- NOTE | 2024-09-05 21:25 | Electrocardiogram Report ---
Test Reason : Blood Pressure : */* mmHG Vent. Rate : 63 BPM Atrial Rate : 63 BPM P-R Int : 220 ms QRS Dur : 94 ms QT Int : 412 ms P-R-T Axes : 51 45 61 degrees QTcB Int : 421 ms Sinus rhythm with 1st degree A-V block Otherwise normal ECG When compared with ECG of 04-Sep-2024 06:26, Vent. rate has decreased by 35 bpm Criteria for Septal infarct are no longer Present Confirmed by Gonsalo Moon ([id number]) on 09/05/2024 9:24:48 PM Referred By: REFERRED SELF Confirmed By: Gonsalo Moon
== END 2024-09-05 13:00 | disposition home or self-care (01) ==
LOC: ED 06:19 → 4W 06:19 → SUATTDRO 11:59